=== PATIENT | female | born 1960 | race Caucasian/White ===

== ENCOUNTER 2022-04-10 10:31 | Emergency (ER) | payer OTHER ==
[2022-04-10] MEDS ORDERED: Zofran 4 MG/2 ML VIAL IV ONE (10:38)
[2022-04-10] MEDS ORDERED: PROTONIX 40 MG IV IV ONE ×2 (10:38→11:05)
--- NOTE | 2022-04-10 10:38 | ERPHSYRPT ---
- History of Present Illness Time Seen by Provider: 04/10/22 10:34 Source: patient, family, EMS Exam Limitations: no limitations Physician History: pt has been sobreath since yesterday and now with nausea. Denies CP or heart problems but has chronic lung problems. Denies Abd pain or neuro symptoms. Is on anxiety meds and ran out of her xanax 4 days ago. Chest has rhonchi - got one neb on ambulance. Ext without edema and neg homans - no erythema edema or swelling. Timing/Duration: yesterday Activities at Onset: none Severity of Dyspnea-Max: moderate Severity of Dyspnea-Current: moderate Possible Cause: occasional episodes, chronic episodes Modifying Factors: Improves With: albuterol nebulizer Associated Symptoms: anxiety, wheezing, weakness Allergies/Adverse Reactions: No Known Drug Allergies Allergy (Verified 04/10/22 10:42) Home Medications: Fluoxetine HCl 10 mg [Prozac 10 mg] 10 mg PO DAILY 05/30/14 [History] Hx Tetanus, Diphtheria Vaccination/Date Given: No Hx Influenza Vaccination/Date Given: No Hx Pneumococcal Vaccination/Date Given: No - Review of Systems Constitutional: No Fever, No Chills Eyes: No Symptoms Ears, Nose, & Throat: No Symptoms Respiratory: Dyspnea, No Cough Cardiac: No Chest Pain, No Edema, No Syncope Abdominal/Gastrointestinal: No Abdominal Pain, No Nausea, No Vomiting, No Diarrhea Genitourinary Symptoms: No Dysuria Musculoskeletal: No Back Pain, No Neck Pain Skin: No Rash Neurological: No Dizziness, No Focal Weakness, No Sensory Changes Psychological: No Symptoms Endocrine: No Symptoms Hematologic/Lymphatic: No Symptoms Immunological/Allergic: No Symptoms All Other Systems: Reviewed and Negative - Past Medical History Pertinent Past Medical History: Yes Psycho-Social History: Anxiety, Depression - Past Surgical History Past Surgical History: No - Social History Smoking Status: Current every day smoker Exposure to second hand smoke: No Drug Use: none Patient Lives Alone: No - Nursing Vital Signs Nursing Vital Signs: Initial Vital Signs O2 Sat by Pulse Oximetry 97 04/10/22 10:32 Pain Scale Pain Intensity 5 - Physical Exam General Appearance: no apparent distress, alert Eye Exam: PERRL/EOMI Neck Exam: normal inspection, supple Respiratory Exam: rhonchi Cardiovascular/Chest Exam: normal heart sounds, regular rate/rhythm Abdominal/Gastrointestinal Exam: soft, No tenderness, No distention, No mass Extremity Exam: non-tender, normal range of motion, normal inspection, no calf tenderness, no pedal edema Peripheral Pulses Exam: carotid (R): 2+, carotid (L): 2+, femoral (R): 2+, femoral (L): 2+, dorsalis-pedis (R): 2+, dorsalis-pedis (L): 2+ Neurologic Exam: alert, oriented x 3, cooperative, egg packer II-XII nml as tested, sensation nml, No motor deficits Skin Exam: normal color, warm, No dry SpO2 Interpretation: normal SpO2: 96 O2 Delivery: Room Air - Course Nursing assessment & vital signs reviewed: Yes EKG Interpreted by Me: NORMAL AXIS, prolonged QT interval, Non-specific ST Changes, Other (poor r wave prog. PVCs, ) Ordered Tests: Active Orders 24 hr Category Date Time Status [employer] STAT Care 04/10/22 10:42 Active EKG-ER Only STAT Care 04/10/22 10:38 Active IV Insertion STAT Care 04/10/22 10:38 Active Pulse Oximetry (ED) STAT Care 04/10/22 10:38 Active CHEST 1 VIEW (PORTABLE) Stat Exams 04/10/22 10:53 Taken AMYLASE Stat Lab 04/10/22 11:12 Completed CBC W DIFF Stat Lab 04/10/22 11:12 Completed CMP Stat Lab 04/10/22 11:12 Completed D-DIMER QUANTITATIVE Stat Lab 04/10/22 11:12 Completed LIPASE Stat Lab 04/10/22 11:12 Completed Lactic Acid Stat Lab 04/10/22 10:38 Completed Lactic Acid Stat Lab 04/10/22 13:05 Received NT PRO BNP Stat Lab 04/10/22 11:12 Completed SODIUM Stat Lab 04/10/22 11:36 Completed TROPONIN Q3H Lab 04/10/22 11:12 Completed TROPONIN Q3H Lab 04/10/22 13:45 Ordered TROPONIN Q3H Lab 04/10/22 16:45 Ordered TROPONIN Q3H Lab 04/10/22 19:45 Ordered TROPONIN Q3H Lab 04/10/22 22:45 Ordered UA W/RFX CULTURE Stat Lab 04/10/22 Ordered Respiratory Therapy Assessment DAILY RT 04/10/22 11:49 Completed Medication Summary Generic Name Dose Route Start Last Admin Trade Name Freq PRN Reason Stop Dose Admin Sodium Chloride 1,000 mls @ 50 mls/hr 04/10/22 10:45 04/10/22 11:11 Sodium Chloride 0.9% 1000 Ml IV 05/10/22 10:44 50 mls/hr .Q20H DG Administration Discontinued Medications Generic Name Dose Route Start Last Admin Trade Name Freq PRN Reason Stop Dose Admin Albuterol/Ipratropium 3 ml 04/10/22 10:43 04/10/22 10:59 Ipratropium/Albuterol Sulfate 3 Ml Ampul.Neb IH 04/10/22 10:44 3 ml STAT ONE Administration Albuterol/Ipratropium Confirm 04/10/22 10:52 Ipratropium/Albuterol Sulfate 3 Ml Ampul.Neb Administered 04/10/22 10:53 Dose 3 ml IH .STK-MED ONE Methylprednisolone Sodium 0 mg 04/10/22 10:43 04/10/22 11:15 Succinate 125 mg/ Sterile IV 04/10/22 10:44 125 mg Water 2 ml STAT ONE Administration Famotidine 20 mg 04/10/22 10:43 04/10/22 11:17 Famotidine 20 Mg/1 Vial IV 04/10/22 10:44 20 mg STAT ONE Administration Famotidine Confirm 04/10/22 11:04 Famotidine 20 Mg/1 Vial Administered 04/10/22 11:05 Dose 20 mg IV .STK-MED ONE Lorazepam 1 mg 04/10/22 10:45 04/10/22 11:10 Lorazepam 1 Mg Tablet PO 04/10/22 10:46 1 mg STAT ONE Administration Lorazepam Confirm 04/10/22 11:05 Lorazepam 1 Mg Tablet Administered 04/10/22 11:06 Dose 1 mg .ROUTE .STK-MED ONE Lorazepam 1 mg 04/10/22 11:48 04/10/22 12:14 Lorazepam 2 Mg/1 Ml 2 Mg Vial IV 04/10/22 11:49 1 mg STAT ONE Administration Lorazepam Confirm 04/10/22 12:11 Lorazepam 2 Mg/1 Ml 2 Mg Vial Administered 04/10/22 12:12 Dose 2 mg .ROUTE .STK-MED ONE Methylprednisolone Sodium Succinate Confirm 04/10/22 11:05 Methylprednis Sod Succ 125 Mg/2 Ml Vial Administered 04/10/22 11:06 Dose 125 mg .ROUTE .STK-MED ONE Ondansetron HCl 4 mg 04/10/22 10:38 04/10/22 11:18 Ondansetron Hcl 4 Mg/2 Ml Vial IV 04/10/22 10:39 4 mg STAT ONE Administration Ondansetron HCl Confirm 04/10/22 11:04 Ondansetron Hcl 4 Mg/2 Ml Vial Administered 04/10/22 11:05 Dose 4 mg .ROUTE .STK-MED ONE Pantoprazole Sodium 40 mg 04/10/22 10:38 04/10/22 11:12 Pantoprazole 40 Mg Vial IV 04/10/22 10:39 40 mg STAT ONE Administration Pantoprazole Sodium Confirm 04/10/22 11:05 Pantoprazole 40 Mg Vial Administered 04/10/22 11:06 Dose 40 mg IV .STK-MED ONE Prochlorperazine Edisylate 10 mg 04/10/22 11:47 04/10/22 12:14 Prochlorperazine Edisylate 10 Mg/2 Ml Vial IM 04/10/22 11:48 10 mg STAT ONE Administration Prochlorperazine Edisylate Confirm 04/10/22 12:11 Prochlorperazine Edisylate 10 Mg/2 Ml Vial Administered 04/10/22 12:12 Dose 10 mg .ROUTE .STK-MED ONE Sterile Water Confirm 04/10/22 11:04 Water For Injection,Sterile 10 Ml Vial Administered 04/10/22 11:05 Dose 10 ml IJ .STK-MED ONE Lab/Rad Data: Laboratory Result Diagrams 04/10/22 11:12 04/10/22 11:36 Laboratory Results 04/10/22 04/10/22 04/10/22 Range/Units 11:36 11:12 11:12 WBC (4.0-10.5) x10^3/uL RBC (4.1-5.4) x10^6/uL Hgb (12.0-16.0) g/dL Hct (35-47) % MCV (78-100) fL MCH (26-32) pg MCHC (32-36) g/dL RDW (11.5-14.0) % Plt Count (150-450) x10^3/uL MPV (7.5-11.0) fL Gran % (36.0-66.0) % Immature Gran % (Auto) (0.00-0.4) % Nucleat RBC Rel Count (0.00-0.1) % Eos # (Auto) (0-0.5) x10^3/uL Immature Gran # (Auto) (0.00-0.03) x10^3u/L Absolute Lymphs (auto) (1.0-4.6) x10^3/uL Absolute Monos (auto) (0.0-1.3) x10^3/uL Absolute Nucleated RBC (0.00-0.01) x10^3u/L Lymphocytes % (24.0-44.0) % Monocytes % (0.0-12.0) % Eosinophils % (0.00-5.0) % Basophils % (0.0-0.4) % Absolute Granulocytes (1.4-6.9) x10^3/uL Basophils # (0-0.4) x10^3/uL D-Dimer 0.20 (0.0-0.50) ng/mL Sodium 109 L* (137-145) mmol/L Potassium (3.5-5.1) mmol/L Chloride (98-107) mmol/L Carbon Dioxide (22-30) mmol/L Anion Gap (5-15) MEQ/L BUN (7-17) mg/dL Creatinine (0.52-1.04) mg/dL Estimated GFR ML/MIN Glucose (74-106) mg/dL Lactic Acid (0.4-2.0) Calcium (8.4-10.2) mg/dL Total Bilirubin (0.2-1.3) mg/dL AST (14-36) U/L ALT (0-35) U/L Alkaline Phosphatase (38-126) U/L Troponin I < 0.012 (0.000-0.034) ng/mL NT-Pro-B Natriuret Pep (0-900) pg/mL Serum Total Protein (6.3-8.2) g/dL Albumin (3.5-5.0) g/dL Amylase (30-110) U/L Lipase (23-300) U/L 04/10/22 04/10/22 04/10/22 Range/Units 11:12 11:12 10:38 WBC 14.1 H (4.0-10.5) x10^3/uL RBC 3.66 L (4.1-5.4) x10^6/uL Hgb 11.5 L (12.0-16.0) g/dL Hct 31.4 L (35-47) % MCV 85.8 (78-100) fL MCH 31.4 (26-32) pg MCHC 36.6 H (32-36) g/dL RDW 11.9 (11.5-14.0) % Plt Count 354 (150-450) x10^3/uL MPV 9.2 (7.5-11.0) fL Gran % 88.0 H (36.0-66.0) % Immature Gran % (Auto) 0.6 H (0.00-0.4) % Nucleat RBC Rel Count 0.0 (0.00-0.1) % Eos # (Auto) 0.07 (0-0.5) x10^3/uL Immature Gran # (Auto) 0.08 H (0.00-0.03) x10^3u/L Absolute Lymphs (auto) 0.49 L (1.0-4.6) x10^3/uL Absolute Monos (auto) 1.01 (0.0-1.3) x10^3/uL Absolute Nucleated RBC 0.00 (0.00-0.01) x10^3u/L Lymphocytes % 3.5 L (24.0-44.0) % Monocytes % 7.2 (0.0-12.0) % Eosinophils % 0.5 (0.00-5.0) % Basophils % 0.2 (0.0-0.4) % Absolute Granulocytes 12.44 H (1.4-6.9) x10^3/uL Basophils # 0.03 (0-0.4) x10^3/uL D-Dimer (0.0-0.50) ng/mL Sodium 108 L* (137-145) mmol/L Potassium 3.1 L (3.5-5.1) mmol/L Chloride 74 L (98-107) mmol/L Carbon Dioxide 20 L (22-30) mmol/L Anion Gap 17.2 H (5-15) MEQ/L BUN 4 L (7-17) mg/dL Creatinine 0.47 L (0.52-1.04) mg/dL Estimated GFR > 60.0 ML/MIN Glucose 141 H (74-106) mg/dL Lactic Acid 2.9 H (0.4-2.0) Calcium 8.5 (8.4-10.2) mg/dL Total Bilirubin 1.20 (0.2-1.3) mg/dL AST 74 H (14-36) U/L ALT 40 H (0-35) U/L Alkaline Phosphatase 251 H (38-126) U/L Troponin I (0.000-0.034) ng/mL NT-Pro-B Natriuret Pep 375 (0-900) pg/mL Serum Total Protein 6.9 (6.3-8.2) g/dL Albumin 3.8 (3.5-5.0) g/dL Amylase 80 (30-110) U/L Lipase 67 (23-300) U/L - Progress Progress: improved, re-examined Air Movement: good Progress Note: 04/10/22 13:[address] Haley at [facility] and she will accept and this is OK with patient as well. Blood Culture(s) Obtained: No Antibiotics given: No Discussed with Dr.: Other (Dr. Haley) Counseled pt/family regarding: lab results, diagnosis, need for follow-up, rad results - Departure Departure Disposition: Transfer Clinical Impression: Hyponatremia, Medication withdrawal Condition: Good Critical Care Time: Yes Critical Care Time(excluding separately billable procedures): Critical 30-74 mins (monitoring for neuro seizure precautions 30 minutes.) Referrals: DOCTOR,NO FAMILY [NON-STAFF PHY W/O PRIVILEGES] - Follow up/PCP as directed
[2022-04-10] MEDS ORDERED: DUONEB 0.5-3 MG/3 ml Neb IH ONE ×2 (10:43→10:52)
[2022-04-10] MEDS ORDERED: Pepcid 20 MG VIAL IV ONE ×2 (10:43→11:04)
[2022-04-10] MEDS ORDERED: solu-MEDROL 125 MG, Sterile H2O 10 ml 2 ML IV ONE ×2 (10:43)
[2022-04-10] MEDS ORDERED: Sodium Chloride 0.9% 1000 ML 1,000 ML IV SCH (10:45)
[2022-04-10] MEDS ORDERED: Ativan 1 MG PO ONE (10:45)
[2022-04-10] MEDS ORDERED: Sterile H2O 10 ml IJ ONE (11:04)
[2022-04-10] MEDS ORDERED: Zofran 4 MG/2 ML VIAL ONE (11:04)
[2022-04-10] MEDS ORDERED: Sodium Chloride 0.9% 1000 ML 1,000 ML ONE (11:05)
[2022-04-10] MEDS ORDERED: Ativan 1 MG ONE (11:05)
[2022-04-10] MEDS ORDERED: solu-MEDROL ONE (11:05)
[2022-04-10 11:11] LABS: Absolute Neutrophil Ct (ANC) 12.44 x10^3/uL (1.4-6.9); Basophil (Absolute #) 0.03 x10^3/uL (0-0.4); Eosinophil % 0.5 % (0.00-5.0); Eosinophil (Absolute #) 0.07 x10^3/uL (0-0.5); Hematocrit 31.4 % (35-47); Hemoglobin 11.5 g/dL (12.0-16.0); Lymphocyte (Absolute #) 0.49 x10^3/uL (1.0-4.6); Lymphocytes % 3.5 % (24.0-44.0); Mean Cell Volume 85.8 fL (78-100); Mean Corpuscular Hemoglobin 31.4 pg (26-32); Mean Corpuscular Hgb Concent. 36.6 g/dL (32-36); Mean Platelet Volume 9.2 fL (7.5-11.0); Monocyte (Absolute #) 1.01 x10^3/uL (0.0-1.3); Monocytes % 7.2 % (0.0-12.0); Platelet Count 354 x10^3/uL (150-450); Red Blood Count 3.66 x10^6/uL (4.1-5.4); Red Cell Distribution Width 11.9 % (11.5-14.0); White Blood Count 14.1 x10^3/uL (4.0-10.5)
[2022-04-10 11:31] LABS: ALBUMIN 3.8 g/dL (3.5-5.0); ALKALINE PHOSPHATASE 251 U/L (38-126); AMYLASE 80 U/L (30-110); ANION GAP 17.2 MEQ/L (5-15); BLOOD UREA NITROGEN 4 mg/dL (7-17); CHLORIDE 74 mmol/L (98-107); Calcium 8.5 mg/dL (8.4-10.2); Carbon Dioxide 20 mmol/L (22-30); Creatinine 1 0.47 mg/dL (0.52-1.04); EST GLOMERULAR FILTRATION RATE > 60.0 ML/MIN; Glucose 141 mg/dL (74-106); LIPASE 67 U/L (23-300); NT PRO BNP 375 pg/mL (0-900); Potassium 3.1 mmol/L (3.5-5.1); SGOT/AST 74 U/L (14-36); SGPT/ALT 40 U/L (0-35); Total Protein 6.9 g/dL (6.3-8.2)
[2022-04-10 11:36] LABS: SODIUM 108 mmol/L (137-145)
[2022-04-10] MEDS ORDERED: Compazine 10 MG/2 ML IM ONE (11:47)
[2022-04-10] MEDS ORDERED: Ativan 2 MG/1 ML VIAL IV ONE (11:48)
[2022-04-10] MEDS ORDERED: Ativan 2 MG/1 ML VIAL ONE (12:11)
[2022-04-10] MEDS ORDERED: Compazine 10 MG/2 ML ONE (12:11)
[2022-04-10 14:00] LABS: Appearance CLEAR (CLEAR); Bilirubin NEGATIVE (NEGATIVE); Dipstick done @ ? MAIN LAB; Glucose NEGATIVE (NEGATIVE); Ketones SMALL-15 (NEGATIVE); Nitrite NEGATIVE (NEGATIVE); Protein,Urine Dip NEGATIVE (Negative); RBC NEGATIVE Ery/ul (0-5); Specific Gravity 1.015 (1.005-1.025); Urobilinogen 0.2 mg/dL (0-1)
[2022-04-10 14:02] LABS: Urine Cultured Indicated? NO
[2022-04-10 14:16] VITALS: BP 165/82; PULSE 103; O2SAT 93
[2022-04-10 15:08] LABS: Slide Review 1 YES
--- NOTE | 2022-04-10 21:03 | XRAY ---
Indication: Short of breath. Comparison: May 30, 2014. Portable chest again hyperinflated and clear. Heart not enlarged with new large hiatal hernia and intrathoracic stomach. Bony thorax intact again with mild osteopenia, degenerative changes, and scoliosis.
== END 2022-04-10 14:36 | disposition short-term general hospital (02) ==
LOC: ED 10:31
DX: E87.1 Hypo-osmolality and hyponatremia (principal); F19.239 Other psychoactive substance dependence with withdrawal, unspecified; R11.0 Nausea; R06.2 Wheezing; R53.1 Weakness; Z72.0 Tobacco use; Z79.899 Other long term (current) drug therapy
CPT/HCPCS: 36000; 36415; 71045; 80053; 81015; 82150; 83605; 83690; 83880; 84295; 84484; 85025; 85379; 93005; 93041; 94640; 94760; 96372; 96374; 96375; 99285; 99291; J2060; J2405; J2930; A9270-GY

== ENCOUNTER 2022-08-15 10:27 | Emergency (ER) | payer OTHER ==
[2022-08-15] MEDS ORDERED: Ativan 2 MG/1 ML VIAL IV ONE ×2 (10:35→15:00)
[2022-08-15] MEDS ORDERED: BABY ASPIRIN 81 MG CHEW PO ONE (10:37)
[2022-08-15] MEDS ORDERED: Sodium Chloride 0.9% 1000 ML 1,000 ML IV STA ×2 (10:37→11:50)
[2022-08-15] MEDS ORDERED: Sodium Chloride 0.9% 1000 ML 1,000 ML ONE ×2 (10:43→11:51)
[2022-08-15] MEDS ORDERED: BABY ASPIRIN 81 MG CHEW ONE (10:43)
[2022-08-15] MEDS ORDERED: Ativan 2 MG/1 ML VIAL ONE ×2 (10:44→15:06)
[2022-08-15] MEDS ORDERED: Zofran 4 MG/2 ML VIAL ONE (10:48)
[2022-08-15] MEDS ORDERED: Zofran 4 MG/2 ML VIAL IV ONE (10:49)
[2022-08-15 10:54] LABS: Absolute Neutrophil Ct (ANC) 5.08 x10^3/uL (1.4-6.9); Basophil (Absolute #) 0.14 x10^3/uL (0-0.4); Eosinophil (Absolute #) 0.08 x10^3/uL (0-0.5); Hematocrit 35.9 % (35-47); Hemoglobin 12.3 g/dL (12.0-16.0); Lymphocyte (Absolute #) 1.12 x10^3/uL (1.0-4.6); Lymphocytes % 14.7 % (24.0-44.0); Mean Cell Volume 86.9 fL (78-100); Mean Corpuscular Hemoglobin 29.8 pg (26-32); Mean Corpuscular Hgb Concent. 34.3 g/dL (32-36); Mean Platelet Volume 9.4 fL (7.5-11.0); Monocyte (Absolute #) 1.14 x10^3/uL (0.0-1.3); Neutrophil % 66.7 % (36.0-66.0); Platelet Count 334 x10^3/uL (150-450); Red Blood Count 4.13 x10^6/uL (4.1-5.4); Red Cell Distribution Width 12.4 % (11.5-14.0); White Blood Count 7.6 x10^3/uL (4.0-10.5)
[2022-08-15 11:09] LABS: ALBUMIN 3.7 g/dL (3.5-5.0); ALKALINE PHOSPHATASE 258 U/L (38-126); AMYLASE 75 U/L (30-110); ANION GAP 17.4 MEQ/L (5-15); BLOOD UREA NITROGEN 10 mg/dL (7-17); CHLORIDE 97 mmol/L (98-107); Calcium 8.1 mg/dL (8.4-10.2); Creatinine 1 0.49 mg/dL (0.52-1.04); EST GLOMERULAR FILTRATION RATE > 60.0 ML/MIN; ETHYL ALCOHOL 87 mg/dL (0-10); Glucose 106 mg/dL (74-106); LIPASE 161 U/L (23-300); MAGNESIUM 1.8 mg/dL (1.6-2.3); Potassium 3.6 mmol/L (3.5-5.1); SGOT/AST 85 U/L (14-36); SGPT/ALT 40 U/L (0-35); SODIUM 127 mmol/L (137-145); Total Protein 6.8 g/dL (6.3-8.2)
[2022-08-15 11:14] LABS: Carbon Dioxide 16 mmol/L (22-30)
--- NOTE | 2022-08-15 11:35 | ERPHSYRPT ---
- History of Present Illness Time Seen by Provider: 08/15/22 10:35 Historian: patient, family Exam Limitations: no limitations Patient Subjective Stated Complaint: Pt states "I have a headache, I am short of breath, I am nauseated." Triage Nursing Assessment: Pt presented alert and oriented X 3, skin pwd. Pt tachypneic, able to speak in clear full sentences pt anxious. unable to sit still Physician History: Patient is a 62-year-old tremulous anxious white female who presents with a complaint of shortness of breath headache especially in the back of her head chest pain which radiates to the neck. She started with all these complaints about 2 hours ago she has been sick since 4 AM. She is out of Xanax and is qu ite anxious she admits to taking 3 tablets a day instead of the recommended and prescribed 2 tablets. The significant other of this patient reports that a year or so ago she had a fall hit the back of her head had a large hematoma and that she has complained of pain in her head and neck since.The patient was recently admitted hospitalized at [facility] for a hypoknee Trimix situation. Timing/Duration: today Activities at Onset: emotional stress Quality: aching Location: substernal Chest Pain Radiation: neck Severity of Pain-Max: moderate Severity of Pain-Current: moderate Modifying Factors: Improves With: nothing Prior Chest Pain/Cardiac Workup: no prior cardiac workup Nitro Today/Relief: no nitro taken today Aspirin Treatment Today: no aspirin today Allergies/Adverse Reactions: No Known Drug Allergies Allergy (Verified 04/10/22 10:42) Home Medications: Fluoxetine HCl 10 mg [Prozac 10 mg] 10 mg PO DAILY 05/30/14 [History] Donepezil HCl [Aricept] 5 mg PO DAILY 08/15/22 [History] Levothyroxine Sodium 50 Mcg [Synthroid 50 Mcg] 50 mcg PO DAILY 08/15/22 [History] Hx Tetanus, Diphtheria Vaccination/Date Given: No Hx Influenza Vaccination/Date Given: No Hx Pneumococcal Vaccination/Date Given: No Immunizations Up to Date: Yes Travel Risk - International Travel Have you traveled outside of the country in past 3 weeks: No - Coronavirus Screening Are you exhibiting any of the following symptoms?: Yes Symptoms: Shortness of Breath, Headaches/Body Aches/Fatigue - Vaccine Status Have you recieved a Covid-19 vaccination: Yes Ribbon Cleaner: Unknown - Vaccination Dates Date of 2cond Vaccination (if applicable): 2020 Dates if Unknown: ? - Review of Systems Constitutional: No Fever, No Chills Eyes: No Symptoms Ears, Nose, & Throat: No Symptoms Respiratory: No Cough, No Dyspnea Cardiac: No Chest Pain, No Edema, No Syncope Abdominal/Gastrointestinal: No Abdominal Pain, No Nausea, No Vomiting, No Diarrhea Genitourinary Symptoms: No Dysuria Musculoskeletal: No Back Pain, No Neck Pain Skin: No Rash Neurological: Tremors, No Dizziness, No Focal Weakness, No Sensory Changes Psychological: No Symptoms, Anxiety Endocrine: No Symptoms All Other Systems: Reviewed and Negative - Past Medical History Pertinent Past Medical History: Yes Psycho-Social History: Anxiety, Depression - Past Surgical History Past Surgical History: No - Social History Smoking Status: Current every day smoker Exposure to second hand smoke: No Drug Use: none Patient Lives Alone: No - Nursing Vital Signs Nursing Vital Signs: Initial Vital Signs Temperature 97.4 F 08/15/22 10:28 Pulse Rate 104 H 08/15/22 10:28 Respiratory Rate 26 H 08/15/22 10:28 Blood Pressure 146/87 08/15/22 10:28 O2 Sat by Pulse Oximetry 98 08/15/22 10:28 Pain Scale Pain Intensity 6 - Physical Exam General Appearance: moderate distress, alert Eye Exam: PERRL/EOMI, eyes nml inspection Ears, Nose, Throat Exam: normal ENT inspection, moist mucous membranes Neck Exam: normal inspection, non-tender, supple, full range of motion Respiratory Exam: normal breath sounds, lungs clear, No respiratory distress Cardiovascular Exam: regular rate/rhythm, normal heart sounds Gastrointestinal/Abdomen Exam: soft, No tenderness, No mass Back Exam: normal inspection, No CVA tenderness, No vertebral tenderness Extremity Exam: normal inspection, normal range of motion Neurologic Exam: alert, oriented x 3, cooperative, normal mood/affect, sensation nml, No motor deficits Skin Exam: normal color, warm, dry SpO2 Interpretation: normal SpO2: 99 O2 Delivery: Room Air - Course Nursing assessment & vital signs reviewed: Yes - Radiology Exams Chest X-ray Interpretation: Negative - CT Exams Abdomen/Pelvis CT Interpretation: Negative Ordered Tests: Active Orders 24 hr Category Date Time Status EKG-ER Only STAT Care 08/15/22 10:37 Active ABDOMEN AND PELVIS W/0 CONTRAS [CT] Stat Exams 08/15/22 13:14 Completed CHEST 1 VIEW (PORTABLE) Stat Exams 08/15/22 10:38 Completed HEAD WITHOUT CONTRAST [CT] Stat Exams 08/15/22 10:37 Completed AMYLASE Stat Lab 08/15/22 10:41 Completed CBC W DIFF Stat Lab 08/15/22 10:41 Completed CMP Stat Lab 08/15/22 10:41 Completed D-DIMER QUANTITATIVE Stat Lab 08/15/22 10:41 Completed ETHYL ALCOHOL Stat Lab 08/15/22 10:41 Completed Erythrocyte Sedimentation Rate Stat Lab 08/15/22 10:41 Completed LIPASE Stat Lab 08/15/22 10:41 Completed Lactic Acid Stat Lab 08/15/22 10:42 Completed Lactic Acid Stat Lab 08/15/22 12:47 Completed MAGNESIUM Stat Lab 08/15/22 10:41 Completed TROPONIN Q4H Lab 08/15/22 10:41 Completed TROPONIN Q4H Lab 08/15/22 14:36 Completed TROPONIN Q4H Lab 08/15/22 18:45 Ordered UA W/RFX CULTURE Stat Lab 08/15/22 11:46 Completed Urine Triage Profile Stat Lab 08/15/22 11:37 Completed Medication Summary Discontinued Medications Generic Name Dose Route Start Last Admin Trade Name Lazarusq PRN Reason Stop Dose Admin Aspirin 324 mg 08/15/22 10:37 08/15/22 10:48 Aspirin 81 Mg Tab.Chew PO 08/15/22 10:38 324 mg STAT ONE Administration Aspirin Confirm 08/15/22 10:43 Aspirin 81 Mg Tab.Chew Administered 08/15/22 10:44 Dose 324 mg .ROUTE .STK-MED ONE Sodium Chloride 1,000 mls @ 999 mls/hr 08/15/22 10:37 08/15/22 11:49 Sodium Chloride 0.9% 1000 Ml IV 08/15/22 11:37 Infused .Q1H1M STA Infusion Sodium Chloride Confirm 08/15/22 10:43 Sodium Chloride 0.9% 1000 Ml Administered 08/15/22 10:44 Dose 1,000 mls @ ud .ROUTE .STK-MED ONE Sodium Chloride 1,000 mls @ 999 mls/hr 08/15/22 11:50 08/15/22 13:36 Sodium Chloride 0.9% 1000 Ml IV 08/15/22 12:50 Infused .Q1H1M STA Infusion Sodium Chloride Confirm 08/15/22 11:51 Sodium Chloride 0.9% 1000 Ml Administered 08/15/22 11:52 Dose 1,000 mls @ ud .ROUTE .STK-MED ONE Ketorolac Tromethamine 30 mg 08/15/22 11:45 08/15/22 11:48 Ketorolac Tromethamine 30 Mg/Ml Inj IV 08/15/22 11:46 30 mg STAT ONE Administration Ketorolac Tromethamine Confirm 08/15/22 11:47 Ketorolac Tromethamine 30 Mg/Ml Inj Administered 08/15/22 11:48 Dose 30 mg .ROUTE .STK-MED ONE Lorazepam 1 mg 08/15/22 10:35 08/15/22 10:46 Lorazepam 2 Mg/1 Ml 2 Mg Vial IV 08/15/22 10:36 1 mg STAT ONE Administration Lorazepam Confirm 08/15/22 10:44 Lorazepam 2 Mg/1 Ml 2 Mg Vial Administered 08/15/22 10:45 Dose 2 mg .ROUTE .STK-MED ONE Lorazepam 1 mg 08/15/22 15:00 08/15/22 15:08 Lorazepam 2 Mg/1 Ml 2 Mg Vial IV 08/15/22 15:01 1 mg STAT ONE Administration Lorazepam Confirm 08/15/22 15:06 Lorazepam 2 Mg/1 Ml 2 Mg Vial Administered 08/15/22 15:07 Dose 2 mg .ROUTE .STK-MED ONE Ondansetron HCl 4 mg 08/15/22 10:49 08/15/22 10:54 Ondansetron Hcl 4 Mg/2 Ml Vial IV 08/15/22 10:50 4 mg STAT ONE Administration Ondansetron HCl Confirm 08/15/22 10:48 Ondansetron Hcl 4 Mg/2 Ml Vial Administered 08/15/22 10:49 Dose 4 mg .ROUTE .STK-MED ONE Lab/Rad Data: Laboratory Result Diagrams 08/15/22 10:41 08/15/22 10:41 Laboratory Results 08/15/22 08/15/22 08/15/22 Range/Units 14:36 12:47 11:46 WBC (4.0-10.5) x10^3/uL RBC (4.1-5.4) x10^6/uL Hgb (12.0-16.0) g/dL Hct (35-47) % MCV (78-100) fL MCH (26-32) pg MCHC (32-36) g/dL RDW (11.5-14.0) % Plt Count (150-450) x10^3/uL MPV (7.5-11.0) fL Gran % (36.0-66.0) % Immature Gran % (Auto) (0.00-0.4) % Nucleat RBC Rel Count (0.00-0.1) % Eos # (Auto) (0-0.5) x10^3/uL Immature Gran # (Auto) (0.00-0.03) x10^3u/L Absolute Lymphs (auto) (1.0-4.6) x10^3/uL Absolute Monos (auto) (0.0-1.3) x10^3/uL Absolute Nucleated RBC (0.00-0.01) x10^3u/L Lymphocytes % (24.0-44.0) % Monocytes % (0.0-12.0) % Eosinophils % (0.00-5.0) % Basophils % (0.0-0.4) % Absolute Granulocytes (1.4-6.9) x10^3/uL Basophils # (0-0.4) x10^3/uL ESR (0-20) mm/hr D-Dimer (0.0-0.50) mg/L Sodium (137-145) mmol/L Potassium (3.5-5.1) mmol/L Chloride (98-107) mmol/L Carbon Dioxide (22-30) mmol/L Anion Gap (5-15) MEQ/L BUN (7-17) mg/dL Creatinine (0.52-1.04) mg/dL Estimated GFR ML/MIN Glucose (74-106) mg/dL Lactic Acid 1.2 (0.4-2.0) Calcium (8.4-10.2) mg/dL Magnesium (1.6-2.3) mg/dL Total Bilirubin (0.2-1.3) mg/dL AST (14-36) U/L ALT (0-35) U/L Alkaline Phosphatase (38-126) U/L Troponin I < 0.012 (0.000-0.034) ng/mL Serum Total Protein (6.3-8.2) g/dL Albumin (3.5-5.0) g/dL Amylase (30-110) U/L Lipase (23-300) U/L Urinalys Dipstick Clnc MAIN LAB Urine Color YELLOW (YELLOW) Urine Appearance CLEAR (CLEAR) Urine pH 7.0 (5-6) Ur Specific [place] >=1.030 (1.005-1.025) POC Urine Protein Conf NEGATIVE (Negative) Urine Ketones NEGATIVE (NEGATIVE) Urine Nitrite NEGATIVE (NEGATIVE) Urine Bilirubin NEGATIVE (NEGATIVE) Urine Urobilinogen 0.2 (0-1) mg/dL Urine Leukocytes NEGATIVE (NEGATIVE) Urine WBC (Auto) Not Reportable Urine RBC (Auto) 3-5 (0-2) /HPF U Epithel Cells (Auto) RARE (FEW) /HPF Urine Bacteria (Auto) Not Reportable Urine RBC LARGE (0-5) Jorge L/ul Ur Culture Indicated? NO Urine Glucose NEGATIVE (NEGATIVE) mg/dL Urine Opiates Level (NEGATIVE) Ur Methadone (NEGATIVE) Urine Barbiturates (NEGATIVE) Ur Phencyclidine (PCP) (NEGATIVE) Urine Amphetamine (NEGATIVE) U Benzodiazepine Level (NEGATIVE) Urine Cocaine (NEGATIVE) Urine Marijuana (THC) (NEGATIVE) Ethyl Alcohol (0-10) mg/dL 08/15/22 08/15/22 08/15/22 Range/Units 11:37 10:42 10:41 WBC (4.0-10.5) x10^3/uL RBC (4.1-5.4) x10^6/uL Hgb (12.0-16.0) g/dL Hct (35-47) % MCV (78-100) fL MCH (26-32) pg MCHC (32-36) g/dL RDW (11.5-14.0) % Plt Count (150-450) x10^3/uL MPV (7.5-11.0) fL Gran % (36.0-66.0) % Immature Gran % (Auto) (0.00-0.4) % Nucleat RBC Rel Count (0.00-0.1) % Eos # (Auto) (0-0.5) x10^3/uL Immature Gran # (Auto) (0.00-0.03) x10^3u/L Absolute Lymphs (auto) (1.0-4.6) x10^3/uL Absolute Monos (auto) (0.0-1.3) x10^3/uL Absolute Nucleated RBC (0.00-0.01) x10^3u/L Lymphocytes % (24.0-44.0) % Monocytes % (0.0-12.0) % Eosinophils % (0.00-5.0) % Basophils % (0.0-0.4) % Absolute Granulocytes (1.4-6.9) x10^3/uL Basophils # (0-0.4) x10^3/uL ESR (0-20) mm/hr D-Dimer (0.0-0.50) mg/L Sodium (137-145) mmol/L Potassium (3.5-5.1) mmol/L Chloride (98-107) mmol/L Carbon Dioxide (22-30) mmol/L Anion Gap (5-15) MEQ/L BUN (7-17) mg/dL Creatinine (0.52-1.04) mg/dL Estimated GFR ML/MIN Glucose (74-106) mg/dL Lactic Acid 4.2 H (0.4-2.0) Calcium (8.4-10.2) mg/dL Magnesium (1.6-2.3) mg/dL Total Bilirubin (0.2-1.3) mg/dL AST (14-36) U/L ALT (0-35) U/L Alkaline Phosphatase (38-126) U/L Troponin I < 0.012 (0.000-0.034) ng/mL Serum Total Protein (6.3-8.2) g/dL Albumin (3.5-5.0) g/dL Amylase (30-110) U/L Lipase (23-300) U/L Urinalys Dipstick Clnc Urine Color (YELLOW) Urine Appearance (CLEAR) Urine pH (5-6) Ur Specific [place] (1.005-1.025) POC Urine Protein Conf (Negative) Urine Ketones (NEGATIVE) Urine Nitrite (NEGATIVE) Urine Bilirubin (NEGATIVE) Urine Urobilinogen (0-1) mg/dL Urine Leukocytes (NEGATIVE) Urine WBC (Auto) Urine RBC (Auto) (0-2) /HPF U Epithel Cells (Auto) (FEW) /HPF Urine Bacteria (Auto) Urine RBC (0-5) Jorge L/ul Ur Culture Indicated? Urine Glucose (NEGATIVE) mg/dL Urine Opiates Level NEGATIVE (NEGATIVE) Ur Methadone NEGATIVE (NEGATIVE) Urine Barbiturates NEGATIVE (NEGATIVE) Ur Phencyclidine (PCP) NEGATIVE (NEGATIVE) Urine Amphetamine NEGATIVE (NEGATIVE) U Benzodiazepine Level NEGATIVE (NEGATIVE) Urine Cocaine NEGATIVE (NEGATIVE) Urine Marijuana (THC) NEGATIVE (NEGATIVE) Ethyl Alcohol (0-10) mg/dL 08/15/22 08/15/22 08/15/22 Range/Units 10:41 10:41 10:41 WBC 7.6 (4.0-10.5) x10^3/uL RBC 4.13 (4.1-5.4) x10^6/uL Hgb 12.3 (12.0-16.0) g/dL Hct 35.9 (35-47) % MCV 86.9 (78-100) fL MCH 29.8 (26-32) pg MCHC 34.3 (32-36) g/dL RDW 12.4 (11.5-14.0) % Plt Count 334 (150-450) x10^3/uL MPV 9.4 (7.5-11.0) fL Gran % 66.7 H (36.0-66.0) % Immature Gran % (Auto) 0.8 H (0.00-0.4) % Nucleat RBC Rel Count 0.0 (0.00-0.1) % Eos # (Auto) 0.08 (0-0.5) x10^3/uL Immature Gran # (Auto) 0.06 H (0.00-0.03) x10^3u/L Absolute Lymphs (auto) 1.12 (1.0-4.6) x10^3/uL Absolute Monos (auto) 1.14 (0.0-1.3) x10^3/uL Absolute Nucleated RBC 0.00 (0.00-0.01) x10^3u/L Lymphocytes % 14.7 L (24.0-44.0) % Monocytes % 15.0 H (0.0-12.0) % Eosinophils % 1.0 (0.00-5.0) % Basophils % 1.8 (0.0-0.4) % Absolute Granulocytes 5.08 (1.4-6.9) x10^3/uL Basophils # 0.14 (0-0.4) x10^3/uL ESR 11 (0-20) mm/hr D-Dimer < 0.19 (0.0-0.50) mg/L Sodium 127 L (137-145) mmol/L Potassium 3.6 (3.5-5.1) mmol/L Chloride 97 L (98-107) mmol/L Carbon Dioxide 16 L* (22-30) mmol/L Anion Gap 17.4 H (5-15) MEQ/L BUN 10 (7-17) mg/dL Creatinine 0.49 L (0.52-1.04) mg/dL Estimated GFR > 60.0 ML/MIN Glucose 106 (74-106) mg/dL Lactic Acid (0.4-2.0) Calcium 8.1 L (8.4-10.2) mg/dL Magnesium 1.8 (1.6-2.3) mg/dL Total Bilirubin 0.30 (0.2-1.3) mg/dL AST 85 H (14-36) U/L ALT 40 H (0-35) U/L Alkaline Phosphatase 258 H (38-126) U/L Troponin I (0.000-0.034) ng/mL Serum Total Protein 6.8 (6.3-8.2) g/dL Albumin 3.7 (3.5-5.0) g/dL Amylase 75 (30-110) U/L Lipase 161 (23-300) U/L Urinalys Dipstick Clnc Urine Color (YELLOW) Urine Appearance (CLEAR) Urine pH (5-6) Ur Specific [place] (1.005-1.025) POC Urine Protein Conf (Negative) Urine Ketones (NEGATIVE) Urine Nitrite (NEGATIVE) Urine Bilirubin (NEGATIVE) Urine Urobilinogen (0-1) mg/dL Urine Leukocytes (NEGATIVE) Urine WBC (Auto) Urine RBC (Auto) (0-2) /HPF U Epithel Cells (Auto) (FEW) /HPF Urine Bacteria (Auto) Urine RBC (0-5) Jorge L/ul Ur Culture Indicated? Urine Glucose (NEGATIVE) mg/dL Urine Opiates Level (NEGATIVE) Ur Methadone (NEGATIVE) Urine Barbiturates (NEGATIVE) Ur Phencyclidine (PCP) (NEGATIVE) Urine Amphetamine (NEGATIVE) U Benzodiazepine Level (NEGATIVE) Urine Cocaine (NEGATIVE) Urine Marijuana (THC) (NEGATIVE) Ethyl Alcohol 87 H (0-10) mg/dL - Progress Progress: improved Air Movement: good Blood Culture(s) Obtained: No Antibiotics given: No - Departure Departure Disposition: Home Clinical Impression: Hyponatremia, Hematuria, Alcohol abuse, Benzodiazepine dependence, Medication withdrawal Condition: Stable Critical Care Time: No Referrals: JAIMIE KANG [Primary Care Provider] - Follow up/PCP as directed Instructions: Blood in the Urine (Hematuria), Adult (DC) Prescriptions: Hydrocodone/Acetaminophen [Hydrocodone-Acetamin 5-325 mg] 1 tab PO Q6HPRN PRN 3 Days #12 tablet MDD 4 PRN Reason: Pain
[2022-08-15 11:38] LABS: Erythrocyte Sedimentation Rate 11 mm/hr (0-20)
--- NOTE | 2022-08-15 11:44 | XRAY ---
Indication: Chest pain and short of breath. Comparison: April 10, 2022 Portable chest remains hyperinflated and clear with incidental left mid lung calcified granuloma. Heart is now enlarged. Again large hiatal hernia with intrathoracic stomach. Bony thorax intact.
[2022-08-15] MEDS ORDERED: TORAdol 30 mg Injection IV ONE (11:45)
--- NOTE | 2022-08-15 11:46 | XRAY ---
Indication: Headache. No known injury. Multiple contiguous axial images obtained through the head without contrast. Comparison: None Age-appropriate global atrophy. No acute intracranial hemorrhage, abnormal extra-axial fluid collection, or mass effect. Fourth ventricle is midline without hydrocephalus. Bony calvarium intact. Visualized paranasal sinuses and mastoid air cells are clear. Impression: Negative CT head without contrast exam.
[2022-08-15] MEDS ORDERED: TORAdol 30 mg Injection ONE (11:47)
[2022-08-15 12:06] LABS: Appearance CLEAR (CLEAR); Bilirubin NEGATIVE (NEGATIVE); Dipstick done @ ? MAIN LAB; Glucose NEGATIVE (NEGATIVE); Ketones NEGATIVE (NEGATIVE); Nitrite NEGATIVE (NEGATIVE); Protein,Urine Dip NEGATIVE (Negative); RBC LARGE Ery/ul (0-5); Specific Gravity >=1.030 (1.005-1.025); Urobilinogen 0.2 mg/dL (0-1)
[2022-08-15 12:07] LABS: Epithelial Cells RARE /HPF (FEW); Urine Cultured Indicated? NO
[2022-08-15 12:18] LABS: Amphetamine,Urine NEGATIVE (NEGATIVE); Barbiturate,Urine NEGATIVE (NEGATIVE); Benzodiazepine,Urine NEGATIVE (NEGATIVE); Cocaine,Urine NEGATIVE (NEGATIVE); Methadone,Urine NEGATIVE (NEGATIVE); Opiate,Urine NEGATIVE (NEGATIVE); PCP,Urine NEGATIVE (NEGATIVE); THC,Urine NEGATIVE (NEGATIVE)
[2022-08-15 13:12] VITALS: BP 151/82; PULSE 97
--- NOTE | 2022-08-15 13:45 | XRAY ---
Indication: Hematuria. Multiple contiguous axial images obtained through the abdomen and pelvis without contrast using renal stone protocol. Comparison: None Lung bases clear. Heart not enlarged. Moderate size hiatal hernia with partial intrathoracic stomach. Anterior right lung base also demonstrates incidental small Morgagni hernia with herniated omental fat and transverse colon. No renal calculus or evidence for obstructive uropathy in either system. Noncontrasted stomach and bowel loops appear nonobstructed with normal appendix and scattered descending/sigmoid diverticulosis. No free fluid/air. Fatty liver and tiny hepatic/splenic calcified granulomas. Remaining liver, gallbladder, pancreas, spleen, adrenal glands, kidneys, ureters, bladder, and uterus are unremarkable for noncontrast exam. Minimal scattered aortoiliac calcifications without AAA. Osseous structures intact. Impression: 1. Negative renal calculus or evidence for obstructive uropathy. 2. Hiatal hernia with partial intrathoracic stomach, right hemithorax Morgani hernia, colonic diverticulosis, fatty liver, and old granulomatous disease. 3. Remaining CT abdomen/pelvis without contrast exam is negative.
[2022-08-15 15:14] VITALS: O2SAT 99
== END 2022-08-15 15:32 | disposition home or self-care (01) ==
LOC: ED 10:27
DX: F13.239 Sedative, hypnotic or anxiolytic dependence with withdrawal, unspecified (principal); F10.10 Alcohol abuse, uncomplicated; T42.4X5A Adverse effect of benzodiazepines, initial encounter; E87.1 Hypo-osmolality and hyponatremia; R31.9 Hematuria, unspecified; R06.02 Shortness of breath; R51.9 Headache, unspecified; M54.2 Cervicalgia; R07.9 Chest pain, unspecified; Z72.0 Tobacco use; Z79.891 Long term (current) use of opiate analgesic; Z79.899 Other long term (current) drug therapy
CPT/HCPCS: 36415; 70450; 71045; 74176; 80053; 80307; 81015; 82150; 83605; 83690; 83735; 84484; 85025; 85379; 85652; 93005; 96360; 96374; 96375; 96376; 99284; G0480; J1885; J2060; J2405; A9270-GY

== ENCOUNTER 2022-08-16 21:21 | Observation (INO) | payer OTHER ==
[2022-08-16 21:57] LABS: Hematocrit 37.6 % (35-47); Hemoglobin 13.2 g/dL (12.0-16.0); Mean Cell Volume 86.2 fL (78-100); Mean Corpuscular Hemoglobin 30.3 pg (26-32); Mean Corpuscular Hgb Concent. 35.1 g/dL (32-36); Mean Platelet Volume 9.5 fL (7.5-11.0); Platelet Count 326 x10^3/uL (150-450); Red Blood Count 4.36 x10^6/uL (4.1-5.4); Red Cell Distribution Width 11.9 % (11.5-14.0)
[2022-08-16 22:13] LABS: ACETAMINOPHEN < 10 ug/ml (10-30); ALBUMIN 4.2 g/dL (3.5-5.0); ALKALINE PHOSPHATASE 267 U/L (38-126); ANION GAP 17.5 MEQ/L (5-15); BLOOD UREA NITROGEN 12 mg/dL (7-17); Carbon Dioxide 23 mmol/L (22-30); Creatinine 1 0.47 mg/dL (0.52-1.04); EST GLOMERULAR FILTRATION RATE > 60.0 ML/MIN; ETHYL ALCOHOL < 10 mg/dL (0-10); Glucose 129 mg/dL (74-106); SALICYLATE 5.8 mg/dL (2-20); SGOT/AST 58 U/L (14-36); SGPT/ALT 38 U/L (0-35); Total Protein 7.5 g/dL (6.3-8.2)
[2022-08-16 22:30] LABS: CHLORIDE 79 mmol/L (98-107); Potassium 2.6 mmol/L (3.5-5.1); SODIUM 117 mmol/L (137-145)
[2022-08-16] MEDS ORDERED: Sodium Chloride 0.9% 1000 ML 1,000 ML IV STA (22:40)
[2022-08-16] MEDS ORDERED: Ativan 2 MG/1 ML VIAL IV ONE (22:41)
--- NOTE | 2022-08-16 22:42 | ERPHSYRPT ---
- History of Present Illness Time Seen by Provider: 08/16/22 21:30 Source: patient Exam Limitations: no limitations Patient Subjective Stated Complaint: pt states she is anxious today. family called 911 due to pt vomiting and diarrhea, paulily states that she has taken all or her painpills that were prescibed yesterday (12 pills of norco 5/325). pt states she was seen yesterday in ER and given this script for norco. pt states she stil has pain in her neck from a fall down the stairs one year ago. pt states she also drank three beers today and following that she began to vomit. Triage Nursing Assessment: pt is pale and diaphoretic, appears anxious. states she has some pain she rates as 8/10 in her neck. pt bp 185/98. sats 97 on room air, pulse 100 at rest. Physician History: Patient is 62-year-old female presents to emergency department via EMS for evaluation of nausea and vomiting. Patient was in our ED yesterday. Patient was evaluated and treated for neck pain. Patient was discharged with 12 [place] 03/15/2025's. Patient states that she took [place]/12 pills in the past 24 hours due to pain. Patient went on a slight drinking binge. Patient states she had only 3 beers but later began to vomit. Family became concerned and called 911. Patient states she has been experiencing nausea vomiting and diarrhea. Symptoms mild to moderate in intensity. No specific worsening or improving factors. Patient voices no other complaints or concerns at this time. Portions of this note were created with voice recognition technology. There may be grammatical, spelling, punctuation or sound alike errors Timing/Duration: today Severity: moderate Modifying Factors: Improves With: nothing Associated Symptoms: nausea, vomiting Allergies/Adverse Reactions: No Known Drug Allergies Allergy (Verified 04/10/22 10:42) Home Medications: Fluoxetine HCl 10 mg [Prozac 10 mg] 40 mg PO DAILY 05/30/14 [History] Donepezil HCl [Aricept] 5 mg PO DAILY 08/15/22 [History] Levothyroxine Sodium 50 Mcg [Synthroid 50 Mcg] 50 mcg PO DAILY 08/15/22 [History] ALPRAZolam [Xanax 0.25 mg] 0.5 mg PO BID 08/16/22 [History] Amlodipine Besylate 5 mg PO DAILY 08/16/22 [History] Cetirizine HCl [Allergy Relief] 10 mg PO DAILY 08/16/22 [History] Estradiol 1 mg [Estrace 1 mg] 1 mg PO DAILY 08/16/22 [History] Potassium Chloride [Klor-Con M10] 10 meq PO DAILY 08/16/22 [History] Pravastatin Sodium 40 mg PO DAILY 08/16/22 [History] Hx Tetanus, Diphtheria Vaccination/Date Given: No Hx Influenza Vaccination/Date Given: No Hx Pneumococcal Vaccination/Date Given: No Travel Risk - International Travel Have you traveled outside of the country in past 3 weeks: No - Coronavirus Screening Are you exhibiting any of the following symptoms?: No Close contact with a COVID-19 positive Pt in past 14-21 Days: No - Vaccine Status Have you recieved a Covid-19 vaccination: Yes Learning Facilitator: Unknown - Vaccination Dates Dates if Unknown: unknown - Review of Systems Constitutional: No Symptoms, No Fever, No Chills Eyes: No Symptoms Ears, Nose, & Throat: No Symptoms Respiratory: No Symptoms, No Cough, No Dyspnea Cardiac: No Symptoms, No Chest Pain, No Edema, No Syncope Abdominal/Gastrointestinal: No Symptoms, No Abdominal Pain, No Nausea, No Vomiting, No Diarrhea Genitourinary Symptoms: No Symptoms, No Dysuria Musculoskeletal: No Symptoms, No Back Pain, No Neck Pain Skin: No Symptoms, No Rash Neurological: No Symptoms, No Dizziness, No Focal Weakness, No Sensory Changes Psychological: No Symptoms Endocrine: No Symptoms Hematologic/Lymphatic: No Symptoms Immunological/Allergic: No Symptoms All Other Systems: Reviewed and Negative - Past Medical History Pertinent Past Medical History: Yes Psycho-Social History: Anxiety, Depression - Past Surgical History Past Surgical History: No - Social History Smoking Status: Current every day smoker Exposure to second hand smoke: No Drug Use: none Patient Lives Alone: No - Nursing Vital Signs Nursing Vital Signs: Initial Vital Signs Temperature 97.0 F 08/16/22 21:24 Pulse Rate 107 H 08/16/22 21:24 Respiratory Rate 22 08/16/22 21:24 Blood Pressure 185/98 08/16/22 21:24 O2 Sat by Pulse Oximetry 95 08/16/22 21:24 Pain Scale Pain Intensity 4 - Physical Exam General Appearance: no apparent distress, alert Eye Exam: PERRL/EOMI, eyes nml inspection Ears, Nose, Throat Exam: normal ENT inspection, TMs normal, pharynx normal, moist mucous membranes Neck Exam: normal inspection, non-tender, supple, full range of motion Respiratory Exam: normal breath sounds, lungs clear, airway intact, No chest tenderness, No respiratory distress Cardiovascular Exam: regular rate/rhythm, normal heart sounds, normal peripheral pulses Gastrointestinal/Abdomen Exam: soft, normal bowel sounds, No tenderness, No mass Back Exam: normal inspection, normal range of motion, No CVA tenderness, No vertebral tenderness Extremity Exam: normal inspection, normal range of motion, pelvis stable Neurologic Exam: alert, oriented x 3, cooperative, normal mood/affect, sensation nml, No motor deficits Skin Exam: normal color, warm, dry, No rash Lymphatic Exam: No adenopathy SpO2 Interpretation: normal SpO2: 95 O2 Delivery: Room Air - Course Nursing assessment & vital signs reviewed: Yes EKG Interpreted by Me: RATE (94), Sinus Rhythm, NORMAL AXIS, NORMAL INTERVALS Ordered Tests: Active Orders 24 hr Category Date Time Status Sanitary [place] Machine Tender STAT Care 08/16/22 21:39 Active IV Insertion STAT Care 08/16/22 21:38 Active IV Insertion-2nd Peripheral STAT Care 08/16/22 22:46 Active Telemetry q4h Care 08/16/22 22:40 Active ACETAMINOPHEN Stat Lab 08/16/22 21:50 Completed CBC W DIFF Stat Lab 08/16/22 21:50 Completed CMP Stat Lab 08/16/22 21:50 Completed CMP Stat Lab 08/17/22 00:44 Completed ETHYL ALCOHOL Stat Lab 08/16/22 21:50 Completed Manual Differential NC Stat Lab 08/16/22 21:50 Completed SALICYLATE Stat Lab 08/16/22 21:50 Completed TROPONIN Q4H Lab 08/16/22 21:50 Completed TROPONIN Q4H Lab 08/17/22 00:44 Completed TROPONIN Q4H Lab 08/17/22 05:45 Ordered UA W/RFX CULTURE Stat Lab 08/17/22 00:19 Completed Urine Triage Profile Stat Lab 08/17/22 00:19 Completed Transfer Order Routine Transfer 08/17/22 Ordered Medication Summary Generic Name Dose Route Start Last Admin Trade Name Freq PRN Reason Stop Dose Admin Potassium Chloride 20 meq in 100 mls @ 50 mls/hr 08/16/22 22:45 08/17/22 0 0:51 Potassium Chloride 20 Meq In Water 100ml IV 08/17/22 02:44 50 mls/hr Q2H DG Administration Magnesium Sulfate/Dextrose 100 mls @ 100 mls/hr 08/16/22 22:45 08/16/22 23:53 Magnesium 1 Gm / 100 Ml D5w IV 08/17/22 00:44 100 mls/hr Q1H DG Administration Discontinued Medications Generic Name Dose Route Start Last Admin Trade Name Lucretia PRN Reason Stop Dose Admin Sodium Chloride 1,000 mls @ 999 mls/hr 08/16/22 22:40 08/16/22 22:45 Sodium Chloride 0.9% 1000 Ml IV 08/16/22 23:40 999 mls/hr .Q1H1M STA Administration Sodium Chloride Confirm 08/16/22 22:43 Sodium Chloride 0.9% 1000 Ml Administered 08/16/22 22:44 Dose 1,000 mls @ ud .ROUTE .STK-MED ONE Sodium Chloride Confirm 08/17/22 00:41 Sodium Chloride 0.9% 500 Ml Administered 08/17/22 00:42 Dose 500 mls @ ud IV .STK-MED ONE Lorazepam 1 mg 08/16/22 22:41 08/16/22 22:51 Lorazepam 2 Mg/1 Ml 2 Mg Vial IV 08/16/22 22:42 1 mg STAT ONE Administration Lorazepam Confirm 08/16/22 22:48 Lorazepam 2 Mg/1 Ml 2 Mg Vial Administered 08/16/22 22:49 Dose 2 mg .ROUTE .STK-MED ONE Lab/Rad Data: Laboratory Result Diagrams 08/16/22 21:50 08/17/22 00:44 Laboratory Results 08/17/22 08/17/22 08/17/22 Range/Units 00:44 00:44 00:19 WBC (4.0-10.5) x10^3/uL RBC (4.1-5.4) x10^6/uL Hgb (12.0-16.0) g/dL Hct (35-47) % MCV (78-100) fL MCH (26-32) pg MCHC (32-36) g/dL RDW (11.5-14.0) % Plt Count (150-450) x10^3/uL MPV (7.5-11.0) fL Segmented Neutrophils (36.0-66.0) % Band Neutrophils (0.0-2.0) % Lymphocytes (Manual) (24-44) % Monocytes (Manual) (0.0-12.0) % Hypochromia Platelet Estimate (NORMAL) RBC Morphology Polychromasia Sodium 117 L* (137-145) mmol/L Potassium 2.9 L* (3.5-5.1) mmol/L Chloride 83 L (98-107) mmol/L Carbon Dioxide 26 (22-30) mmol/L Anion Gap 10.7 (5-15) MEQ/L BUN 9 (7-17) mg/dL Creatinine 0.44 L (0.52-1.04) mg/dL Estimated GFR > 60.0 ML/MIN Glucose 149 H (74-106) mg/dL Calcium 7.9 L (8.4-10.2) mg/dL Total Bilirubin 0.50 (0.2-1.3) mg/dL AST 50 H (14-36) U/L ALT 34 (0-35) U/L Alkaline Phosphatase 233 H (38-126) U/L Troponin I < 0.012 (0.000-0.034) ng/mL Serum Total Protein 6.5 (6.3-8.2) g/dL Albumin 3.6 (3.5-5.0) g/dL Urinalys Dipstick Clnc MAIN LAB Urine Color YELLOW (YELLOW) Urine Appearance CLEAR (CLEAR) Urine pH 6.5 (5-6) Ur Specific [place] 1.015 (1.005-1.025) POC Urine Protein Conf NEGATIVE (Negative) Urine Ketones SMALL-15 (NEGATIVE) Urine Nitrite NEGATIVE (NEGATIVE) Urine Bilirubin NEGATIVE (NEGATIVE) Urine Urobilinogen 0.2 (0-1) mg/dL Urine Leukocytes NEGATIVE (NEGATIVE) Urine WBC (Auto) NONE (0-5) /HPF Urine RBC (Auto) NONE (0-2) /HPF U Hyaline Cast (Auto) 3-5 (0-2) /LPF U Epithel Cells (Auto) RARE (FEW) /HPF Urine Bacteria (Auto) NONE (NEGATIVE) /HPF Urine RBC TRACE-INTACT (0-5) Jorge L/ul Urine Mucus (Auto) SLIGHT (NEGATIVE) /HPF Ur Culture Indicated? NO Urine Glucose NEGATIVE (NEGATIVE) mg/dL Salicylates (2-20) mg/dL Urine Opiates Level (NEGATIVE) Ur Methadone (NEGATIVE) Acetaminophen (10-30) ug/ml Urine Barbiturates (NEGATIVE) Ur Phencyclidine (PCP) (NEGATIVE) Urine Amphetamine (NEGATIVE) U Benzodiazepine Level (NEGATIVE) Urine Cocaine (NEGATIVE) Urine Marijuana (THC) (NEGATIVE) Ethyl Alcohol (0-10) mg/dL Influenza Type A Ag (NEGATIVE) Influenza Type B Ag (NEGATIVE) RSV (PCR) (Negative) SARS-CoV-2 (PCR) (NEGATIVE) 08/17/22 08/16/22 08/16/22 Range/Units 00:19 22:50 21:50 WBC (4.0-10.5) x10^3/uL RBC (4.1-5.4) x10^6/uL Hgb (12.0-16.0) g/dL Hct (35-47) % MCV (78-100) fL MCH (26-32) pg MCHC (32-36) g/dL RDW (11.5-14.0) % Plt Count (150-450) x10^3/uL MPV (7.5-11.0) fL Segmented Neutrophils (36.0-66.0) % Band Neutrophils (0.0-2.0) % Lymphocytes (Manual) (24-44) % Monocytes (Manual) (0.0-12.0) % Hypochromia Platelet Estimate (NORMAL) RBC Morphology Polychromasia Sodium (137-145) mmol/L Potassium (3.5-5.1) mmol/L Chloride (98-107) mmol/L Carbon Dioxide (22-30) mmol/L Anion Gap (5-15) MEQ/L BUN (7-17) mg/dL Creatinine (0.52-1.04) mg/dL Estimated GFR ML/MIN Glucose (74-106) mg/dL Calcium (8.4-10.2) mg/dL Total Bilirubin (0.2-1.3) mg/dL AST (14-36) U/L ALT (0-35) U/L Alkaline Phosphatase (38-126) U/L Troponin I < 0.012 (0.000-0.034) ng/mL Serum Total Protein (6.3-8.2) g/dL Albumin (3.5-5.0) g/dL Urinalys Dipstick Clnc Urine Color (YELLOW) Urine Appearance (CLEAR) Urine pH (5-6) Ur Specific [place] (1.005-1.025) POC Urine Protein Conf (Negative) Urine Ketones (NEGATIVE) Urine Nitrite (NEGATIVE) Urine Bilirubin (NEGATIVE) Urine Urobilinogen (0-1) mg/dL Urine Leukocytes (NEGATIVE) Urine WBC (Auto) (0-5) /HPF Urine RBC (Auto) (0-2) /HPF U Hyaline Cast (Auto) (0-2) /LPF U Epithel Cells (Auto) (FEW) /HPF Urine Bacteria (Auto) (NEGATIVE) /HPF Urine RBC (0-5) Jorge L/ul Urine Mucus (Auto) (NEGATIVE) /HPF Ur Culture Indicated? Urine Glucose (NEGATIVE) mg/dL Salicylates (2-20) mg/dL Urine Opiates Level POSITIVE (NEGATIVE) Ur Methadone NEGATIVE (NEGATIVE) Acetaminophen (10-30) ug/ml Urine Barbiturates NEGATIVE (NEGATIVE) Ur Phencyclidine (PCP) NEGATIVE (NEGATIVE) Urine Amphetamine NEGATIVE (NEGATIVE) U Benzodiazepine Level NEGATIVE (NEGATIVE) Urine Cocaine NEGATIVE (NEGATIVE) Urine Marijuana (THC) NEGATIVE (NEGATIVE) Ethyl Alcohol (0-10) mg/dL Influenza Type A Ag NEGATIVE (NEGATIVE) Influenza Type B Ag NEGATIVE (NEGATIVE) RSV (PCR) NEGATIVE (Negative) SARS-CoV-2 (PCR) NEGATIVE (NEGATIVE) 08/16/22 08/16/22 Range/Units 21:50 21:50 WBC 12.0 H (4.0-10.5) x10^3/uL RBC 4.36 (4.1-5.4) x10^6/uL Hgb 13.2 (12.0-16.0) g/dL Hct 37.6 (35-47) % MCV 86.2 (78-100) fL MCH 30.3 (26-32) pg MCHC 35.1 (32-36) g/dL RDW 11.9 (11.5-14.0) % Plt Count 326 (150-450) x10^3/uL MPV 9.5 (7.5-11.0) fL Segmented Neutrophils 78 H (36.0-66.0) % Band Neutrophils 1 (0.0-2.0) % Lymphocytes (Manual) 7 L (24-44) % Monocytes (Manual) 14 H (0.0-12.0) % Hypochromia 1+ Platelet Estimate NORMAL (NORMAL) RBC Morphology ABNORMAL Polychromasia 1+ Sodium 117 L* D (137-145) mmol/L Potassium 2.6 L* D (3.5-5.1) mmol/L Chloride 79 L D (98-107) mmol/L Carbon Dioxide 23 (22-30) mmol/L Anion Gap 17.5 H (5-15) MEQ/L BUN 12 (7-17) mg/dL Creatinine 0.47 L (0.52-1.04) mg/dL Estimated GFR > 60.0 ML/MIN Glucose 129 H (74-106) mg/dL Calcium 9.0 (8.4-10.2) mg/dL Total Bilirubin 0.50 (0.2-1.3) mg/dL AST 58 H (14-36) U/L ALT 38 H (0-35) U/L Alkaline Phosphatase 267 H (38-126) U/L Troponin I (0.000-0.034) ng/mL Serum Total Protein 7.5 (6.3-8.2) g/dL Albumin 4.2 (3.5-5.0) g/dL Urinalys Dipstick Clnc Urine Color (YELLOW) Urine Appearance (CLEAR) Urine pH (5-6) Ur Specific [place] (1.005-1.025) POC Urine Protein Conf (Negative) Urine Ketones (NEGATIVE) Urine Nitrite (NEGATIVE) Urine Bilirubin (NEGATIVE) Urine Urobilinogen (0-1) mg/dL Urine Leukocytes (NEGATIVE) Urine WBC (Auto) (0-5) /HPF Urine RBC (Auto) (0-2) /HPF U Hyaline Cast (Auto) (0-2) /LPF U Epithel Cells (Auto) (FEW) /HPF Urine Bacteria (Auto) (NEGATIVE) /HPF Urine RBC (0-5) Jorge L/ul Urine Mucus (Auto) (NEGATIVE) /HPF Ur Culture Indicated? Urine Glucose (NEGATIVE) mg/dL Salicylates 5.8 (2-20) mg/dL Urine Opiates Level (NEGATIVE) Ur Methadone (NEGATIVE) Acetaminophen < 10 L (10-30) ug/ml Urine Barbiturates (NEGATIVE) Ur Phencyclidine (PCP) (NEGATIVE) Urine Amphetamine (NEGATIVE) U Benzodiazepine Level (NEGATIVE) Urine Cocaine (NEGATIVE) Urine Marijuana (THC) (NEGATIVE) Ethyl Alcohol < 10 (0-10) mg/dL Influenza Type A Ag (NEGATIVE) Influenza Type B Ag (NEGATIVE) RSV (PCR) (Negative) SARS-CoV-2 (PCR) (NEGATIVE) - Progress Progress: improved Progress Note: Case discussed with Dr. Lambert who accepts admission to observation. 08/16/22 23:17 We will keep patient in the ER for an extended period of time. We will repeat labs to assure patient's electrolytes are normalizing acceptably prior to transfer to floor. Patient received treatment for her electrolyte abnormalities. There is some improvement in potassium. No improvement observed in her sodium. However patient is clinically improved. We will admit patient to the floor for further evaluation and treatment. Plan of care discussed with patient. She agrees to admission [facility] for further evaluation and treatment. Portions of this note were created with voice recognition technology. There may be grammatical, spelling, punctuation or sound alike errors 08/17/22 02:[address] Tigre Will see patient in: hospital (observation) Counseled pt/family regarding: lab results, diagnosis, rad results - Departure Departure Disposition: Observation Clinical Impression: Hyponatremia, Hypokalemia, Hypochloremia, Leukocytosis, Nausea & vomiting, Alcohol use Condition: Stable Critical Care Time: No Referrals: JAIMIE KANG [Primary Care Provider] - Follow up/PCP as directed
[2022-08-16] MEDS ORDERED: Magnesium 1 Gm / 100 Ml D5W*** 100 ML IV ONE ×2 (22:43→23:52)
[2022-08-16] MEDS ORDERED: Sodium Chloride 0.9% 1000 ML 1,000 ML ONE (22:43)
[2022-08-16] MEDS: Magnesium 1 Gm / 100 Ml D5W*** 100 ML IV SCH ×2 (22:45→23:53)
[2022-08-16] MEDS ORDERED: Ativan 2 MG/1 ML VIAL ONE (22:48)
[2022-08-16] MEDS: POTASSIUM CHLORIDE 20 mEq IN WATER 100ML 20 MEQ/100 ML BAG IV SCH (22:51)
[2022-08-16 23:24] LABS: BAND 1 % (0.0-2.0); Lymphocytes 7 % (24-44); Monocyte 14 % (0.0-12.0); Platelet Estimate NORMAL (NORMAL); Total Cells Counted 100
[2022-08-16 23:25] LABS: Hypochromia 1+; Polychromasia 1+
[2022-08-16 23:31] LABS: INFLUENZA A NEGATIVE (NEGATIVE); INFLUENZA B NEGATIVE (NEGATIVE); RESPIRATORY SYNCTIAL VIRUS NEGATIVE (Negative); SARS-CoV-2 Xpert Express NEGATIVE (NEGATIVE)
[2022-08-17 00:27] LABS: Appearance CLEAR (CLEAR); Bilirubin NEGATIVE (NEGATIVE); Dipstick done @ ? MAIN LAB; Glucose NEGATIVE (NEGATIVE); Ketones SMALL-15 (NEGATIVE); Nitrite NEGATIVE (NEGATIVE); Ph 6.5 (5-6); Protein,Urine Dip NEGATIVE (Negative); RBC TRACE-INTACT Ery/ul (0-5); Specific Gravity 1.015 (1.005-1.025); Urobilinogen 0.2 mg/dL (0-1)
[2022-08-17 00:34] LABS: Epithelial Cells RARE /HPF (FEW); Mucus SLIGHT /HPF (NEGATIVE)
[2022-08-17 00:37] LABS: Urine Cultured Indicated? NO
[2022-08-17 00:41] LABS: Amphetamine,Urine NEGATIVE (NEGATIVE); Barbiturate,Urine NEGATIVE (NEGATIVE); Benzodiazepine,Urine NEGATIVE (NEGATIVE); Opiate,Urine POSITIVE (NEGATIVE); PCP,Urine NEGATIVE (NEGATIVE)
[2022-08-17] MEDS ORDERED: Sodium Chloride 0.9% 500 ML 500 ML IV ONE (00:41)
[2022-08-17 00:44] LABS: THC,Urine NEGATIVE (NEGATIVE)
[2022-08-17 00:48] LABS: Cocaine,Urine NEGATIVE (NEGATIVE)
[2022-08-17] MEDS: POTASSIUM CHLORIDE 20 mEq IN WATER 100ML 20 MEQ/100 ML BAG IV SCH (00:51)
[2022-08-17 00:59] LABS: ALBUMIN 3.6 g/dL (3.5-5.0); ALKALINE PHOSPHATASE 233 U/L (38-126); ANION GAP 10.7 MEQ/L (5-15); BLOOD UREA NITROGEN 9 mg/dL (7-17); CHLORIDE 83 mmol/L (98-107); Calcium 7.9 mg/dL (8.4-10.2); Carbon Dioxide 26 mmol/L (22-30); Creatinine 1 0.44 mg/dL (0.52-1.04); EST GLOMERULAR FILTRATION RATE > 60.0 ML/MIN; Glucose 149 mg/dL (74-106); SGOT/AST 50 U/L (14-36); SGPT/ALT 34 U/L (0-35); Total Protein 6.5 g/dL (6.3-8.2)
[2022-08-17 01:05] LABS: SODIUM 117 mmol/L (137-145)
[2022-08-17 01:06] LABS: Potassium 2.9 mmol/L (3.5-5.1)
[2022-08-17 01:10] LABS: Methadone,Urine NEGATIVE (NEGATIVE)
[2022-08-17] MEDS ORDERED: TYLENOL 325 MG PO PRN (02:16)
[2022-08-17] MEDS ORDERED: MORPHINE SULFATE 2 MG INJ IV PRN (02:16)
[2022-08-17] MEDS: Zofran 4 MG/2 ML VIAL IV PRN ×2 (04:02→08:07)
[2022-08-17] MEDS: xanAX 0.5 MG PO PRN (04:02)
[2022-08-17] MEDS: Sodium Chloride 0.9% 1000 ML 1,000 ML IV SCH ×2 (05:23→15:57)
[2022-08-17 07:01] LABS: Absolute Neutrophil Ct (ANC) 10.32 x10^3/uL (1.4-6.9); Basophil (Absolute #) 0.02 x10^3/uL (0-0.4); Eosinophil % 0.6 % (0.00-5.0); Eosinophil (Absolute #) 0.08 x10^3/uL (0-0.5); Hematocrit 33.9 % (35-47); Hemoglobin 11.3 g/dL (12.0-16.0); Lymphocyte (Absolute #) 1.32 x10^3/uL (1.0-4.6); Lymphocytes % 10.1 % (24.0-44.0); Mean Cell Volume 88.5 fL (78-100); Mean Corpuscular Hemoglobin 29.5 pg (26-32); Mean Corpuscular Hgb Concent. 33.3 g/dL (32-36); Mean Platelet Volume 9.8 fL (7.5-11.0); Monocyte (Absolute #) 1.17 x10^3/uL (0.0-1.3); Neutrophil % 79.1 % (36.0-66.0); Platelet Count 282 x10^3/uL (150-450); Red Blood Count 3.83 x10^6/uL (4.1-5.4); Red Cell Distribution Width 12.4 % (11.5-14.0)
[2022-08-17 07:27] LABS: ALBUMIN 3.4 g/dL (3.5-5.0); ALKALINE PHOSPHATASE 210 U/L (38-126); ANION GAP 8.4 MEQ/L (5-15); BLOOD UREA NITROGEN 6 mg/dL (7-17); CHLORIDE 87 mmol/L (98-107); Calcium 7.8 mg/dL (8.4-10.2); Carbon Dioxide 27 mmol/L (22-30); Creatinine 1 0.44 mg/dL (0.52-1.04); EST GLOMERULAR FILTRATION RATE > 60.0 ML/MIN; Glucose 118 mg/dL (74-106); Potassium 3.1 mmol/L (3.5-5.1); SGOT/AST 45 U/L (14-36); SGPT/ALT 30 U/L (0-35); Total Protein 6.2 g/dL (6.3-8.2)
[2022-08-17 07:35] LABS: SODIUM 118 mmol/L (137-145)
[2022-08-17] MEDS ORDERED: Phenergan 25 MG INJ*** 25 MG in Sodium Chloride 0.9% 100 ML IV PRN (08:25)
[2022-08-17] MEDS ORDERED: Ativan 1 MG PO PRN ×2 (09:00→11:28)
[2022-08-17] MEDS ORDERED: FLUZONE QUAD 2022-2023 SYRINGE IM ONE (10:00)
[2022-08-17] MEDS ORDERED: Prozac 20 MG PO SCH (11:00)
[2022-08-17] MEDS ORDERED: Aricept 10 MG PO SCH (11:00)
[2022-08-17] MEDS: Ativan 2 MG/1 ML VIAL IV PRN ×4 (12:17→20:11)
[2022-08-17] MEDS: CLARITIN 10 MG PO SCH (14:30)
[2022-08-17] MEDS: Klor Con PO SCH (14:30)
[2022-08-17] MEDS: ESTRACE 1 MG PO SCH (14:30)
[2022-08-17] MEDS: SYNTHROID 50 MCG PO SCH (14:30)
--- NOTE | 2022-08-17 17:52 | PCM.HP ---
History of Present Illness - Chief Complaint Chief Complaint: Hyponatremia, hypokalemia History of Present Illness: is a 62 year old female pt of Dr. Chase admitted through ER with hyponatremia, hypokalemia, hypochloremia, leukocytosis, N/V, and EtOH use She was apparnetly anxious, had been to ER with neck pain a day before and took all 12 norco due to pain; then had 3 beers and vomited. She tells me she's had CP for a couple of days, substernal L lower chest, 04/22, constant, nonradiating, "like a pulled muscle," without palpitations, with diaphoresis. Has been vomiting x 3d, with nothing to eat. Drinks 3 beers/day, but hasn't had one in 3d. Equivocal on whether she's been having pain in the abdomen. Saw some light pink in her stool. She is still having dry heaves this morning, during our interview. - Review of Systems Respiratory: Short Of Breath (with anxiety) Cardiac: Chest Pain Abdominal/Gastrointestinal: Nausea, Vomiting Neurological: Other (neck pain) Psychological: Alcohol Abuse, Anxiety All Other Systems: Reviewed and Negative Medications & Allergies Home Medications: Home Medication List Fluoxetine HCl 10 mg [Prozac 10 mg] 40 mg PO DAILY 05/30/14 [History Confirmed 08/16/22] Donepezil HCl [Aricept] 5 mg PO DAILY 08/15/22 [History Confirmed 08/16/22] Levothyroxine Sodium 50 Mcg [Synthroid 50 Mcg] 50 mcg PO DAILY 08/15/22 [History Confirmed 08/16/22] ALPRAZolam [Xanax 0.25 mg] 0.5 mg PO BID PRN 08/16/22 [History Confirmed 03/04] Amlodipine Besylate 5 mg PO HS 08/16/22 [History Confirmed 08/17/22] Cetirizine HCl [Allergy Relief] 10 mg PO DAILY 08/16/22 [History Confirmed 08/16/22] Estradiol 1 mg [Estrace 1 mg] 1 mg PO DAILY 08/16/22 [History Confirmed 08/16/22] Potassium Chloride [Klor-Con M10] 10 meq PO DAILY 08/16/22 [History Confirmed 08/16/22] Pravastatin Sodium 40 mg PO HS 08/16/22 [History Confirmed 08/17/22] Allergies/Adverse Reactions: Allergies Allergy/AdvReac Type Severity Reaction Status Date / Time No Known Drug Allergies Allergy Verified 04/10/22 10:42 - Past Medical History Past Medical History: Yes Neurological History: Migraines ENT History: No Pertinent History Cardiac History: No Pertinent History Respiratory History: COPD Endocrine Medical History: No Pertinent History Musculoskelatal History: Arthritis GI Medical History: No Pertinent History History: No Pertinent History Pyscho-Social History: Anxiety, Depression Reproductive Disorders: No Pertinent History Comment: pt poor historian - Past Surgical History Past Surgical History: No - Social History Smoking Status: Former smoker Exposure to second hand smoke: No Alcohol: Daily Drug Use: none - Physical Exam Vital Signs: Vital Signs - 24 hr Temp Pulse Resp BP Pulse Ox 08/17/22 16:00 98.9 F 88 17 141/65 93 L 08/17/22 11:09 98.7 F 83 17 157/56 97 08/17/22 07:22 97.7 F 105 H 17 173/81 96 08/17/22 04:00 98.4 F 88 17 141/63 98 08/17/22 02:29 98.2 F 96 H 19 178/80 96 08/17/22 02:16 96 08/17/22 02:13 95 08/17/22 02:02 97 H 18 150/69 93 L 08/17/22 00:00 95 H 18 160/85 95 08/16/22 23:07 91 H 18 160/85 93 L 08/16/22 21:24 97.0 F 107 H 22 185/98 95 General Appearance: mild distress (when vomiting), alert Neurologic Exam: oriented x 3, cooperative Eye Exam: eyes nml inspection Ears, Nose, Throat Exam: moist mucous membranes Neck Exam: normal inspection, No lymphadenopathy, No thyromegaly Respiratory Exam: normal breath sounds, lungs clear, No crackles/rales, No rhonchi, No wheezing Cardiovascular Exam: regular rate/rhythm, normal heart sounds, No murmur Gastrointestinal/Abdomen Exam: soft, normal bowel sounds, No tenderness, No distention, No mass, No guarding, No rebound Back Exam: normal inspection, No rash Extremity Exam: normal inspection, No pedal edema, No swelling Skin Exam: normal color, warm, dry, No rash Results - Labs Lab/Micro Results: Lab Results-Last 24 Hours 08/16/22 08/16/22 08/16/22 Range/Units 21:50 21:50 21:50 WBC 12.0 H (4.0-10.5) x10^3/uL RBC 4.36 (4.1-5.4) x10^6/uL Hgb 13.2 (12.0-16.0) g/dL Hct 37.6 (35-47) % MCV 86.2 (78-100) fL MCH 30.3 (26-32) pg MCHC 35.1 (32-36) g/dL RDW 11.9 (11.5-14.0) % Plt Count 326 (150-450) x10^3/uL MPV 9.5 (7.5-11.0) fL Gran % (36.0-66.0) % Immature Gran % (Auto) (0.00-0.4) % Nucleat RBC Rel Count (0.00-0.1) % Eos # (Auto) (0-0.5) x10^3/uL Immature Gran # (Auto) (0.00-0.03) x10^3u/L Absolute Lymphs (auto) (1.0-4.6) x10^3/uL Absolute Monos (auto) (0.0-1.3) x10^3/uL Absolute Nucleated RBC (0.00-0.01) x10^3u/L Lymphocytes % (24.0-44.0) % Monocytes % (0.0-12.0) % Eosinophils % (0.00-5.0) % Basophils % (0.0-0.4) % Absolute Granulocytes (1.4-6.9) x10^3/uL Segmented Neutrophils 78 H (36.0-66.0) % Band Neutrophils 1 (0.0-2.0) % Lymphocytes (Manual) 7 L (24-44) % Monocytes (Manual) 14 H (0.0-12.0) % Basophils # (0-0.4) x10^3/uL Hypochromia 1+ Platelet Estimate NORMAL (NORMAL) RBC Morphology ABNORMAL Polychromasia 1+ Sodium 117 L* D (137-145) mmol/L Potassium 2.6 L* D (3.5-5.1) mmol/L Chloride 79 L D (98-107) mmol/L Carbon Dioxide 23 (22-30) mmol/L Anion Gap 17.5 H (5-15) MEQ/L BUN 12 (7-17) mg/dL Creatinine 0.47 L (0.52-1.04) mg/dL Estimated GFR > 60.0 ML/MIN Glucose 129 H (74-106) mg/dL Calcium 9.0 (8.4-10.2) mg/dL Magnesium (1.6-2.3) mg/dL Total Bilirubin 0.50 (0.2-1.3) mg/dL AST 58 H (14-36) U/L ALT 38 H (0-35) U/L Alkaline Phosphatase 267 H (38-126) U/L Troponin I < 0.012 (0.000-0.034) ng/mL Serum Total Protein 7.5 (6.3-8.2) g/dL Albumin 4.2 (3.5-5.0) g/dL Urinalys Dipstick Clnc Urine Color (YELLOW) Urine Appearance (CLEAR) Urine pH (5-6) Ur Specific Morton (1.005-1.025) POC Urine Protein Conf (Negative) Urine Ketones (NEGATIVE) Urine Nitrite (NEGATIVE) Urine Bilirubin (NEGATIVE) Urine Urobilinogen (0-1) mg/dL Urine Leukocytes (NEGATIVE) Urine WBC (Auto) (0-5) /HPF Urine RBC (Auto) (0-2) /HPF U Hyaline Cast (Auto) (0-2) /LPF U Epithel Cells (Auto) (FEW) /HPF Urine Bacteria (Auto) (NEGATIVE) /HPF Urine RBC (0-5) Jorge L/ul Urine Mucus (Auto) (NEGATIVE) /HPF Ur Culture Indicated? Urine Glucose (NEGATIVE) mg/dL Salicylates 5.8 (2-20) mg/dL Urine Opiates Level (NEGATIVE) Ur Methadone (NEGATIVE) Acetaminophen < 10 L (10-30) ug/ml Urine Barbiturates (NEGATIVE) Ur Phencyclidine (PCP) (NEGATIVE) Urine Amphetamine (NEGATIVE) U Benzodiazepine Level (NEGATIVE) Urine Cocaine (NEGATIVE) Urine Marijuana (THC) (NEGATIVE) Ethyl Alcohol < 10 (0-10) mg/dL Influenza Type A Ag (NEGATIVE) Influenza Type B Ag (NEGATIVE) RSV (PCR) (Negative) SARS-CoV-2 (PCR) (NEGATIVE) 08/16/22 08/17/22 08/17/22 Range/Units 22:50 00:19 00:19 WBC (4.0-10.5) x10^3/uL RBC (4.1-5.4) x10^6/uL Hgb (12.0-16.0) g/dL Hct (35-47) % MCV (78-100) fL MCH (26-32) pg MCHC (32-36) g/dL RDW (11.5-14.0) % Plt Count (150-450) x10^3/uL MPV (7.5-11.0) fL Gran % (36.0-66.0) % Immature Gran % (Auto) (0.00-0.4) % Nucleat RBC Rel Count (0.00-0.1) % Eos # (Auto) (0-0.5) x10^3/uL Immature Gran # (Auto) (0.00-0.03) x10^3u/L Absolute Lymphs (auto) (1.0-4.6) x10^3/uL Absolute Monos (auto) (0.0-1.3) x10^3/uL Absolute Nucleated RBC (0.00-0.01) x10^3u/L Lymphocytes % (24.0-44.0) % Monocytes % (0.0-12.0) % Eosinophils % (0.00-5.0) % Basophils % (0.0-0.4) % Absolute Granulocytes (1.4-6.9) x10^3/uL Segmented Neutrophils (36.0-66.0) % Band Neutrophils (0.0-2.0) % Lymphocytes (Manual) (24-44) % Monocytes (Manual) (0.0-12.0) % Basophils # (0-0.4) x10^3/uL Hypochromia Platelet Estimate (NORMAL) RBC Morphology Polychromasia Sodium (137-145) mmol/L Potassium (3.5-5.1) mmol/L Chloride (98-107) mmol/L Carbon Dioxide (22-30) mmol/L Anion Gap (5-15) MEQ/L BUN (7-17) mg/dL Creatinine (0.52-1.04) mg/dL Estimated GFR ML/MIN Glucose (74-106) mg/dL Calcium (8.4-10.2) mg/dL Magnesium (1.6-2.3) mg/dL Total Bilirubin (0.2-1.3) mg/dL AST (14-36) U/L ALT (0-35) U/L Alkaline Phosphatase (38-126) U/L Troponin I (0.000-0.034) ng/mL Serum Total Protein (6.3-8.2) g/dL Albumin (3.5-5.0) g/dL Urinalys Dipstick Clnc MAIN LAB Urine Color YELLOW (YELLOW) Urine Appearance CLEAR (CLEAR) Urine pH 6.5 (5-6) Ur Specific Morton 1.015 (1.005-1.025) POC Urine Protein Conf NEGATIVE (Negative) Urine Ketones SMALL-15 (NEGATIVE) Urine Nitrite NEGATIVE (NEGATIVE) Urine Bilirubin NEGATIVE (NEGATIVE) Urine Urobilinogen 0.2 (0-1) mg/dL Urine Leukocytes NEGATIVE (NEGATIVE) Urine WBC (Auto) NONE (0-5) /HPF Urine RBC (Auto) NONE (0-2) /HPF U Hyaline Cast (Auto) 3-5 (0-2) /LPF U Epithel Cells (Auto) RARE (FEW) /HPF Urine Bacteria (Auto) NONE (NEGATIVE) /HPF Urine RBC TRACE-INTACT (0-5) Jorge L/ul Urine Mucus (Auto) SLIGHT (NEGATIVE) /HPF Ur Culture Indicated? NO Urine Glucose NEGATIVE (NEGATIVE) mg/dL Salicylates (2-20) mg/dL Urine Opiates Level POSITIVE (NEGATIVE) Ur Methadone NEGATIVE (NEGATIVE) Acetaminophen (10-30) ug/ml Urine Barbiturates NEGATIVE (NEGATIVE) Ur Phencyclidine (PCP) NEGATIVE (NEGATIVE) Urine Amphetamine NEGATIVE (NEGATIVE) U Benzodiazepine Level NEGATIVE (NEGATIVE) Urine Cocaine NEGATIVE (NEGATIVE) Urine Marijuana (THC) NEGATIVE (NEGATIVE) Ethyl Alcohol (0-10) mg/dL Influenza Type A Ag NEGATIVE (NEGATIVE) Influenza Type B Ag NEGATIVE (NEGATIVE) RSV (PCR) NEGATIVE (Negative) SARS-CoV-2 (PCR) NEGATIVE (NEGATIVE) 1008/17/22 08/17/22 Range/Units 00:44 00:44 06:40 WBC (4.0-10.5) x10^3/uL RBC (4.1-5.4) x10^6/uL Hgb (12.0-16.0) g/dL Hct (35-47) % MCV (78-100) fL MCH (26-32) pg MCHC (32-36) g/dL RDW (11.5-14.0) % Plt Count (150-450) x10^3/uL MPV (7.5-11.0) fL Gran % (36.0-66.0) % Immature Gran % (Auto) (0.00-0.4) % Nucleat RBC Rel Count (0.00-0.1) % Eos # (Auto) (0-0.5) x10^3/uL Immature Gran # (Auto) (0.00-0.03) x10^3u/L Absolute Lymphs (auto) (1.0-4.6) x10^3/uL Absolute Monos (auto) (0.0-1.3) x10^3/uL Absolute Nucleated RBC (0.00-0.01) x10^3u/L Lymphocytes % (24.0-44.0) % Monocytes % (0.0-12.0) % Eosinophils % (0.00-5.0) % Basophils % (0.0-0.4) % Absolute Granulocytes (1.4-6.9) x10^3/uL Segmented Neutrophils (36.0-66.0) % Band Neutrophils (0.0-2.0) % Lymphocytes (Manual) (24-44) % Monocytes (Manual) (0.0-12.0) % Basophils # (0-0.4) x10^3/uL Hypochromia Platelet Estimate (NORMAL) RBC Morphology Polychromasia Sodium 117 L* (137-145) mmol/L Potassium 2.9 L* (3.5-5.1) mmol/L Chloride 83 L (98-107) mmol/L Carbon Dioxide 26 (22-30) mmol/L Anion Gap 10.7 (5-15) MEQ/L BUN 9 (7-17) mg/dL Creatinine 0.44 L (0.52-1.04) mg/dL Estimated GFR > 60.0 ML/MIN Glucose 149 H (74-106) mg/dL Calcium 7.9 L (8.4-10.2) mg/dL Magnesium (1.6-2.3) mg/dL Total Bilirubin 0.50 (0.2-1.3) mg/dL AST 50 H (14-36) U/L ALT 34 (0-35) U/L Alkaline Phosphatase 233 H (38-126) U/L Troponin I < 0.012 < 0.012 (0.000-0.034) ng/mL Serum Total Protein 6.5 (6.3-8.2) g/dL Albumin 3.6 (3.5-5.0) g/dL Urinalys Dipstick Clnc Urine Color (YELLOW) Urine Appearance (CLEAR) Urine pH (5-6) Ur Specific Morton (1.005-1.025) POC Urine Protein Conf (Negative) Urine Ketones (NEGATIVE) Urine Nitrite (NEGATIVE) Urine Bilirubin (NEGATIVE) Urine Urobilinogen (0-1) mg/dL Urine Leukocytes (NEGATIVE) Urine WBC (Auto) (0-5) /HPF Urine RBC (Auto) (0-2) /HPF U Hyaline Cast (Auto) (0-2) /LPF U Epithel Cells (Auto) (FEW) /HPF Urine Bacteria (Auto) (NEGATIVE) /HPF Urine RBC (0-5) Jorge L/ul Urine Mucus (Auto) (NEGATIVE) /HPF Ur Culture Indicated? Urine Glucose (NEGATIVE) mg/dL Salicylates (2-20) mg/dL Urine Opiates Level (NEGATIVE) Ur Methadone (NEGATIVE) Acetaminophen (10-30) ug/ml Urine Barbiturates (NEGATIVE) Ur Phencyclidine (PCP) (NEGATIVE) Urine Amphetamine (NEGATIVE) U Benzodiazepine Level (NEGATIVE) Urine Cocaine (NEGATIVE) Urine Marijuana (THC) (NEGATIVE) Ethyl Alcohol (0-10) mg/dL Influenza Type A Ag (NEGATIVE) Influenza Type B Ag (NEGATIVE) RSV (PCR) (Negative) SARS-CoV-2 (PCR) (NEGATIVE) 08/17/22 08/17/22 08/17/22 Range/Units 06:40 06:40 06:40 WBC 13.0 H (4.0-10.5) x10^3/uL RBC 3.83 L (4.1-5.4) x10^6/uL Hgb 11.3 L (12.0-16.0) g/dL Hct 33.9 L (35-47) % MCV 88.5 (78-100) fL MCH 29.5 (26-32) pg MCHC 33.3 (32-36) g/dL RDW 12.4 (11.5-14.0) % Plt Count 282 (150-450) x10^3/uL MPV 9.8 (7.5-11.0) fL Gran % 79.1 H (36.0-66.0) % Immature Gran % (Auto) 1.0 H (0.00-0.4) % Nucleat RBC Rel Count 0.0 (0.00-0.1) % Eos # (Auto) 0.08 (0-0.5) x10^3/uL Immature Gran # (Auto) 0.13 H (0.00-0.03) x10^3u/L Absolute Lymphs (auto) 1.32 (1.0-4.6) x10^3/uL Absolute Monos (auto) 1.17 (0.0-1.3) x10^3/uL Absolute Nucleated RBC 0.00 (0.00-0.01) x10^3u/L Lymphocytes % 10.1 L (24.0-44.0) % Monocytes % 9.0 (0.0-12.0) % Eosinophils % 0.6 (0.00-5.0) % Basophils % 0.2 (0.0-0.4) % Absolute Granulocytes 10.32 H (1.4-6.9) x10^3/uL Segmented Neutrophils (36.0-66.0) % Band Neutrophils (0.0-2.0) % Lymphocytes (Manual) (24-44) % Monocytes (Manual) (0.0-12.0) % Basophils # 0.02 (0-0.4) x10^3/uL Hypochromia Platelet Estimate (NORMAL) RBC Morphology Polychromasia Sodium 118 L* (137-145) mmol/L Potassium 3.1 L (3.5-5.1) mmol/L Chloride 87 L (98-107) mmol/L Carbon Dioxide 27 (22-30) mmol/L Anion Gap 8.4 (5-15) MEQ/L BUN 6 L (7-17) mg/dL Creatinine 0.44 L (0.52-1.04) mg/dL Estimated GFR > 60.0 ML/MIN Glucose 118 H (74-106) mg/dL Calcium 7.8 L (8.4-10.2) mg/dL Magnesium 2.5 H (1.6-2.3) mg/dL Total Bilirubin 0.50 (0.2-1.3) mg/dL AST 45 H (14-36) U/L ALT 30 (0-35) U/L Alkaline Phosphatase 210 H (38-126) U/L Troponin I (0.000-0.034) ng/mL Serum Total Protein 6.2 L (6.3-8.2) g/dL Albumin 3.4 L (3.5-5.0) g/dL Urinalys Dipstick Clnc Urine Color (YELLOW) Urine Appearance (CLEAR) Urine pH (5-6) Ur Specific Morton (1.005-1.025) POC Urine Protein Conf (Negative) Urine Ketones (NEGATIVE) Urine Nitrite (NEGATIVE) Urine Bilirubin (NEGATIVE) Urine Urobilinogen (0-1) mg/dL Urine Leukocytes (NEGATIVE) Urine WBC (Auto) (0-5) /HPF Urine RBC (Auto) (0-2) /HPF U Hyaline Cast (Auto) (0-2) /LPF U Epithel Cells (Auto) (FEW) /HPF Urine Bacteria (Auto) (NEGATIVE) /HPF Urine RBC (0-5) Jorge L/ul Urine Mucus (Auto) (NEGATIVE) /HPF Ur Culture Indicated? Urine Glucose (NEGATIVE) mg/dL Salicylates (2-20) mg/dL Urine Opiates Level (NEGATIVE) Ur Methadone (NEGATIVE) Acetaminophen (10-30) ug/ml Urine Barbiturates (NEGATIVE) Ur Phencyclidine (PCP) (NEGATIVE) Urine Amphetamine (NEGATIVE) U Benzodiazepine Level (NEGATIVE) Urine Cocaine (NEGATIVE) Urine Marijuana (THC) (NEGATIVE) Ethyl Alcohol (0-10) mg/dL Influenza Type A Ag (NEGATIVE) Influenza Type B Ag (NEGATIVE) RSV (PCR) (Negative) SARS-CoV-2 (PCR) (NEGATIVE) 10/05/22 Range/Units 09:06 WBC (4.0-10.5) x10^3/uL RBC (4.1-5.4) x10^6/uL Hgb (12.0-16.0) g/dL Hct (35-47) % MCV (78-100) fL MCH (26-32) pg MCHC (32-36) g/dL RDW (11.5-14.0) % Plt Count (150-450) x10^3/uL MPV (7.5-11.0) fL Gran % (36.0-66.0) % Immature Gran % (Auto) (0.00-0.4) % Nucleat RBC Rel Count (0.00-0.1) % Eos # (Auto) (0-0.5) x10^3/uL Immature Gran # (Auto) (0.00-0.03) x10^3u/L Absolute Lymphs (auto) (1.0-4.6) x10^3/uL Absolute Monos (auto) (0.0-1.3) x10^3/uL Absolute Nucleated RBC (0.00-0.01) x10^3u/L Lymphocytes % (24.0-44.0) % Monocytes % (0.0-12.0) % Eosinophils % (0.00-5.0) % Basophils % (0.0-0.4) % Absolute Granulocytes (1.4-6.9) x10^3/uL Segmented Neutrophils (36.0-66.0) % Band Neutrophils (0.0-2.0) % Lymphocytes (Manual) (24-44) % Monocytes (Manual) (0.0-12.0) % Basophils # (0-0.4) x10^3/uL Hypochromia Platelet Estimate (NORMAL) RBC Morphology Polychromasia Sodium (137-145) mmol/L Potassium (3.5-5.1) mmol/L Chloride (98-107) mmol/L Carbon Dioxide (22-30) mmol/L Anion Gap (5-15) MEQ/L BUN (7-17) mg/dL Creatinine (0.52-1.04) mg/dL Estimated GFR ML/MIN Glucose (74-106) mg/dL Calcium (8.4-10.2) mg/dL Magnesium (1.6-2.3) mg/dL Total Bilirubin (0.2-1.3) mg/dL AST (14-36) U/L ALT (0-35) U/L Alkaline Phosphatase (38-126) U/L Troponin I < 0.012 (0.000-0.034) ng/mL Serum Total Protein (6.3-8.2) g/dL Albumin (3.5-5.0) g/dL Urinalys Dipstick Clnc Urine Color (YELLOW) Urine Appearance (CLEAR) Urine pH (5-6) Ur Specific Morton (1.005-1.025) POC Urine Protein Conf (Negative) Urine Ketones (NEGATIVE) Urine Nitrite (NEGATIVE) Urine Bilirubin (NEGATIVE) Urine Urobilinogen (0-1) mg/dL Urine Leukocytes (NEGATIVE) Urine WBC (Auto) (0-5) /HPF Urine RBC (Auto) (0-2) /HPF U Hyaline Cast (Auto) (0-2) /LPF U Epithel Cells (Auto) (FEW) /HPF Urine Bacteria (Auto) (NEGATIVE) /HPF Urine RBC (0-5) Jorge L/ul Urine Mucus (Auto) (NEGATIVE) /HPF Ur Culture Indicated? Urine Glucose (NEGATIVE) mg/dL Salicylates (2-20) mg/dL Urine Opiates Level (NEGATIVE) Ur Methadone (NEGATIVE) Acetaminophen (10-30) ug/ml Urine Barbiturates (NEGATIVE) Ur Phencyclidine (PCP) (NEGATIVE) Urine Amphetamine (NEGATIVE) U Benzodiazepine Level (NEGATIVE) Urine Cocaine (NEGATIVE) Urine Marijuana (THC) (NEGATIVE) Ethyl Alcohol (0-10) mg/dL Influenza Type A Ag (NEGATIVE) Influenza Type B Ag (NEGATIVE) RSV (PCR) (Negative) SARS-CoV-2 (PCR) (NEGATIVE) Assessment/Plan (1) Hyponatremia Current Visit: Yes Status: Acute Assessment & Plan: Was 117 on admission. Could be somewhat chronic. I am stopping her SSRI. Will consider 3% saline infusion. Code(s): E87.1 - HYPO-OSMOLALITY AND HYPONATREMIA (2) Hypokalemia Current Visit: Yes Status: Acute Code(s): E87.6 - HYPOKALEMIA (3) Alcohol use Current Visit: Yes Status: Chronic Code(s): Z78.9 - OTHER SPECIFIED HEALTH STATUS (4) Chest pain Current Visit: Yes Status: Acute Qualifiers: Chest pain type: other chest pain Qualified Code(s): R07.89 - Other chest pain; R07.8 - Other chest pain Assessment & Plan: will do 1 troponin, has had pain for a week, I think more likely related to esophagitis possible, with EtOH history. EGD. Code(s): R07.9 - CHEST PAIN, UNSPECIFIED (5) Hypochloremia Current Visit: Yes Status: Acute Code(s): E87.8 - OTH DISORDERS OF ELECTROLYTE AND FLUID BALANCE, NEC (6) Leukocytosis Current Visit: Yes Status: Acute Qualifiers: Leukocytosis type: unspecified Qualified Code(s): D72.829 - Elevated white blood cell count, unspecified Code(s): D72.829 - ELEVATED WHITE BLOOD CELL COUNT, UNSPECIFIED (7) Nausea & vomiting Current Visit: Yes Status: Acute Assessment & Plan: CLD until feeling better. Code(s): R11.2 - NAUSEA WITH VOMITING, UNSPECIFIED
[2022-08-17 19:43] LABS: ANION GAP 5.8 MEQ/L (5-15); CHLORIDE 96 mmol/L (98-107); Calcium 7.7 mg/dL (8.4-10.2); Carbon Dioxide 28 mmol/L (22-30); Creatinine 1 0.45 mg/dL (0.52-1.04); EST GLOMERULAR FILTRATION RATE > 60.0 ML/MIN; Glucose 98 mg/dL (74-106); Potassium 3.1 mmol/L (3.5-5.1); SODIUM 127 mmol/L (137-145)
[2022-08-17 19:47] LABS: BLOOD UREA NITROGEN 2 mg/dL (7-17)
[2022-08-17] MEDS ORDERED: NON-FORMULARY ITEM (Pravastatin Sodium [Pravastatin Sodium] 40 MG Tablet) PO SCH (22:00)
[2022-08-17] MEDS ORDERED: ZOCOR 20MG PO SCH (22:00)
[2022-08-17] MEDS ORDERED: NORVASC 5 MG PO SCH (22:00)
[2022-08-18] MEDS: Sodium Chloride 0.9% 1000 ML 1,000 ML IV SCH ×2 (02:07→15:04)
[2022-08-18 04:48] LABS: Hematocrit 33.3 % (35-47); Mean Corpuscular Hemoglobin 30.7 pg (26-32); Mean Platelet Volume 9.9 fL (7.5-11.0); Platelet Count 282 x10^3/uL (150-450); Red Blood Count 3.58 x10^6/uL (4.1-5.4); Red Cell Distribution Width 12.8 % (11.5-14.0); White Blood Count 7.4 x10^3/uL (4.0-10.5)
[2022-08-18 05:03] LABS: ALKALINE PHOSPHATASE 165 U/L (38-126); ANION GAP 6.9 MEQ/L (5-15); CHLORIDE 99 mmol/L (98-107); Calcium 7.6 mg/dL (8.4-10.2); Carbon Dioxide 25 mmol/L (22-30); Creatinine 1 0.44 mg/dL (0.52-1.04); EST GLOMERULAR FILTRATION RATE > 60.0 ML/MIN; Glucose 97 mg/dL (74-106); Potassium 3.1 mmol/L (3.5-5.1); SGOT/AST 35 U/L (14-36); SGPT/ALT 27 U/L (0-35); SODIUM 128 mmol/L (137-145); Total Protein 5.8 g/dL (6.3-8.2)
[2022-08-18 05:08] LABS: BLOOD UREA NITROGEN 2 mg/dL (7-17)
[2022-08-18] MEDS: Ativan 2 MG/1 ML VIAL IV PRN ×2 (07:47→15:04)
[2022-08-18] MEDS ORDERED: Lactated Ringers 1,000 ML IV SCH (08:00)
--- NOTE | 2022-08-18 08:48 | PCM.NOTE ---
Date and Time: 08/18/22 0843 Subjective Assessment: Pt is restless this morning. Oriented to place, time is August and initially said 2023. Chest pain is improved this morning. Having a little nausea. Scheduled for EGD today, thank you. - Review of Systems Constitutional: No Fever Cardiac: Chest Pain Objective Exam General Appearance: no apparent distress, alert Neurologic Exam: cooperative Skin Exam: normal color, warm, dry, No rash Eye Exam: eyes nml inspection Ears, Nose, Throat Exam: moist mucous membranes Neck Exam: normal inspection Respiratory Exam: normal breath sounds, lungs clear, No crackles/rales, No rhonchi, No wheezing Cardiovascular Exam: regular rate/rhythm, normal heart sounds, No murmur Gastrointestinal/Abdomen Exam: soft, normal bowel sounds, No tenderness, No distention, No mass, No guarding, No rebound Extremity Exam: normal inspection, No pedal edema, No swelling Back Exam: normal inspection, No rash OBJECTIVE DATA Vital Signs: Vital Signs - 24 hr Temp Pulse Resp BP BP Pulse Ox 08/18/22 08:05 98.6 F 83 16 139/68 95 08/18/22 06:53 98.6 F 83 16 139/68 95 08/18/22 04:00 16 08/18/22 03:55 98.1 F 85 16 154/72 95 08/18/22 00:00 16 08/17/22 23:50 98.7 F 80 16 142/73 96 08/17/22 20:11 108 H 20 173/82 08/17/22 20:00 20 08/17/22 19:40 98.4 F 93 H 19 154/73 96 08/17/22 16:00 98.9 F 88 17 141/65 93 L 08/17/22 11:09 98.7 F 83 17 157/56 97 Pain Assessment - Last Documented Pain Intensity 0 Intake and Output: Intake & Output 08/15/22 08/16/22 08/17/22 08/18/22 11:59 11:59 11:59 11:59 Intake Total 573 4306 Output Total 4300 Balance 573 6 Weight 73.5 kg 73.5 kg Lab Results: Lab Results-Last 24 Hours 08/17/22 08/17/22 08/17/22 Range/Units 06:40 06:40 09:06 WBC 13.0 H (4.0-10.5) x10^3/uL RBC 3.83 L (4.1-5.4) x10^6/uL Hgb 11.3 L (12.0-16.0) g/dL Hct 33.9 L (35-47) % MCV 88.5 (78-100) fL MCH 29.5 (26-32) pg MCHC 33.3 (32-36) g/dL RDW 12.4 (11.5-14.0) % Plt Count 282 (150-450) x10^3/uL MPV 9.8 (7.5-11.0) fL Gran % 79.1 H (36.0-66.0) % Immature Gran % (Auto) 1.0 H (0.00-0.4) % Nucleat RBC Rel Count 0.0 (0.00-0.1) % Eos # (Auto) 0.08 (0-0.5) x10^3/uL Immature Gran # (Auto) 0.13 H (0.00-0.03) x10^3u/L Absolute Lymphs (auto) 1.32 (1.0-4.6) x10^3/uL Absolute Monos (auto) 1.17 (0.0-1.3) x10^3/uL Absolute Nucleated RBC 0.00 (0.00-0.01) x10^3u/L Lymphocytes % 10.1 L (24.0-44.0) % Monocytes % 9.0 (0.0-12.0) % Eosinophils % 0.6 (0.00-5.0) % Basophils % 0.2 (0.0-0.4) % Absolute Granulocytes 10.32 H (1.4-6.9) x10^3/uL Basophils # 0.02 (0-0.4) x10^3/uL Sodium (137-145) mmol/L Potassium (3.5-5.1) mmol/L Chloride (98-107) mmol/L Carbon Dioxide (22-30) mmol/L Anion Gap (5-15) MEQ/L BUN (7-17) mg/dL Creatinine (0.52-1.04) mg/dL Estimated GFR ML/MIN Glucose (74-106) mg/dL Calcium (8.4-10.2) mg/dL Magnesium 2.5 H (1.6-2.3) mg/dL Total Bilirubin (0.2-1.3) mg/dL AST (14-36) U/L ALT (0-35) U/L Alkaline Phosphatase (38-126) U/L Troponin I < 0.012 (0.000-0.034) ng/mL Serum Total Protein (6.3-8.2) g/dL Albumin (3.5-5.0) g/dL 08/17/22 08/18/22 08/18/22 Range/Units 19:25 04:41 04:41 WBC 7.4 (4.0-10.5) x10^3/uL RBC 3.58 L (4.1-5.4) x10^6/uL Hgb 11.0 L (12.0-16.0) g/dL Hct 33.3 L (35-47) % MCV 93.0 (78-100) fL MCH 30.7 (26-32) pg MCHC 33.0 (32-36) g/dL RDW 12.8 (11.5-14.0) % Plt Count 282 (150-450) x10^3/uL MPV 9.9 (7.5-11.0) fL Gran % (36.0-66.0) % Immature Gran % (Auto) (0.00-0.4) % Nucleat RBC Rel Count (0.00-0.1) % Eos # (Auto) (0-0.5) x10^3/uL Immature Gran # (Auto) (0.00-0.03) x10^3u/L Absolute Lymphs (auto) (1.0-4.6) x10^3/uL Absolute Monos (auto) (0.0-1.3) x10^3/uL Absolute Nucleated RBC (0.00-0.01) x10^3u/L Lymphocytes % (24.0-44.0) % Monocytes % (0.0-12.0) % Eosinophils % (0.00-5.0) % Basophils % (0.0-0.4) % Absolute Granulocytes (1.4-6.9) x10^3/uL Basophils # (0-0.4) x10^3/uL Sodium 127 L D 128 L (137-145) mmol/L Potassium 3.1 L 3.1 L (3.5-5.1) mmol/L Chloride 96 L 99 (98-107) mmol/L Carbon Dioxide 28 25 (22-30) mmol/L Anion Gap 5.8 6.9 (5-15) MEQ/L BUN 2 L 2 L (7-17) mg/dL Creatinine 0.45 L 0.44 L (0.52-1.04) mg/dL Estimated GFR > 60.0 > 60.0 ML/MIN Glucose 98 97 (74-106) mg/dL Calcium 7.7 L 7.6 L (8.4-10.2) mg/dL Magnesium (1.6-2.3) mg/dL Total Bilirubin 0.50 (0.2-1.3) mg/dL AST 35 (14-36) U/L ALT 27 (0-35) U/L Alkaline Phosphatase 165 H (38-126) U/L Troponin I (0.000-0.034) ng/mL Serum Total Protein 5.8 L (6.3-8.2) g/dL Albumin 3.0 L (3.5-5.0) g/dL Radiology Exams: Radiology Procedures Category Date Time Status HEAD W/WO CONTRAST [CT] Stat Exams 08/17/22 18:00 Taken Assessment/Plan (1) Hyponatremia Current Visit: Yes Status: Acute Assessment & Plan: improved from 117 initially to 128 this morning. I had stopped her SSRI, but I think she got yesterday's dose, so will continue that. She had been vomiting prior to admission. Code(s): E87.1 - HYPO-OSMOLALITY AND HYPONATREMIA (2) Hypokalemia Current Visit: Yes Status: Acute Assessment & Plan: improved, to 3.1 today. Code(s): E87.6 - HYPOKALEMIA (3) Alcohol use Current Visit: Yes Status: Chronic Assessment & Plan: on CIME protocol. Code(s): Z78.9 - OTHER SPECIFIED HEALTH STATUS (4) Chest pain Current Visit: Yes Status: Acute Qualifiers: Chest pain type: other chest pain Qualified Code(s): R07.89 - Other chest pain; R07.8 - Other chest pain Assessment & Plan: EGD today to r/o esophagitis. Code(s): R07.9 - CHEST PAIN, UNSPECIFIED (5) Hypochloremia Current Visit: Yes Status: Acute Code(s): E87.8 - OTH DISORDERS OF ELECTROLYTE AND FLUID BALANCE, NEC (6) Leukocytosis Current Visit: Yes Status: Resolved Qualifiers: Leukocytosis type: unspecified Qualified Code(s): D72.829 - Elevated white blood cell count, unspecified Code(s): D72.829 - ELEVATED WHITE BLOOD CELL COUNT, UNSPECIFIED (7) Nausea & vomiting Current Visit: Yes Status: Acute Qualifiers: Vomiting type: unspecified Qualified Code(s): R11.2 - Nausea with vomiting, unspecified Assessment & Plan: small amt nausea present, no more vomiting since yesterday. Only tolerated some fluids yesterday. Will see if can tolerate clears and advance diet as tolerated this afternoon. Code(s): R11.2 - NAUSEA WITH VOMITING, UNSPECIFIED
--- NOTE | 2022-08-18 08:50 | XRAY ---
Indication: Pain and dizziness. Low-sodium. Multiple contiguous axial images obtained through the head prior to and following 80 cc Isovue 370 contrast. Comparison: August 15, 2022 Again age-appropriate global atrophy. No acute intracranial hemorrhage, abnormal extra-axial fluid collection, or mass effect. Ziegler-white matter differentiation preserved. Postcontrast images are negative for abnormal enhancing intra or extra-axial mass. No thrombus in the venous sinuses. Fourth ventricle is midline without hydrocephalus. Bony calvarium intact. Visualized paranasal sinuses and mastoid air cells are clear. Impression: Negative CT head with and without contrast exam.
[2022-08-18] MEDS ORDERED: DIPRIVAN 200 MG/20 ML IV ONE (09:44)
[2022-08-18] MEDS ORDERED: Xylocaine-Mpf 2% 5 Ml Vial ONE (09:44)
--- NOTE | 2022-08-18 09:48 | PCM.CONS ---
History of Present Illness - Reason for Consult Chief Complaint: Hyponatremia, hypokalemia Requesting Provider: KAREN MARIA Consulting Provider: KESHA SMITH MD History of Present Illness: hx chart review and d/w pt 62yo female difficult to get a clear history but presents with profound electrolyte disturbance, persistent nausea, emesis, was having some loos stool. asked if she takes pain pills everyday and she says she takes "all kinds of stuff" every day. isn't sure if this lines up with withdrawal type symptoms. no emesis yesterday. didn't really take the prep. no lucy bleeding/blood. was having brown stools. no real abdominal pain. did have an egd with dilation several years ago. isnt having dysphagia recently. "[facility] History & Physical Patient Name: DELVIN ROBLES Date of : 1960 Patient Status: Observation Attending Provider: KAREN MARIA Date: 08/17/22 17:47 Initialization Date: 08/17/22 17:47 History of Present Illness - Chief Complaint Chief Complaint: Hyponatremia, hypokalemia History of Present Illness: is a 62 year old female pt of Dr. Chase admitted through ER with hyponatremia, hypokalemia, hypochloremia, leukocytosis, N/V, and EtOH use She was apparnetly anxious, had been to ER with neck pain a day before and took all 12 norco due to pain; then had 3 beers and vomited. She tells me she's had CP for a couple of days, substernal L lower chest, 6/10, constant, nonradiating, "like a pulled muscle," without palpitations, with diaphoresis. Has been vomiting x 3d, with nothing to eat. Drinks 3 beers/day, but hasn't had one in 3d. Equivocal on whether she's been having pain in the abdomen. Saw some light pink in her stool. She is still having dry heaves this morning, during our interview. - Review of Systems Respiratory: Short Of Breath (with anxiety) Cardiac: Chest Pain Abdominal/Gastrointestinal: Nausea, Vomiting Neurological: Other (neck pain) Psychological: Alcohol Abuse, Anxiety All Other Systems: Reviewed and Negative Medications & Allergies Home Medications: Home Medication List Fluoxetine HCl 10 mg [Prozac 10 mg] 40 mg PO DAILY 05/30/14 [History Confirmed 08/16/22] Donepezil HCl [Aricept] 5 mg PO DAILY 08/15/22 [History Confirmed 08/16/22] Levothyroxine Sodium 50 Mcg [Synthroid 50 Mcg] 50 mcg PO DAILY 08/15/22 [History Confirmed 08/16/22] ALPRAZolam [Xanax 0.25 mg] 0.5 mg PO BID PRN 08/16/22 [History Confirmed 08/16/22] Amlodipine Besylate 5 mg PO HS 08/16/22 [History Confirmed 08/17/22] Cetirizine HCl [Allergy Relief] 10 mg PO DAILY 08/16/22 [History Confirmed 08/16/22] Estradiol 1 mg [Estrace 1 mg] 1 mg PO DAILY 08/16/22 [History Confirmed 08/16/22] Potassium Chloride [Klor-Con M10] 10 meq PO DAILY 08/16/22 [History Confirmed 08/16/22] Pravastatin Sodium 40 mg PO HS 08/16/22 [History Confirmed 08/17/22] Allergies/Adverse Reactions: Allergies Allergy/AdvReac Type Severity Reaction Status Date / Time No Known Drug Allergies Allergy Verified 04/10/22 10:42 - Past Medical History Past Medical History: Yes Neurological History: Migraines ENT History: No Pertinent History Cardiac History: No Pertinent History Respiratory History: COPD Endocrine Medical History: No Pertinent History Musculoskelatal History: Arthritis GI Medical History: No Pertinent History History: No Pertinent History Pyscho-Social History: Anxiety, Depression Reproductive Disorders: No Pertinent History Comment: pt poor historian - Past Surgical History Past Surgical History: No - Social History Smoking Status: Former smoker Exposure to second hand smoke: No Alcohol: Daily Drug Use: none " Medications & Allergies Home Medications: Home Medication List Fluoxetine HCl 10 mg [Prozac 10 mg] 40 mg PO DAILY 05/30/14 [History Confirmed 08/16/22] Donepezil HCl [Aricept] 5 mg PO DAILY 08/15/22 [History Confirmed 08/16/22] Levothyroxine Sodium 50 Mcg [Synthroid 50 Mcg] 50 mcg PO DAILY 08/15/22 [History Confirmed 08/16/22] ALPRAZolam [Xanax 0.25 mg] 0.5 mg PO BID PRN 08/16/22 [History Confirmed 08/16/22] Amlodipine Besylate 5 mg PO HS 08/16/22 [History Confirmed 08/17/22] Cetirizine HCl [Allergy Relief] 10 mg PO DAILY 08/16/22 [History Confirmed 08/16/22] Estradiol 1 mg [Estrace 1 mg] 1 mg PO DAILY 08/16/22 [History Confirmed 08/16/22] Potassium Chloride [Klor-Con M10] 10 meq PO DAILY 08/16/22 [History Confirmed 08/16/22] Pravastatin Sodium 40 mg PO HS 08/16/22 [History Confirmed 08/17/22] Allergies/Adverse Reactions: Allergies Allergy/AdvReac Type Severity Reaction Status Date / Time No Known Drug Allergies Allergy Verified 04/10/22 10:42 - Past Medical History Past Medical History: Yes Neurological History: Migraines ENT History: No Pertinent History Cardiac History: No Pertinent History Respiratory History: COPD Endocrine Medical History: No Pertinent History Musculoskelatal History: Arthritis GI Medical History: No Pertinent History History: No Pertinent History Pyscho-Social History: Anxiety, Depression Reproductive Disorders: No Pertinent History Comment: pt poor historian - Past Surgical History Past Surgical History: No - Social History Smoking Status: Former smoker Exposure to second hand smoke: No Alcohol: Daily Drug Use: none - Physical Exam Vital Signs: Vital Signs - 24 hr Temp Pulse Resp BP BP Pulse Ox 08/18/22 08:05 98.6 F 83 16 139/68 95 08/18/22 06:53 98.6 F 83 16 139/68 95 08/18/22 04:00 16 08/18/22 03:55 98.1 F 85 16 154/72 95 08/18/22 00:00 16 08/17/22 23:50 98.7 F 80 16 142/73 96 08/17/22 20:11 108 H 20 173/82 08/17/22 20:00 20 08/17/22 19:40 98.4 F 93 H 19 154/73 96 08/17/22 16:00 98.9 F 88 17 141/65 93 L 08/17/22 11:09 98.7 F 83 17 157/56 97 General Appearance: no apparent distress Neurologic Exam: alert, oriented x 3, cooperative Eye Exam: eyes nml inspection, No scleral icterus Respiratory Exam: No respiratory distress Cardiovascular Exam: regular rate/rhythm Gastrointestinal/Abdomen Exam: soft, No tenderness, No distention Extremity Exam: normal inspection Results - Labs Lab/Micro Results: Lab Results-Last 24 Hours 08/17/22 08/17/22 08/18/22 Range/Units 09:06 19:25 04:41 WBC 7.4 (4.0-10.5) x10^3/uL RBC 3.58 L (4.1-5.4) x10^6/uL Hgb 11.0 L (12.0-16.0) g/dL Hct 33.3 L (35-47) % MCV 93.0 (78-100) fL MCH 30.7 (26-32) pg MCHC 33.0 (32-36) g/dL RDW 12.8 (11.5-14.0) % Plt Count 282 (150-450) x10^3/uL MPV 9.9 (7.5-11.0) fL Sodium 127 L D (137-145) mmol/L Potassium 3.1 L (3.5-5.1) mmol/L Chloride 96 L (98-107) mmol/L Carbon Dioxide 28 (22-30) mmol/L Anion Gap 5.8 (5-15) MEQ/L BUN 2 L (7-17) mg/dL Creatinine 0.45 L (0.52-1.04) mg/dL Estimated GFR > 60.0 ML/MIN Glucose 98 (74-106) mg/dL Calcium 7.7 L (8.4-10.2) mg/dL Total Bilirubin (0.2-1.3) mg/dL AST (14-36) U/L ALT (0-35) U/L Alkaline Phosphatase (38-126) U/L Troponin I < 0.012 (0.000-0.034) ng/mL Serum Total Protein (6.3-8.2) g/dL Albumin (3.5-5.0) g/dL 08/18/22 Range/Units 04:41 WBC (4.0-10.5) x10^3/uL RBC (4.1-5.4) x10^6/uL Hgb (12.0-16.0) g/dL Hct (35-47) % MCV (78-100) fL MCH (26-32) pg MCHC (32-36) g/dL RDW (11.5-14.0) % Plt Count (150-450) x10^3/uL MPV (7.5-11.0) fL Sodium 128 L (137-145) mmol/L Potassium 3.1 L (3.5-5.1) mmol/L Chloride 99 (98-107) mmol/L Carbon Dioxide 25 (22-30) mmol/L Anion Gap 6.9 (5-15) MEQ/L BUN 2 L (7-17) mg/dL Creatinine 0.44 L (0.52-1.04) mg/dL Estimated GFR > 60.0 ML/MIN Glucose 97 (74-106) mg/dL Calcium 7.6 L (8.4-10.2) mg/dL Total Bilirubin 0.50 (0.2-1.3) mg/dL AST 35 (14-36) U/L ALT 27 (0-35) U/L Alkaline Phosphatase 165 H (38-126) U/L Troponin I (0.000-0.034) ng/mL Serum Total Protein 5.8 L (6.3-8.2) g/dL Albumin 3.0 L (3.5-5.0) g/dL - Radiology Impressions Radiology Exams & Impressions: Radiology Procedures Category Date Time Status HEAD W/WO CONTRAST [CT] Stat Exams 08/17/22 18:00 Completed Assessment/Plan (1) Nausea & vomiting Current Visit: Yes Status: Acute Qualifiers: Vomiting type: unspecified Qualified Code(s): R11.2 - Nausea with vomiting, unspecified Assessment & Plan: 62yo female presents wqith electrolyte derangement, does have etoh dependence and narcotic pill drug abuse. having lots of persistent nausea/emesis and history of esophageal stricture with dilation. -will do an EGD today to evaluate the persistent nausea/emesis. if normal will trial diet. Code(s): R11.2 - NAUSEA WITH VOMITING, UNSPECIFIED
[2022-08-18] MEDS ORDERED: NON-FORMULARY ITEM (Cetirizine Hcl [Allergy Relief] 10 MG Capsule) PO SCH (10:00)
[2022-08-18] MEDS ORDERED: PROZAC 10 MG PO SCH (10:00)
[2022-08-18] MEDS ORDERED: NON-FORMULARY ITEM (Donepezil Hcl [Aricept] 5 MG Tablet) PO SCH (10:00)
[2022-08-18] MEDS ORDERED: PROVENTIL 2.5 MG/3 ML NEB IH ONE (10:09)
--- NOTE | 2022-08-18 10:10 | PCM.NOTE ---
Date and Time: 08/18/22 1009 Subjective Assessment: EGD with severe esophagitis. -treat empirically. discussed with pharmacy. IV fluconazole today. tomorrow will start liquid fluconazole 100mg po daily. would treat for 2-3 weeks. -protonix 40 BID> -f/u 2-4 weeks in office for path results. h pylori results. -diet as tolerated. OBJECTIVE DATA Vital Signs: Vital Signs - 24 hr Temp Pulse Resp BP BP Pulse Ox 08/18/22 08:05 98.6 F 83 16 139/68 95 08/18/22 06:53 98.6 F 83 16 139/68 95 08/18/22 04:00 16 08/18/22 03:55 98.1 F 85 16 154/72 95 08/18/22 00:00 16 08/17/22 23:50 98.7 F 80 16 142/73 96 08/17/22 20:11 108 H 20 173/82 08/17/22 20:00 20 08/17/22 19:40 98.4 F 93 H 19 154/73 96 08/17/22 16:00 98.9 F 88 17 141/65 93 L 08/17/22 11:09 98.7 F 83 17 157/56 97 Pain Assessment - Last Documented Pain Intensity 0 Intake and Output: Intake & Output 08/15/22 08/16/22 08/17/22 08/18/22 11:59 11:59 11:59 11:59 Intake Total 573 4306 Output Total 4300 Balance 573 6 Weight 73.5 kg 73.5 kg Lab Results: Lab Results-Last 24 Hours 08/17/22 08/18/22 08/18/22 Range/Units 19:25 04:41 04:41 WBC 7.4 (4.0-10.5) x10^3/uL RBC 3.58 L (4.1-5.4) x10^6/uL Hgb 11.0 L (12.0-16.0) g/dL Hct 33.3 L (35-47) % MCV 93.0 (78-100) fL MCH 30.7 (26-32) pg MCHC 33.0 (32-36) g/dL RDW 12.8 (11.5-14.0) % Plt Count 282 (150-450) x10^3/uL MPV 9.9 (7.5-11.0) fL Sodium 127 L D 128 L (137-145) mmol/L Potassium 3.1 L 3.1 L (3.5-5.1) mmol/L Chloride 96 L 99 (98-107) mmol/L Carbon Dioxide 28 25 (22-30) mmol/L Anion Gap 5.8 6.9 (5-15) MEQ/L BUN 2 L 2 L (7-17) mg/dL Creatinine 0.45 L 0.44 L (0.52-1.04) mg/dL Estimated GFR > 60.0 > 60.0 ML/MIN Glucose 98 97 (74-106) mg/dL Calcium 7.7 L 7.6 L (8.4-10.2) mg/dL Total Bilirubin 0.50 (0.2-1.3) mg/dL AST 35 (14-36) U/L ALT 27 (0-35) U/L Alkaline Phosphatase 165 H (38-126) U/L Serum Total Protein 5.8 L (6.3-8.2) g/dL Albumin 3.0 L (3.5-5.0) g/dL Radiology Exams: Radiology Procedures Category Date Time Status HEAD W/WO CONTRAST [CT] Stat Exams 08/17/22 18:00 Completed Multi-Disciplinary Progress Notes: Multi-Disciplinary Progress Notes 08/18/22 08:51 Case Management Note by Tala Orourke REVIEWED CHART- DO NOT ANTICIPATE ANY CHANGES IN DC PLAN AT THIS TIME Initialized on 08/18/22 08:51 - END OF NOTE Assessment/Plan (1) Nausea & vomiting Current Visit: Yes Status: Acute Qualifiers: Vomiting type: unspecified Qualified Code(s): R11.2 - Nausea with vomiting, unspecified Code(s): R11.2 - NAUSEA WITH VOMITING, UNSPECIFIED
[2022-08-18] MEDS: Klor Con PO SCH (10:32)
[2022-08-18] MEDS: SYNTHROID 50 MCG PO SCH (10:32)
[2022-08-18] MEDS: xanAX 0.5 MG PO PRN ×2 (10:33→18:28)
[2022-08-18] MEDS: Protonix 40MG Tablet PO SCH ×2 (10:33→18:28)
[2022-08-18] MEDS: CLARITIN 10 MG PO SCH (10:33)
[2022-08-18] MEDS: ESTRACE 1 MG PO SCH (10:33)
[2022-08-18] MEDS ORDERED: Diflucan/Saline 0.2G/100ML PREMIX*** 100 ML IV ONE (11:00)
--- NOTE | 2022-08-18 13:12 | OP ---
SURGERY DATE/TIME: 08/18/2022 0948 PREOPERATIVE DIAGNOSIS: Persistent nausea and vomiting. POSTOPERATIVE DIAGNOSES: 1) Persistent nausea and vomiting. 2) Severe esophagitis grade B. 3) Hiatal hernia. PROCEDURE: EGD. SURGEON: Anselmo Vinson M.D. ANESTHESIA: IV. CONDITION: Patient condition stable. COMPLICATIONS: None. SPECIMENS: 1) Antral biopsy for Helicobacter pylori. 2) Distal esophagus. HISTORY: The patient is a 62-year-old female that does present with profound electrolyte abnormality. She does have alcohol dependence as well as other drug abuse. She presents also with persistent nausea and vomiting. She has had a history of dysphagia with EGD with dilatation several years ago. She is not having particular dysphagia but is having trouble keeping things down. I discussed with the patient and she wants to proceed with an EGD. FINDINGS: Severe esophagitis grade B. DESCRIPTION OF PROCEDURE: The patient was brought to the endoscopy suite. She was routinely positioned and prepared. Time out performed. The gastroscope inserted through the mouth and advanced to the third portion of the duodenum. The duodenum is normal in appearance. The stomach has mild gastritis with erythema. A biopsy is taken of the antrum for Helicobacter pylori. Retroflexion does show a hiatal hernia moderate size. There is about a 3 cm hiatal hernia sliding-type. The scope is withdrawn into the esophagus. There is lucy esophagitis with fibrinous ulceration circumferentially in the distal one-third of the esophagus. A biopsy is taken for histology. The stomach is suctioned out. The scope is withdrawn. The patient is taken to recovery in stable condition. RECOMMENDATIONS: I recommend fluconazole 100 mg liquid p.o. daily for three weeks. I recommend Protonix 40 mg p.o. twice a day for one month. I recommend follow up in the office in two to four weeks. I recommend liquid diet and advance as tolerated to soft diet.
[2022-08-18 17:36] VITALS: BP 139/63; PULSE 76; O2SAT 97
--- NOTE | 2022-08-18 18:04 | PCM.DS ---
Discharge Summary Date of Admission: 08/17/22 02:13 Admitting Physician: KAREN MARIA Consults: Consults on Case 08/17/22 17:57 Consult Surgery ROUTINE Primary Care Provider: JAIMIE KANG Allergies Allergies No Known Drug Allergies Allergy (Verified 04/10/22 10:42) Hospital Summary - Hospital Course Hospital Course: Pt is 62 yo female with PMhx alcohol use who was admitted through ER with hyponatremia, hypokalemia, leukocytosis, nausea/vomiting, and alcohol use. She had taken 12 norco in the past 24 hours due to neck pain (had been in ER the previous day for that). When I spoke with her, she said she had been having chest pain, nausea, and vomiting for the past 3 days. She is a daily drinker, an d had to go on the CIWA protocol while here. Initial Na was 117; likely due to vomiting but I did stop her HCTZ. Will continue her SSRI, although that could cause hyponatremia as well. Today her Na is 128 and it should be checked again in 2 days. She had an EGD that showed severe esophagitis. She started eating and tolerated a clear diet; if she tolerates a bland diet, she will be discharged to home. Surgery wanted her on diflucan IV x 1 then 100mg po daily x 3 weeks, with protonix 40 mg po BID. She will f/u with Dr. Gaviria. - Vitals & Intake/Output Vital Signs: Vital Signs Temperature 98.1 F 08/18/22 16:00 Pulse Rate 76 08/18/22 16:00 Respiratory Rate 15 08/18/22 16:00 Blood Pressure 139/63 08/18/22 16:00 O2 Sat by Pulse Oximetry 97 08/18/22 16:00 Intake & Output: Intake & Output 08/16/22 08/17/22 08/18/22 08/19/22 11:59 11:59 11:59 11:59 Intake Total 573 4306 1870 Output Total 4800 750 Balance 573 -554 1120 Weight 73.5 kg 73.5 kg - Lab Result Diagrams: 08/18/22 04:41 08/18/22 04:41 Lab Results-Last 24 Hrs: Lab Results-Last 24 Hours 08/17/22 08/18/22 08/18/22 Range/Units 19:25 04:41 04:41 WBC 7.4 (4.0-10.5) x10^3/uL RBC 3.58 L (4.1-5.4) x10^6/uL Hgb 11.0 L (12.0-16.0) g/dL Hct 33.3 L (35-47) % MCV 93.0 (78-100) fL MCH 30.7 (26-32) pg MCHC 33.0 (32-36) g/dL RDW 12.8 (11.5-14.0) % Plt Count 282 (150-450) x10^3/uL MPV 9.9 (7.5-11.0) fL Sodium 127 L D 128 L (137-145) mmol/L Potassium 3.1 L 3.1 L (3.5-5.1) mmol/L Chloride 96 L 99 (98-107) mmol/L Carbon Dioxide 28 25 (22-30) mmol/L Anion Gap 5.8 6.9 (5-15) MEQ/L BUN 2 L 2 L (7-17) mg/dL Creatinine 0.45 L 0.44 L (0.52-1.04) mg/dL Estimated GFR > 60.0 > 60.0 ML/MIN Glucose 98 97 (74-106) mg/dL Calcium 7.7 L 7.6 L (8.4-10.2) mg/dL Total Bilirubin 0.50 (0.2-1.3) mg/dL AST 35 (14-36) U/L ALT 27 (0-35) U/L Alkaline Phosphatase 165 H (38-126) U/L Serum Total Protein 5.8 L (6.3-8.2) g/dL Albumin 3.0 L (3.5-5.0) g/dL - Radiology Exams Ordered Rad Exams-Entire Visit: Radiology Procedures Category Date Time Status HEAD W/WO CONTRAST [CT] Stat Exams 08/17/22 18:00 Completed - Procedures and Test Procedures and Tests throughout Hospitalization: Therapy Orders & Screens 08/18/22 10:11 Respiratory Therapy Assessment DAILY Comment: Diagnosis: Hyponatremia, hypokalemia Discharge Exam General Appearance: no apparent distress, alert, other (exam done this a.m.) Neurologic Exam: oriented x 3, cooperative Eye Exam: eyes nml inspection Ears, Nose, Throat Exam: moist mucous membranes Neck Exam: normal inspection Respiratory Exam: normal breath sounds, lungs clear, No crackles/rales, No rhonchi, No wheezing Cardiovascular Exam: regular rate/rhythm, normal heart sounds, No murmur Gastrointestinal/Abdomen Exam: soft, normal bowel sounds, No tenderness, No distention, No mass, No guarding, No rebound Back Exam: normal inspection, No rash Extremity Exam: normal inspection, No pedal edema, No swelling Skin Exam: normal color, warm, dry, No rash Final Diagnosis/Problem List - Final Discharge Diagnosis/Problem (1) Esophagitis Current Visit: Yes Status: Acute Assessment & Plan: per EGD, thank you. Diflucan IV today then 100mg po BID x 3 weeks. Protonix 40mg po daily. Stop drinking, with assistance of Dr. Gaviria, thank you. Stopped donepezil as it can cause stomach issues and interacts with diflucan. Code(s): K20.90 - ESOPHAGITIS, UNSPECIFIED WITHOUT BLEEDING (2) Hyponatremia Current Visit: Yes Status: Acute Assessment & Plan: much improved, 128 today. recheck in2 days. Stopped HCTZ. continuing SSRI, but consider stopping if not resolving. Code(s): E87.1 - HYPO-OSMOLALITY AND HYPONATREMIA (3) Hypokalemia Current Visit: Yes Status: Acute Assessment & Plan: 3.1 - should improve with improved po intake. recheck as well in2 d. Code(s): E87.6 - HYPOKALEMIA (4) Alcohol use Current Visit: Yes Status: Chronic Assessment & Plan: f/u with Dr. Gaviria, charles in light of severe esophagitis - needs to stop drinking. Code(s): Z78.9 - OTHER SPECIFIED HEALTH STATUS (5) Chest pain Current Visit: Yes Status: Acute Code(s): R07.9 - CHEST PAIN, UNSPECIFIED (6) Hypochloremia Current Visit: Yes Status: Acute Code(s): E87.8 - OTH DISORDERS OF ELECTROLYTE AND FLUID BALANCE, NEC (7) Leukocytosis Current Visit: Yes Status: Resolved Code(s): D72.829 - ELEVATED WHITE BLOOD CELL COUNT, UNSPECIFIED (8) Nausea & vomiting Current Visit: Yes Status: Resolved Code(s): R11.2 - NAUSEA WITH VOMITING, UNSPECIFIED - Discharge Disposition: Home, Self-Care Condition: Stable Prescriptions: New Fluconazole 100 mg PO DAILY 21 Days #2100 ml PANTOPRAZOLE 40 mg Tablet [Protonix 40MG Tablet] 40 mg PO BID #60 tablet Continue Fluoxetine HCl 10 mg [Prozac 10 mg] 40 mg PO DAILY Levothyroxine Sodium 50 Mcg [Synthroid 50 Mcg] 50 mcg PO DAILY ALPRAZolam [Xanax 0.25 mg] 0.5 mg PO BID PRN PRN Reason: Anxiety/Agitation Estradiol 1 mg [Estrace 1 mg] 1 mg PO DAILY Cetirizine HCl [Allergy Relief] 10 mg PO DAILY Pravastatin Sodium 40 mg PO HS Amlodipine Besylate 5 mg PO HS Changed Potassium Chloride [Klor-Con M10] 20 meq PO DAILY 30 Days #30 tablet Discontinued Donepezil HCl [Aricept] 5 mg PO DAILY Instructions: Esophagitis, Hyponatremia (DC) Follow up with: JAIMIE KANG [Primary Care Provider] - (KEEP APPT SCHEDULED FOR TOMORROW) KESHA SMITH MD [ACTIVE STAFF] - Call for Appointment (2-4 WKS) Forms: Discharge Instructions
[2022-08-19] MEDS ORDERED: PHARMACY DOSING REQUEST MC SCH (10:00)
== END 2022-08-18 19:35 | disposition home or self-care (01) ==
LOC: ED 21:21 → MED SURG 08-17 02:13
PROVIDERS: ADMIT Family Medicine; ATTEND Family Medicine
DX: K20.90 Esophagitis, unspecified without bleeding (principal); E87.1 Hypo-osmolality and hyponatremia; E87.6 Hypokalemia; Z78.9 Other specified health status; R07.9 Chest pain, unspecified; E87.8 Other disorders of electrolyte and fluid balance, not elsewhere classified; D72.829 Elevated white blood cell count, unspecified; R11.2 Nausea with vomiting, unspecified; K44.9 Diaphragmatic hernia without obstruction or gangrene; F10.980 Alcohol use, unspecified with alcohol-induced anxiety disorder; Z79.899 Other long term (current) drug therapy; Z20.828 Contact with and (suspected) exposure to other viral communicable diseases
CPT/HCPCS: 0241U; 36000; 36415; 43235; 70470; 80048; 80053; 80307; 81015; 83735; 84484; 85025; 85027; 93041; 94640; 96365; 96366; 96368; 96374; 99285; G0008; G0480; 90686; 96375; 99140; J1450; J2060; J2405; J2550; J2704; J3475; J3480; J7609; A9270-GY

== ENCOUNTER 2022-08-24 12:39 | Emergency (ER) | payer OTHER ==
[2022-08-24] MEDS ORDERED: THIAMINE 200 MG/2 ML IV ONE (12:57)
[2022-08-24] MEDS ORDERED: Zofran 4 MG/2 ML VIAL IV ONE (12:57)
[2022-08-24] MEDS ORDERED: Sodium Chloride 0.9% 1000 ML 1,000 ML IV STA (12:57)
[2022-08-24] MEDS ORDERED: VALIUM 10 MG/2 ML SYRINGE IV ONE (12:57)
--- NOTE | 2022-08-24 13:20 | ERPHSYRPT ---
- History of Present Illness Time Seen by Provider: 08/24/22 12:44 Source: patient, EMS Exam Limitations: no limitations Patient Subjective Stated Complaint: Patient c/o N/V that started when she awoke this morning. She is unable to give the exact time, just states, "this morning." Triage Nursing Assessment: Patient arrived by ambulance. She is alert and oriented with some labored breaths noted. Patient dry heaving at times. Wheezing noted. Skin is moist. Patient is restless in the bed. Physician History: Patient here with vomiting, appearing uncomfortable. Patient states that she called EMS today because she was vomiting, felt very ill. Reviewing patient's history, she was recently discharged from the hospital for alcohol abuse, low sodium, low potassium. Patient complains of no chest pain. She is dry heaving and appears uncomfortable as I walk into the room. Patient states her last drink of alcohol was last night. Timing/Duration: gradual onset Severity: moderate Modifying Factors: Improves With: eating Associated Symptoms: nausea, vomiting Allergies/Adverse Reactions: No Known Drug Allergies Allergy (Verified 04/10/22 10:42) Home Medications: Fluoxetine HCl 10 mg [Prozac 10 mg] 40 mg PO DAILY 05/30/14 [History] Levothyroxine Sodium 50 Mcg [Synthroid 50 Mcg] 50 mcg PO DAILY 08/15/22 [History] ALPRAZolam [Xanax 0.25 mg] 0.5 mg PO BID PRN 08/16/22 [History] Amlodipine Besylate 5 mg PO HS 08/16/22 [History] Cetirizine HCl [Allergy Relief] 10 mg PO DAILY 08/16/22 [History] Estradiol 1 mg [Estrace 1 mg] 1 mg PO DAILY 08/16/22 [History] Pravastatin Sodium 40 mg PO HS 08/16/22 [History] Hx Tetanus, Diphtheria Vaccination/Date Given: Yes Hx Influenza Vaccination/Date Given: No Hx Pneumococcal Vaccination/Date Given: No Immunizations Up to Date: Yes Travel Risk - International Travel Have you traveled outside of the country in past 3 weeks: No - Coronavirus Screening Are you exhibiting any of the following symptoms?: Yes Symptoms: Vomiting/Diarrhea, Headaches/Body Aches/Fatigue Close contact with a COVID-19 positive Pt in past 14-21 Days: No - Vaccine Status Have you recieved a Covid-19 vaccination: Yes Online Project Manager: Unknown - Vaccination Dates Dates if Unknown: unknown - Review of Systems Constitutional: No Fever, No Chills Eyes: No Symptoms Ears, Nose, & Throat: No Symptoms Respiratory: Dyspnea, No Cough Cardiac: No Chest Pain, No Edema, No Syncope Abdominal/Gastrointestinal: Nausea, Vomiting, No Abdominal Pain, No Diarrhea Genitourinary Symptoms: No Dysuria Musculoskeletal: No Back Pain, No Neck Pain Skin: No Rash Neurological: No Dizziness, No Focal Weakness, No Sensory Changes Psychological: No Symptoms Endocrine: No Symptoms All Other Systems: Reviewed and Negative - Past Medical History Pertinent Past Medical History: Yes Neurological History: Migraines ENT History: No Pertinent History Cardiac History: No Pertinent History Respiratory History: COPD Endocrine Medical History: No Pertinent History Musculoskeletal History: Arthritis GI Medical History: No Pertinent History History: No Pertinent History Psycho-Social History: Anxiety, Depression Female Reproductive Disorders: No Pertinent History Other Medical History: pt poor historian - Past Surgical History Past Surgical History: No - Social History Smoking Status: Former smoker Exposure to second hand smoke: No Drug Use: none Patient Lives Alone: No - Nursing Vital Signs Nursing Vital Signs: Initial Vital Signs Temperature 98.6 F 08/24/22 12:46 Pulse Rate 100 H 08/24/22 12:46 Respiratory Rate 24 08/24/22 12:46 O2 Sat by Pulse Oximetry 97 08/24/22 12:46 Pain Scale Pain Intensity 9 - Physical Exam General Appearance: mild distress, alert Eye Exam: PERRL/EOMI, eyes nml inspection Ears, Nose, Throat Exam: normal ENT inspection, TMs normal, pharynx normal, moist mucous membranes Neck Exam: normal inspection, non-tender, supple, full range of motion Respiratory Exam: normal breath sounds, lungs clear, other (Tachypnea), No respiratory distress Cardiovascular Exam: regular rate/rhythm, normal heart sounds, normal peripheral pulses, other (Tachycardia) Gastrointestinal/Abdomen Exam: soft, normal bowel sounds, No tenderness, No mass Back Exam: normal inspection, normal range of motion, No CVA tenderness, No vertebral tenderness Extremity Exam: normal inspection, normal range of motion, pelvis stable Neurologic Exam: alert, oriented x 3, cooperative, normal mood/affect, nml cerebellar function, nml station & gait, sensation nml, No motor deficits Skin Exam: normal color, warm, dry, No rash Lymphatic Exam: No adenopathy SpO2: 97 - Course Nursing assessment & vital signs reviewed: Yes EKG Interpreted by Me: Sinus Rhythm Ordered Tests: Active Orders 24 hr Category Date Time Status EKG-ER Only STAT Care 08/24/22 12:57 Active IV Insertion STAT Care 08/24/22 12:57 Active ABDOMEN AND PELVIS W CONTRAST [CT] Stat Exams 08/24/22 14:03 Completed CHEST 1 VIEW (PORTABLE) Stat Exams 08/24/22 12:58 Completed CHEST WITH CONTRAST [CT] Stat Exams 08/24/22 14:02 Completed ACETAMINOPHEN Stat Lab 08/24/22 13:12 Completed CBC W DIFF Stat Lab 08/24/22 13:12 Completed CMP Stat Lab 08/24/22 13:12 Completed ETHYL ALCOHOL Stat Lab 08/24/22 13:12 Completed LIPASE Stat Lab 08/24/22 13:12 Completed MAGNESIUM Stat Lab 08/24/22 13:12 Completed PROTIME WITH INR Stat Lab 08/24/22 13:12 Completed SALICYLATE Stat Lab 08/24/22 13:12 Completed TROPONIN Q4H Lab 08/24/22 13:12 Completed TROPONIN Q4H Lab 08/24/22 17:00 Ordered TROPONIN Q4H Lab 08/24/22 21:00 Ordered UA W/RFX CULTURE Stat Lab 08/24/22 Completed Urine Triage Profile Stat Lab 08/24/22 13:12 Completed Medication Summary Discontinued Medications Generic Name Dose Route Start Last Admin Trade Name Lucretia PRN Reason Stop Dose Admin Diazepam 5 mg 08/24/22 12:57 08/24/22 13:33 Diazepam 10 Mg/2 Ml Disp.Syringe IV 08/24/22 12:58 5 mg STAT ONE Administration Diazepam Confirm 08/24/22 13:25 Diazepam 10 Mg/2 Ml Disp.Syringe Administered 08/24/22 13:26 Dose 10 mg .ROUTE .STK-MED ONE Diphenhydramine HCl 25 mg 08/24/22 14:04 08/24/22 14:13 Diphenhydramine Hcl 50 Mg/Ml Vial IV 08/24/22 14:05 25 mg STAT ONE Administration Diphenhydramine HCl Confirm 08/24/22 14:11 Diphenhydramine Hcl 50 Mg/Ml Vial Administered 08/24/22 14:12 Dose 50 mg .ROUTE .STK-MED ONE Droperidol 1.25 mg 08/24/22 14:04 08/24/22 14:18 Droperidol 5 Mg/2 Ml Vial IV 08/24/22 14:05 1.25 mg STAT ONE Administration Droperidol Confirm 08/24/22 14:11 Droperidol 5 Mg/2 Ml Vial Administered 08/24/22 14:12 Dose 5 mg .ROUTE .STK-MED ONE Hydromorphone HCl 1 mg 08/24/22 14:04 08/24/22 14:15 Hydromorphone 1 Mg/1ml Inj 1 Mg/Ml Syringe IV 08/24/22 14:05 1 mg STAT ONE Administration Hydromorphone HCl Confirm 08/24/22 14:11 Hydromorphone 1 Mg/1ml Inj 1 Mg/Ml Syringe Administered 08/24/22 14:12 Dose 1 mg .ROUTE .STK-MED ONE Sodium Chloride 1,000 mls @ 999 mls/hr 08/24/22 12:57 08/24/22 14:32 Sodium Chloride 0.9% 1000 Ml IV 08/24/22 13:57 Infused .Q1H1M STA Infusion Sodium Chloride Confirm 08/24/22 13:25 Sodium Chloride 0.9% 1000 Ml Administered 08/24/22 13:26 Dose 1,000 mls @ ud .ROUTE .STK-MED ONE Ondansetron HCl 4 mg 08/24/22 12:57 08/24/22 13:30 Ondansetron Hcl 4 Mg/2 Ml Vial IV 08/24/22 12:58 4 mg STAT ONE Administration Ondansetron HCl Confirm 08/24/22 13:24 Ondansetron Hcl 4 Mg/2 Ml Vial Administered 08/24/22 13:25 Dose 4 mg .ROUTE .STK-MED ONE Thiamine HCl 100 mg 08/24/22 12:57 08/24/22 13:31 Thiamine Hcl 200 Mg/2 Ml Vial IV 08/24/22 12:58 100 mg STAT ONE Administration Thiamine HCl Confirm 08/24/22 13:24 Thiamine Hcl 200 Mg/2 Ml Vial Administered 08/24/22 13:25 Dose 200 mg .ROUTE .STK-MED ONE Lab/Rad Data: Laboratory Result Diagrams 08/24/22 13:12 08/24/22 13:12 Laboratory Results 08/24/22 08/24/22 08/24/22 Range/Units Unknown 13:12 13:12 WBC (4.0-10.5) x10^3/uL RBC (4.1-5.4) x10^6/uL Hgb (12.0-16.0) g/dL Hct (35-47) % MCV (78-100) fL MCH (26-32) pg MCHC (32-36) g/dL RDW (11.5-14.0) % Plt Count (150-450) x10^3/uL MPV (7.5-11.0) fL Gran % (36.0-66.0) % Immature Gran % (Auto) (0.00-0.4) % Nucleat RBC Rel Count (0.00-0.1) % Eos # (Auto) (0-0.5) x10^3/uL Immature Gran # (Auto) (0.00-0.03) x10^3u/L Absolute Lymphs (auto) (1.0-4.6) x10^3/uL Absolute Monos (auto) (0.0-1.3) x10^3/uL Absolute Nucleated RBC (0.00-0.01) x10^3u/L Lymphocytes % (24.0-44.0) % Monocytes % (0.0-12.0) % Eosinophils % (0.00-5.0) % Basophils % (0.0-0.4) % Absolute Granulocytes (1.4-6.9) x10^3/uL Basophils # (0-0.4) x10^3/uL PT (9.4-12.5) SECONDS INR (0.8-3.0) Sodium (137-145) mmol/L Potassium (3.5-5.1) mmol/L Chloride (98-107) mmol/L Carbon Dioxide (22-30) mmol/L Anion Gap (5-15) MEQ/L BUN (7-17) mg/dL Creatinine (0.52-1.04) mg/dL Estimated GFR ML/MIN Glucose (74-106) mg/dL Calcium (8.4-10.2) mg/dL Magnesium (1.6-2.3) mg/dL Total Bilirubin (0.2-1.3) mg/dL AST (14-36) U/L ALT (0-35) U/L Alkaline Phosphatase (38-126) U/L Troponin I < 0.012 (0.000-0.034) ng/mL Serum Total Protein (6.3-8.2) g/dL Albumin (3.5-5.0) g/dL Lipase (23-300) U/L Urinalys Dipstick Clnc MAIN LAB Urine Color YELLOW (YELLOW) Urine Appearance CLEAR (CLEAR) Urine pH 6.5 (5-6) Ur Specific [place] 1.020 (1.005-1.025) POC Urine Protein Conf NEGATIVE (Negative) Urine Ketones MODERATE-40 (NEGATIVE) Urine Nitrite NEGATIVE (NEGATIVE) Urine Bilirubin NEGATIVE (NEGATIVE) Urine Urobilinogen 0.2 (0-1) mg/dL Urine Leukocytes NEGATIVE (NEGATIVE) Urine WBC (Auto) NONE (0-5) /HPF Urine RBC (Auto) Not Reportable U Epithel Cells (Auto) RARE (FEW) /HPF Urine Bacteria (Auto) Not Reportable Urine RBC NEGATIVE (0-5) Jorge L/ul Ur Culture Indicated? NO Urine Glucose NEGATIVE (NEGATIVE) mg/dL Salicylates (2-20) mg/dL Urine Opiates Level (NEGATIVE) Ur Methadone (NEGATIVE) Acetaminophen (10-30) ug/ml Urine Barbiturates (NEGATIVE) Ur Phencyclidine (PCP) (NEGATIVE) Urine Amphetamine (NEGATIVE) U Benzodiazepine Level (NEGATIVE) Urine Cocaine (NEGATIVE) Urine Marijuana (THC) (NEGATIVE) Ethyl Alcohol 17 H (0-10) mg/dL 08/24/22 08/24/22 08/24/22 Range/Units 13:12 13:12 13:12 WBC (4.0-10.5) x10^3/uL RBC (4.1-5.4) x10^6/uL Hgb (12.0-16.0) g/dL Hct (35-47) % MCV (78-100) fL MCH (26-32) pg MCHC (32-36) g/dL RDW (11.5-14.0) % Plt Count (150-450) x10^3/uL MPV (7.5-11.0) fL Gran % (36.0-66.0) % Immature Gran % (Auto) (0.00-0.4) % Nucleat RBC Rel Count (0.00-0.1) % Eos # (Auto) (0-0.5) x10^3/uL Immature Gran # (Auto) (0.00-0.03) x10^3u/L Absolute Lymphs (auto) (1.0-4.6) x10^3/uL Absolute Monos (auto) (0.0-1.3) x10^3/uL Absolute Nucleated RBC (0.00-0.01) x10^3u/L Lymphocytes % (24.0-44.0) % Monocytes % (0.0-12.0) % Eosinophils % (0.00-5.0) % Basophils % (0.0-0.4) % Absolute Granulocytes (1.4-6.9) x10^3/uL Basophils # (0-0.4) x10^3/uL PT 15.2 H (9.4-12.5) SECONDS INR 1.49 (0.8-3.0) Sodium 132 L (137-145) mmol/L Potassium 3.2 L (3.5-5.1) mmol/L Chloride 101 (98-107) mmol/L Carbon Dioxide 19 L (22-30) mmol/L Anion Gap 15.7 H (5-15) MEQ/L BUN 3 L (7-17) mg/dL Creatinine 0.51 L (0.52-1.04) mg/dL Estimated GFR > 60.0 ML/MIN Glucose 89 (74-106) mg/dL Calcium 8.0 L (8.4-10.2) mg/dL Magnesium 1.8 (1.6-2.3) mg/dL Total Bilirubin 0.20 (0.2-1.3) mg/dL AST 77 H (14-36) U/L ALT 34 (0-35) U/L Alkaline Phosphatase 214 H (38-126) U/L Troponin I (0.000-0.034) ng/mL Serum Total Protein 6.4 (6.3-8.2) g/dL Albumin 3.5 (3.5-5.0) g/dL Lipase 180 (23-300) U/L Urinalys Dipstick Clnc Urine Color (YELLOW) Urine Appearance (CLEAR) Urine pH (5-6) Ur Specific [place] (1.005-1.025) POC Urine Protein Conf (Negative) Urine Ketones (NEGATIVE) Urine Nitrite (NEGATIVE) Urine Bilirubin (NEGATIVE) Urine Urobilinogen (0-1) mg/dL Urine Leukocytes (NEGATIVE) Urine WBC (Auto) (0-5) /HPF Urine RBC (Auto) U Epithel Cells (Auto) (FEW) /HPF Urine Bacteria (Auto) Urine RBC (0-5) Jorge L/ul Ur Culture Indicated? Urine Glucose (NEGATIVE) mg/dL Salicylates 18.2 (2-20) mg/dL Urine Opiates Level NEGATIVE (NEGATIVE) Ur Methadone NEGATIVE (NEGATIVE) Acetaminophen 21 (10-30) ug/ml Urine Barbiturates NEGATIVE (NEGATIVE) Ur Phencyclidine (PCP) NEGATIVE (NEGATIVE) Urine Amphetamine NEGATIVE (NEGATIVE) U Benzodiazepine Level NEGATIVE (NEGATIVE) Urine Cocaine NEGATIVE (NEGATIVE) Urine Marijuana (THC) NEGATIVE (NEGATIVE) Ethyl Alcohol (0-10) mg/dL 08/24/22 Range/Units 13:12 WBC 6.6 (4.0-10.5) x10^3/uL RBC 3.88 L (4.1-5.4) x10^6/uL Hgb 11.7 L (12.0-16.0) g/dL Hct 34.6 L (35-47) % MCV 89.2 (78-100) fL MCH 30.2 (26-32) pg MCHC 33.8 (32-36) g/dL RDW 13.1 (11.5-14.0) % Plt Count 376 (150-450) x10^3/uL MPV 9.2 (7.5-11.0) fL Gran % 77.4 H (36.0-66.0) % Immature Gran % (Auto) 0.6 H (0.00-0.4) % Nucleat RBC Rel Count 0.0 (0.00-0.1) % Eos # (Auto) 0 (0-0.5) x10^3/uL Immature Gran # (Auto) 0.04 H (0.00-0.03) x10^3u/L Absolute Lymphs (auto) 0.77 L (1.0-4.6) x10^3/uL Absolute Monos (auto) 0.63 (0.0-1.3) x10^3/uL Absolute Nucleated RBC 0.00 (0.00-0.01) x10^3u/L Lymphocytes % 11.6 L (24.0-44.0) % Monocytes % 9.5 (0.0-12.0) % Eosinophils % 0.0 (0.00-5.0) % Basophils % 0.9 (0.0-0.4) % Absolute Granulocytes 5.12 (1.4-6.9) x10^3/uL Basophils # 0.06 (0-0.4) x10^3/uL PT (9.4-12.5) SECONDS INR (0.8-3.0) Sodium (137-145) mmol/L Potassium (3.5-5.1) mmol/L Chloride (98-107) mmol/L Carbon Dioxide (22-30) mmol/L Anion Gap (5-15) MEQ/L BUN (7-17) mg/dL Creatinine (0.52-1.04) mg/dL Estimated GFR ML/MIN Glucose (74-106) mg/dL Calcium (8.4-10.2) mg/dL Magnesium (1.6-2.3) mg/dL Total Bilirubin (0.2-1.3) mg/dL AST (14-36) U/L ALT (0-35) U/L Alkaline Phosphatase (38-126) U/L Troponin I (0.000-0.034) ng/mL Serum Total Protein (6.3-8.2) g/dL Albumin (3.5-5.0) g/dL Lipase (23-300) U/L Urinalys Dipstick Clnc Urine Color (YELLOW) Urine Appearance (CLEAR) Urine pH (5-6) Ur Specific [place] (1.005-1.025) POC Urine Protein Conf (Negative) Urine Ketones (NEGATIVE) Urine Nitrite (NEGATIVE) Urine Bilirubin (NEGATIVE) Urine Urobilinogen (0-1) mg/dL Urine Leukocytes (NEGATIVE) Urine WBC (Auto) (0-5) /HPF Urine RBC (Auto) U Epithel Cells (Auto) (FEW) /HPF Urine Bacteria (Auto) Urine RBC (0-5) Jorge L/ul Ur Culture Indicated? Urine Glucose (NEGATIVE) mg/dL Salicylates (2-20) mg/dL Urine Opiates Level (NEGATIVE) Ur Methadone (NEGATIVE) Acetaminophen (10-30) ug/ml Urine Barbiturates (NEGATIVE) Ur Phencyclidine (PCP) (NEGATIVE) Urine Amphetamine (NEGATIVE) U Benzodiazepine Level (NEGATIVE) Urine Cocaine (NEGATIVE) Urine Marijuana (THC) (NEGATIVE) Ethyl Alcohol (0-10) mg/dL - Progress Progress: improved Progress Note: 08/24/22 13:20 Plan for IV, fluids, magnesium, thiamine, chest x-ray, basic labs, fluids. We will attempt to get patient feeling better, recheck potassium, sodium. 08/24/22 16:44 Patient feeling improved with medications here. She did have a several hour ob servation time in the ER. She had no further episodes of vomiting. We did offer patient admission for continued IV fluids, electrolyte replacement. Patient ultimately declined. CT scan did demonstrate a hiatal hernia. I discussed this with the patient. CT abdomen pelvis was unchanged. The patient was able to eat and drink in the emergency department without difficulty. I do suspect that this is multifactorial of patient withdrawing from alcohol, benzodiazepines, poor nutrition and fluid intake. Given all this I did give patient the following discharge instructions: "You do have a low potassium today. Your other labs reflect your chronic alcohol abuse. You should decrease your alcohol intake. You may take Zofran and potassium to help with this. Eat a healthy, variable diet for the rest of your electrolyte needs. If you continue to have nausea and vomiting, you may return to the hospital for admission at any point in time. Otherwise return here or follow-up with PCP as described." Patient's adult boyfriend is in the room and will take her home. I went over return precautions and discharge instructions with him. They are return here at any point in time. Counseled pt/family regarding: drug and/or alcohol abuse, lab results, diagnosis, need for follow-up, rad results - Departure Departure Disposition: Home Clinical Impression: Nausea and vomiting, Alcohol abuse, Hiatal hernia Condition: Stable Critical Care Time: No Referrals: JAIMIE KANG [Primary Care Provider] - Follow up/PCP as directed Additional Instructions: You do have a low potassium today. Your other labs reflect your chronic alcohol abuse. You should decrease your alcohol intake. You may take Zofran and potassium to help with this. Eat a healthy, variable diet for the rest of your electrolyte needs. If you continue to have nausea and vomiting, you may return to the hospital for admission at any point in time. Otherwise return here or follow-up with PCP as described. Prescriptions: Ondansetron ODT 4 MG [Zofran Odt 4 mg] 4 mg PO Q6H PRN PRN #10 tablet PRN Reason: Vomiting Potassium Chloride Tab* [Klor Con] 10 meq PO DAILY #5 tab
[2022-08-24 13:24] LABS: Absolute Neutrophil Ct (ANC) 5.12 x10^3/uL (1.4-6.9); Basophil (Absolute #) 0.06 x10^3/uL (0-0.4); Eosinophil (Absolute #) 0 x10^3/uL (0-0.5); Hematocrit 34.6 % (35-47); Hemoglobin 11.7 g/dL (12.0-16.0); Lymphocyte (Absolute #) 0.77 x10^3/uL (1.0-4.6); Lymphocytes % 11.6 % (24.0-44.0); Mean Cell Volume 89.2 fL (78-100); Mean Corpuscular Hemoglobin 30.2 pg (26-32); Mean Corpuscular Hgb Concent. 33.8 g/dL (32-36); Mean Platelet Volume 9.2 fL (7.5-11.0); Monocyte (Absolute #) 0.63 x10^3/uL (0.0-1.3); Monocytes % 9.5 % (0.0-12.0); Neutrophil % 77.4 % (36.0-66.0); Platelet Count 376 x10^3/uL (150-450); Red Blood Count 3.88 x10^6/uL (4.1-5.4); Red Cell Distribution Width 13.1 % (11.5-14.0); White Blood Count 6.6 x10^3/uL (4.0-10.5)
[2022-08-24] MEDS ORDERED: THIAMINE 200 MG/2 ML ONE (13:24)
[2022-08-24] MEDS ORDERED: Zofran 4 MG/2 ML VIAL ONE (13:24)
[2022-08-24] MEDS ORDERED: VALIUM 10 MG/2 ML SYRINGE ONE (13:25)
[2022-08-24] MEDS ORDERED: Sodium Chloride 0.9% 1000 ML 1,000 ML ONE (13:25)
[2022-08-24 13:33] LABS: INR 1.49 (0.8-3.0); PROTIME 15.2 SECONDS (9.4-12.5)
[2022-08-24 13:34] LABS: ACETAMINOPHEN 21 ug/ml (10-30); ALBUMIN 3.5 g/dL (3.5-5.0); ALKALINE PHOSPHATASE 214 U/L (38-126); ANION GAP 15.7 MEQ/L (5-15); BLOOD UREA NITROGEN 3 mg/dL (7-17); CHLORIDE 101 mmol/L (98-107); Carbon Dioxide 19 mmol/L (22-30); Creatinine 1 0.51 mg/dL (0.52-1.04); EST GLOMERULAR FILTRATION RATE > 60.0 ML/MIN; Glucose 89 mg/dL (74-106); LIPASE 180 U/L (23-300); MAGNESIUM 1.8 mg/dL (1.6-2.3); Potassium 3.2 mmol/L (3.5-5.1); SALICYLATE 18.2 mg/dL (2-20); SGOT/AST 77 U/L (14-36); SGPT/ALT 34 U/L (0-35); SODIUM 132 mmol/L (137-145); Total Protein 6.4 g/dL (6.3-8.2)
--- NOTE | 2022-08-24 13:34 | XRAY ---
Indication: Cough. Aspiration. Comparison: August 15, 2022 Portable chest unchanged again hyperinflated and clear with incidental left mid lung calcified granuloma. Heart remains enlarged with large hiatal hernia. No new/acute findings.
[2022-08-24 14:04] LABS: Appearance CLEAR (CLEAR); Bilirubin NEGATIVE (NEGATIVE); Glucose NEGATIVE (NEGATIVE); Ketones MODERATE-40 (NEGATIVE); RBC NEGATIVE Ery/ul (0-5)
[2022-08-24] MEDS ORDERED: Hydromorphone 1 mg/ml Injection IV ONE (14:04)
[2022-08-24] MEDS ORDERED: BENADRYL 50 MG/ML IV ONE (14:04)
[2022-08-24 14:05] LABS: Dipstick done @ ? MAIN LAB; Epithelial Cells RARE /HPF (FEW); Nitrite NEGATIVE (NEGATIVE); Ph 6.5 (5-6); Protein,Urine Dip NEGATIVE (Negative); Urobilinogen 0.2 mg/dL (0-1)
[2022-08-24 14:06] LABS: Urine Cultured Indicated? NO
[2022-08-24] MEDS ORDERED: BENADRYL 50 MG/ML ONE (14:11)
[2022-08-24] MEDS ORDERED: Hydromorphone 1 mg/ml Injection ONE (14:11)
[2022-08-24 14:26] LABS: Amphetamine,Urine NEGATIVE (NEGATIVE); Barbiturate,Urine NEGATIVE (NEGATIVE); Benzodiazepine,Urine NEGATIVE (NEGATIVE); Cocaine,Urine NEGATIVE (NEGATIVE); Methadone,Urine NEGATIVE (NEGATIVE); Opiate,Urine NEGATIVE (NEGATIVE); PCP,Urine NEGATIVE (NEGATIVE); THC,Urine NEGATIVE (NEGATIVE)
[2022-08-24 16:16] VITALS: BP 158/70; PULSE 100; O2SAT 97
--- NOTE | 2022-08-24 16:24 | XRAY ---
Indication: Abdomen pain, nausea, and vomiting. Multiple contiguous axial images obtained through the chest using 100 cc Isovue 370 contrast. Comparison: None Lungs demonstrates small left upper lobe calcified granuloma. No suspicious pulmonary mass, infiltrate, effusion, or pneumothorax. Heart not enlarged. Aorta is normal in course and caliber. Tiny left hilar calcified nodes. No pathologic mediastinal lymphadenopathy. Moderate sized hiatal hernia with partial intrathoracic stomach. 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 Bony thorax intact. CT abdomen/pelvis reported separately. Impression: 1. 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 2. Remaining CT chest with contrast exam is negative.
--- NOTE | 2022-08-24 16:26 | XRAY ---
Indication: Abdomen pain, nausea, and vomiting. Multiple contiguous axial images obtained through the abdomen and pelvis using 100 cc Isovue 370 contrast. Comparison: August 20, 2022 CT chest reported separately Noncontrasted stomach and bowel loops remain nonobstructed with normal appendix. Again scattered descending/sigmoid diverticulosis without diverticulitis, fatty liver, and tiny hepatic/splenic calcified granulomas. No free fluid/air. Remaining liver, gallbladder, pancreas, spleen, adrenal glands, kidneys, ureters, bladder, and uterus are unremarkable. Stable minimal aortoiliac calcifications. No AAA or pathologic retroperitoneal lymphadenopathy. Impression: No change compared to CT 9 days ago. Again chronic findings including fatty liver, colonic diverticulosis, and old granulomatous disease. No new/acute abnormalities.
== END 2022-08-24 16:55 | disposition home or self-care (01) ==
LOC: ED 12:39
DX: R11.2 Nausea with vomiting, unspecified (principal); F10.10 Alcohol abuse, uncomplicated; Y90.0 Blood alcohol level of less than 20 mg/100 ml; K44.9 Diaphragmatic hernia without obstruction or gangrene; J44.9 Chronic obstructive pulmonary disease, unspecified; Z79.899 Other long term (current) drug therapy
CPT/HCPCS: 36000; 36415; 71045; 71260; 74177; 80053; 80307; 81015; 83690; 83735; 84484; 85025; 85610; 93005; 96360; 96374; 96375; 99284; J1170; J1200; J2405; J3360; G0480

== ENCOUNTER 2022-08-27 08:08 | Emergency (ER) | payer OTHER ==
[2022-08-27] MEDS ORDERED: Keppra 500 MG/5 ML*** 1,000 MG in D5w 100ML Mini Bag 100 ML 100 ML IV ONE (08:09)
[2022-08-27] MEDS ORDERED: DIPRIVAN 200 MG/20 ML IV ONE (08:09)
[2022-08-27] MEDS ORDERED: MORPHINE SULFATE 4 MG INJ IV ONE (08:27)
[2022-08-27] MEDS ORDERED: Sodium Chloride 0.9% 1000 ML 1,000 ML IV STA (08:27)
[2022-08-27] MEDS ORDERED: PROTONIX 40 MG IV IV ONE ×2 (08:27→08:38)
[2022-08-27] MEDS ORDERED: Ativan 2 MG/1 ML VIAL IV ONE (08:32)
[2022-08-27] MEDS ORDERED: Ativan 2 MG/1 ML VIAL ONE (08:38)
[2022-08-27] MEDS ORDERED: Sodium Chloride 0.9% 1000 ML 1,000 ML ONE ×3 (08:39→10:31)
[2022-08-27] MEDS ORDERED: MORPHINE SULFATE 4 MG INJ ONE (08:39)
[2022-08-27 08:50] LABS: Absolute Neutrophil Ct (ANC) 11.85 x10^3/uL (1.4-6.9); Basophil (Absolute #) 0.02 x10^3/uL (0-0.4); Eosinophil % 0.3 % (0.00-5.0); Eosinophil (Absolute #) 0.04 x10^3/uL (0-0.5); Hematocrit 36.3 % (35-47); Hemoglobin 12.4 g/dL (12.0-16.0); Lymphocyte (Absolute #) 0.75 x10^3/uL (1.0-4.6); Lymphocytes % 5.6 % (24.0-44.0); Mean Cell Volume 88.3 fL (78-100); Mean Corpuscular Hemoglobin 30.2 pg (26-32); Mean Corpuscular Hgb Concent. 34.2 g/dL (32-36); Mean Platelet Volume 9.4 fL (7.5-11.0); Monocyte (Absolute #) 0.58 x10^3/uL (0.0-1.3); Monocytes % 4.4 % (0.0-12.0); Neutrophil % 88.8 % (36.0-66.0); Platelet Count 420 x10^3/uL (150-450); Red Blood Count 4.11 x10^6/uL (4.1-5.4); Red Cell Distribution Width 12.5 % (11.5-14.0); White Blood Count 13.3 x10^3/uL (4.0-10.5)
[2022-08-27 09:09] LABS: ALBUMIN 3.6 g/dL (3.5-5.0); ALKALINE PHOSPHATASE 208 U/L (38-126); ANION GAP 17.2 MEQ/L (5-15); CHLORIDE 86 mmol/L (98-107); Calcium 8.3 mg/dL (8.4-10.2); Creatinine 1 0.57 mg/dL (0.52-1.04); EST GLOMERULAR FILTRATION RATE > 60.0 ML/MIN; ETHYL ALCOHOL 16 mg/dL (0-10); Glucose 104 mg/dL (74-106); LIPASE 138 U/L (23-300); MAGNESIUM 1.7 mg/dL (1.6-2.3); NT PRO BNP 5140 pg/mL (0-900); Potassium 3.1 mmol/L (3.5-5.1); SGOT/AST 65 U/L (14-36); SGPT/ALT 34 U/L (0-35); Total Protein 6.7 g/dL (6.3-8.2)
[2022-08-27] MEDS ORDERED: Propofol 1000 mg/100 ml Bottle 100 ML IV ONE (09:16)
[2022-08-27 09:23] LABS: BLOOD UREA NITROGEN < 2 mg/dL (7-17)
[2022-08-27 09:24] LABS: Carbon Dioxide 16 mmol/L (22-30); SODIUM 116 mmol/L (137-145)
[2022-08-27 09:32] LABS: Appearance CLEAR (CLEAR); Bilirubin SMALL (NEGATIVE); Glucose NEGATIVE (NEGATIVE); Ketones SMALL-15 (NEGATIVE)
[2022-08-27 09:33] LABS: Dipstick done @ ? MAIN LAB; Mucus SLIGHT /HPF (NEGATIVE); Nitrite NEGATIVE (NEGATIVE); Ph 5.5 (5-6); Protein,Urine Dip 30 (Negative); RBC TRACE-LYSED Ery/ul (0-5); Specific Gravity >=1.030 (1.005-1.025); Urobilinogen 0.2 mg/dL (0-1); WBC 0-2 /HPF (0-5)
[2022-08-27 09:34] LABS: Urine Cultured Indicated? YES
[2022-08-27 09:49] LABS: Amphetamine,Urine NEGATIVE (NEGATIVE); Barbiturate,Urine NEGATIVE (NEGATIVE); Benzodiazepine,Urine POSITIVE (NEGATIVE); Cocaine,Urine NEGATIVE (NEGATIVE); Methadone,Urine NEGATIVE (NEGATIVE); Opiate,Urine POSITIVE (NEGATIVE); PCP,Urine NEGATIVE (NEGATIVE); THC,Urine NEGATIVE (NEGATIVE)
[2022-08-27] MEDS ORDERED: SODIUM BICARBONATE 50 MEQ/50 ML ABBOJECT IV ONE (09:58)
[2022-08-27 09:59] LABS: A-aADO2 233; ABG HEMOGLOBIN 12.4; ARTERIAL BLD GAS TIDAL VOLUME 600 cc; ARTERIAL BLOOD GAS BASE EXCESS -20.1 (-2.0-2.0); ARTERIAL BLOOD GAS FIO2 100 %; ARTERIAL BLOOD GAS PCO2 25 mmHg (35-45); ARTERIAL BLOOD GAS PO2 449 mmHg (75-100); ARTERIAL BLOOD GAS VENT MODE A/C; ARTERIAL BLOOD GAS pH 7.11 (7.35-7.45); CARBOXYHEMOGLOBIN 0.6 % THgb (0.0-6.9); HCO3- 7.9 (22-28); HGB O2 SAT 98.6 g/dF (94-100); Methhemoglobin 0.8 % (1.4-1.5)
[2022-08-27 10:00] LABS: ABG POTASSIUM 2.6 (3.5-5.1); ABG SITE lr
[2022-08-27] MEDS ORDERED: PIPERACILLIN/TAZOBACTAM 3.375 GM in Sodium Chloride 100ML MINI-BAG PLUS 100 ML IV ONE (10:36)
--- NOTE | 2022-08-27 10:39 | ERPHSYRPT ---
- History of Present Illness Time Seen by Provider: 08/27/22 08:24 Source: patient, family, EMS Exam Limitations: no limitations Patient Subjective Stated Complaint: per ems - pt is exhibiting w/d symptoms, states her PCP fired her and she has been out of xanax for 6-7 days, pt reports to EMS that she had a seizire prior to their arrival, pt was postictal, pt was c/o nausea and vomiting as well as anxiety. pt is also an alcoholic and has drank an unknown amount of alcohol this am. Triage Nursing Assessment: pt is aox3, pupils perrl, afebrile, resps easy and non labored, cap refill < 3 seconds, radial pulses strong and equal, pt skin pink warm dry. pt appears anxious, but is cooperative and pleasant with staff. pt speech is clear and appropriate. Physician History: 62 years old female with history of anxiety, depression, hypertension, hyperlipidemia, hypothyroidism, alcohol abuse is brought in the ER with chief complaint of seizure this morning. Patient is awake alert and oriented during my evaluation. She had a seizure with generalized tonic-clonic lasting for almost 1 minute per . No loss of bowel bladder control, no tongue bite. Patient's been taken off of Xanax almost a week ago and is having withdrawal symptoms with tremors, worsening Pasha, nausea/vomiting and diarrhea. She has been evaluated in the ER couple of times before as well with withdrawal symptoms and had low sodium, was admitted. She got better but since last night she is having more anxiety symptoms and has been drinking alcohol, last drink was prior to arrival. Patient is also complaining of generalized chest soreness without difficulty breathing and this has been going off and on for quite some time. Patient thinks is because of repeated vomiting and dry heaving has generalized soreness. No history of CAD in the past. Allergies/Adverse Reactions: No Known Drug Allergies Allergy (Verified 08/27/22 08:21) Home Medications: Fluoxetine HCl 10 mg [Prozac 10 mg] 40 mg PO DAILY 05/30/14 [History] Levothyroxine Sodium 50 Mcg [Synthroid 50 Mcg] 50 mcg PO DAILY 08/15/22 [History] ALPRAZolam [Xanax 0.25 mg] 0.5 mg PO BID PRN 08/16/22 [History] Amlodipine Besylate 5 mg PO HS 08/16/22 [History] Cetirizine HCl [Allergy Relief] 10 mg PO DAILY 08/16/22 [History] Estradiol 1 mg [Estrace 1 mg] 1 mg PO DAILY 08/16/22 [History] Pravastatin Sodium 40 mg PO HS 08/16/22 [History] Hx Tetanus, Diphtheria Vaccination/Date Given: Yes Hx Influenza Vaccination/Date Given: No Hx Pneumococcal Vaccination/Date Given: No Immunizations Up to Date: Yes Travel Risk - International Travel Have you traveled outside of the country in past 3 weeks: No - Coronavirus Screening Are you exhibiting any of the following symptoms?: No Close contact with a COVID-19 positive Pt in past 14-21 Days: No - Vaccine Status Have you recieved a Covid-19 vaccination: Yes Position Classifier: Unknown - Vaccination Dates Dates if Unknown: UNK - Review of Systems Constitutional: Fatigue, Weakness Eyes: No Symptoms Ears, Nose, & Throat: No Symptoms Respiratory: Cough Cardiac: Chest Pain, Palpitations Abdominal/Gastrointestinal: Abdominal Pain, Nausea, Vomiting, Diarrhea Genitourinary Symptoms: No Symptoms Musculoskeletal: Arthralgias, Back Pain Psychological: Alcohol Abuse, Anxiety, Depression Endocrine: No Symptoms Hematologic/Lymphatic: No Symptoms Immunological/Allergic: No Symptoms - Past Medical History Pertinent Past Medical History: Yes Neurological History: Migraines ENT History: No Pertinent History Cardiac History: No Pertinent History Respiratory History: COPD Endocrine Medical History: No Pertinent History Musculoskeletal History: Arthritis GI Medical History: No Pertinent History History: No Pertinent History Psycho-Social History: Anxiety, Depression Female Reproductive Disorders: No Pertinent History Other Medical History: pt poor historian - Past Surgical History Past Surgical History: No - Social History Smoking Status: Former smoker Exposure to second hand smoke: No Drug Use: none Patient Lives Alone: No - Nursing Vital Signs Nursing Vital Signs: Initial Vital Signs Temperature 97.6 F 08/27/22 08:09 Pulse Rate 102 H 08/27/22 08:09 Respiratory Rate 14 08/27/22 08:09 Blood Pressure 144/96 08/27/22 08:09 O2 Sat by Pulse Oximetry 98 08/27/22 08:09 Pain Scale Pain Intensity 0 - Physical Exam General Appearance: no apparent distress, alert Eye Exam: PERRL/EOMI, eyes nml inspection Ears, Nose, Throat Exam: normal ENT inspection, TMs normal, pharynx normal Neck Exam: normal inspection, non-tender, supple, full range of motion Respiratory Exam: normal breath sounds, lungs clear Cardiovascular Exam: regular rate/rhythm, normal heart sounds Gastrointestinal/Abdomen Exam: soft, normal bowel sounds, No tenderness Back Exam: normal inspection, normal range of motion Extremity Exam: normal inspection, normal range of motion Neurologic Exam: alert, oriented x 3, cooperative, employment supervisor II-XII nml as tested, nml cerebellar function, sensation nml, No normal mood/affect, No motor deficits Skin Exam: normal color SpO2 Interpretation: normal SpO2: 99 O2 Delivery: Room Air Procedures - Intubation Time of Intubation: 09:10 Intubation Indications: cardiac arrest, respiratory arrest Intubation Method: orotracheal Tube Size (cm): 7.5 Endotracheal Tube Confirmation: bilateral breath sounds, good rise & fall of chest, stable or inc of O2 sat Intubation Complications: no complications Performed By: ED Physician Post Intubation Xray: Yes Progress/X-ray Impression: 08/27/22 10:59 tip of tube 1.5 cm above berto - Course EKG Interpreted by Me: RATE (100), Sinus Rhythm, NORMAL AXIS, NORMAL INTERVALS, Q-wave, Non-specific ST Changes Ordered Tests: Active Orders 24 hr Category Date Time Status EKG-ER Only STAT Care 08/27/22 08:27 Active Joe [Catheter-[place] Joe] STAT Care 08/27/22 09:37 Active IV Insertion STAT Care 08/27/22 08:27 Active NPO (ED) STAT Care 08/27/22 08:27 Active Telemetry q4h Care 08/27/22 10:33 Active CHEST 1 VIEW (PORTABLE) Stat Exams 08/27/22 08:41 Taken CHEST 1 VIEW (PORTABLE) Stat Exams 08/27/22 09:25 Taken HEAD WITHOUT CONTRAST [CT] Stat Exams 08/27/22 10:34 Taken ABG [ARTERIAL BLOOD GASES] Stat Lab 08/27/22 09:50 Completed CBC W DIFF Stat Lab 08/27/22 08:45 Completed CMP Stat Lab 08/27/22 08:45 Completed CULTURE,URINE Stat Lab 08/27/22 09:32 Received ETHYL ALCOHOL Stat Lab 08/27/22 08:45 Completed LIPASE Stat Lab 08/27/22 08:45 Completed Lactic Acid Stat Lab 08/27/22 08:45 Completed Lactic Acid Stat Lab 08/27/22 10:57 Received MAGNESIUM Stat Lab 08/27/22 08:45 Completed NT PRO BNP Stat Lab 08/27/22 08:45 Completed TROPONIN Q4H Lab 08/27/22 08:45 Completed TROPONIN Q4H Lab 08/27/22 12:30 Ordered TROPONIN Q4H Lab 08/27/22 16:30 Ordered UA W/RFX CULTURE Stat Lab 08/27/22 09:32 Completed Urine Triage Profile Stat Lab 08/27/22 09:36 Completed Medication Summary Generic Name Dose Route Start Last Admin Trade Name Freq PRN Reason Stop Dose Admin Potassium Chloride 20 meq in 100 mls @ 50 mls/hr 08/27/22 10:45 08/27/22 10:56 Potassium Chloride 20 Meq In Water 100ml IV 08/27/22 14:44 50 mls/hr Q2H DG Administration Piperacillin Sod/Tazobactam 100 mls @ 200 mls/hr 08/27/22 10:36 Sod 3.375 gm/ Sodium Chloride IV 08/27/22 11:05 STAT ONE Discontinued Medications Generic Name Dose Route Start Last Admin Trade Name Freq PRN Reason Stop Dose Admin Fentanyl Citrate Confirm 08/27/22 10:44 Fentanyl Citrate 100 Mcg/2 Ml* Vial Administered 08/27/22 10:45 Dose 100 mcg .ROUTE .STK-MED ONE Sodium Chloride 1,000 mls @ 999 mls/hr 08/27/22 08:27 08/27/22 08:42 Sodium Chloride 0.9% 1000 Ml IV 08/27/22 09:27 999 mls/hr .Q1H1M STA Administration Sodium Chloride Confirm 08/27/22 08:39 Sodium Chloride 0.9% 1000 Ml Administered 08/27/22 08:40 Dose 1,000 mls @ ud .ROUTE .STK-MED ONE Propofol Confirm 08/27/22 09:16 Propofol 1000 Mg/100 Ml Bottle Administered 08/27/22 09:17 Dose 100 mls @ ud IV .STK-MED ONE Sodium Chloride Confirm 08/27/22 09:29 Sodium Chloride 0.9% 1000 Ml Administered 08/27/22 09:30 Dose 1,000 mls @ ud .ROUTE .STK-MED ONE Sodium Chloride Confirm 08/27/22 10:31 Sodium Chloride 0.9% 1000 Ml Administered 08/27/22 10:32 Dose 1,000 mls @ ud .ROUTE .STK-MED ONE Sodium Chloride Confirm 08/27/22 10:52 Sodium Chloride 100ml Mini-Bag Plus Administered 08/27/22 10:53 Dose 100 mls @ ud IV .STK-MED ONE Lorazepam 1 mg 08/27/22 08:32 08/27/22 08:43 Lorazepam 2 Mg/1 Ml 2 Mg Vial IV 08/27/22 08:33 1 mg STAT ONE Administration Lorazepam Confirm 08/27/22 08:38 Lorazepam 2 Mg/1 Ml 2 Mg Vial Administered 08/27/22 08:39 Dose 2 mg .ROUTE .STK-MED ONE Morphine Sulfate 4 mg 08/27/22 08:27 08/27/22 08:43 Morphine Sulfate 4 Mg/Ml Injection IV 08/27/22 08:28 4 mg STAT ONE Administration Morphine Sulfate Confirm 08/27/22 08:39 Morphine Sulfate 4 Mg/Ml Injection Administered 08/27/22 08:40 Dose 4 mg .ROUTE .STK-MED ONE Pantoprazole Sodium 40 mg 08/27/22 08:27 08/27/22 08:43 Pantoprazole 40 Mg Vial IV 08/27/22 08:28 40 mg STAT ONE Administration Pantoprazole Sodium Confirm 08/27/22 08:38 Pantoprazole 40 Mg Vial Administered 08/27/22 08:39 Dose 40 mg IV .STK-MED ONE Piperacillin Sod/Tazobactam Sod Confirm 08/27/22 10:51 Piperacillin/Tazobactam Sodium 3.375 Gm Vial Administered 08/27/22 10:52 Dose 3.375 gm IV .STK-MED ONE Sodium Bicarbonate Confirm 08/27/22 09:58 Sodium Bicarbonate 1 Meq/Ml 50ml Syringe Administered 08/27/22 09:59 Dose 50 meq IV .STK-MED ONE Lab/Rad Data: Laboratory Result Diagrams 08/27/22 08:45 08/27/22 08:45 Laboratory Results 08/27/22 08/27/22 08/27/22 Range/Units 09:50 09:36 09:32 WBC (4.0-10.5) x10^3/uL RBC (4.1-5.4) x10^6/uL Hgb (12.0-16.0) g/dL Hct (35-47) % MCV (78-100) fL MCH (26-32) pg MCHC (32-36) g/dL RDW (11.5-14.0) % Plt Count (150-450) x10^3/uL MPV (7.5-11.0) fL Gran % (36.0-66.0) % Immature Gran % (Auto) (0.00-0.4) % Nucleat RBC Rel Count (0.00-0.1) % Eos # (Auto) (0-0.5) x10^3/uL Immature Gran # (Auto) (0.00-0.03) x10^3u/L Absolute Lymphs (auto) (1.0-4.6) x10^3/uL Absolute Monos (auto) (0.0-1.3) x10^3/uL Absolute Nucleated RBC (0.00-0.01) x10^3u/L Lymphocytes % (24.0-44.0) % Monocytes % (0.0-12.0) % Eosinophils % (0.00-5.0) % Basophils % (0.0-0.4) % Absolute Granulocytes (1.4-6.9) x10^3/uL Basophils # (0-0.4) x10^3/uL Puncture Site lr pCO2 25 L (35-45) mmHg pO2 449 H* (75-100) mmHg Base Excess -20.1 L (-2.0-2.0) O2 Saturation 98.6 (94-100) g/dF ABG pH 7.11 L* (7.35-7.45) ABG HCO3 7.9 L* (22-28) ABG O2 Sat (Measured) 100.0 (95-100) % Puma Test na A-a Gradient 233 a/A Ratio 0.66 Hemoglobin 12.4 Carboxyhemoglobin 0.6 (0.0-6.9) % THgb Methemoglobin 0.8 L (1.4-1.5) % Temperature 37.0 C POC O2 Flow Rate 100 % Vent Mode A/C Tidal Volume 600 cc PEEP 5.0 cmH2O Sodium (137-145) mmol/L Potassium 2.6 L* (3.5-5.1) mmol/L Chloride (98-107) mmol/L Carbon Dioxide (22-30) mmol/L Anion Gap (5-15) MEQ/L BUN (7-17) mg/dL Creatinine (0.52-1.04) mg/dL Estimated GFR ML/MIN Glucose (74-106) mg/dL Lactic Acid (0.4-2.0) Calcium (8.4-10.2) mg/dL Magnesium (1.6-2.3) mg/dL Total Bilirubin (0.2-1.3) mg/dL AST (14-36) U/L ALT (0-35) U/L Alkaline Phosphatase (38-126) U/L Troponin I (0.000-0.034) ng/mL NT-Pro-B Natriuret Pep (0-900) pg/mL Serum Total Protein (6.3-8.2) g/dL Albumin (3.5-5.0) g/dL Lipase (23-300) U/L Urinalys Dipstick Clnc MAIN LAB Urine Color DARK YELLOW (YELLOW) Urine Appearance CLEAR (CLEAR) Urine pH 5.5 (5-6) Ur Specific [place] >=1.030 (1.005-1.025) POC Urine Protein Conf 30 (Negative) Urine Ketones SMALL-15 (NEGATIVE) Urine Nitrite NEGATIVE (NEGATIVE) Urine Bilirubin SMALL (NEGATIVE) Urine Urobilinogen 0.2 (0-1) mg/dL Urine Leukocytes NEGATIVE (NEGATIVE) Urine WBC (Auto) 0-2 (0-5) /HPF Urine RBC (Auto) NONE (0-2) /HPF U Epithel Cells (Auto) NONE (FEW) /HPF Urine Bacteria (Auto) NONE (NEGATIVE) /HPF Urine RBC TRACE-LYSED (0-5) Jorge L/ul Urine Mucus (Auto) SLIGHT (NEGATIVE) /HPF Ur Culture Indicated? YES Urine Glucose NEGATIVE (NEGATIVE) mg/dL Urine Opiates Level POSITIVE (NEGATIVE) Ur Methadone NEGATIVE (NEGATIVE) Urine Barbiturates NEGATIVE (NEGATIVE) Ur Phencyclidine (PCP) NEGATIVE (NEGATIVE) Urine Amphetamine NEGATIVE (NEGATIVE) U Benzodiazepine Level POSITIVE (NEGATIVE) Urine Cocaine NEGATIVE (NEGATIVE) Urine Marijuana (THC) NEGATIVE (NEGATIVE) Ethyl Alcohol (0-10) mg/dL 08/27/22 08/27/22 08/27/22 Range/Units 08:45 08:45 08:45 WBC (4.0-10.5) x10^3/uL RBC (4.1-5.4) x10^6/uL Hgb (12.0-16.0) g/dL Hct (35-47) % MCV (78-100) fL MCH (26-32) pg MCHC (32-36) g/dL RDW (11.5-14.0) % Plt Count (150-450) x10^3/uL MPV (7.5-11.0) fL Gran % (36.0-66.0) % Immature Gran % (Auto) (0.00-0.4) % Nucleat RBC Rel Count (0.00-0.1) % Eos # (Auto) (0-0.5) x10^3/uL Immature Gran # (Auto) (0.00-0.03) x10^3u/L Absolute Lymphs (auto) (1.0-4.6) x10^3/uL Absolute Monos (auto) (0.0-1.3) x10^3/uL Absolute Nucleated RBC (0.00-0.01) x10^3u/L Lymphocytes % (24.0-44.0) % Monocytes % (0.0-12.0) % Eosinophils % (0.00-5.0) % Basophils % (0.0-0.4) % Absolute Granulocytes (1.4-6.9) x10^3/uL Basophils # (0-0.4) x10^3/uL Puncture Site pCO2 (35-45) mmHg pO2 (75-100) mmHg Base Excess (-2.0-2.0) O2 Saturation (94-100) g/dF ABG pH (7.35-7.45) ABG HCO3 (22-28) ABG O2 Sat (Measured) (95-100) % Puma Test A-a Gradient a/A Ratio Hemoglobin Carboxyhemoglobin (0.0-6.9) % THgb Methemoglobin (1.4-1.5) % Temperature C POC O2 Flow Rate % Vent Mode Tidal Volume cc PEEP cmH2O Sodium 116 L* (137-145) mmol/L Potassium 3.1 L (3.5-5.1) mmol/L Chloride 86 L (98-107) mmol/L Carbon Dioxide 16 L* (22-30) mmol/L Anion Gap 17.2 H (5-15) MEQ/L BUN < 2 L (7-17) mg/dL Creatinine 0.57 (0.52-1.04) mg/dL Estimated GFR > 60.0 ML/MIN Glucose 104 (74-106) mg/dL Lactic Acid 2.9 H (0.4-2.0) Calcium 8.3 L (8.4-10.2) mg/dL Magnesium 1.7 (1.6-2.3) mg/dL Total Bilirubin 0.60 (0.2-1.3) mg/dL AST 65 H (14-36) U/L ALT 34 (0-35) U/L Alkaline Phosphatase 208 H (38-126) U/L Troponin I 0.275 H* (0.000-0.034) ng/mL NT-Pro-B Natriuret Pep 5140 H (0-900) pg/mL Serum Total Protein 6.7 (6.3-8.2) g/dL Albumin 3.6 (3.5-5.0) g/dL Lipase 138 (23-300) U/L Urinalys Dipstick Clnc Urine Color (YELLOW) Urine Appearance (CLEAR) Urine pH (5-6) Ur Specific [place] (1.005-1.025) POC Urine Protein Conf (Negative) Urine Ketones (NEGATIVE) Urine Nitrite (NEGATIVE) Urine Bilirubin (NEGATIVE) Urine Urobilinogen (0-1) mg/dL Urine Leukocytes (NEGATIVE) Urine WBC (Auto) (0-5) /HPF Urine RBC (Auto) (0-2) /HPF U Epithel Cells (Auto) (FEW) /HPF Urine Bacteria (Auto) (NEGATIVE) /HPF Urine RBC (0-5) Jorge L/ul Urine Mucus (Auto) (NEGATIVE) /HPF Ur Culture Indicated? Urine Glucose (NEGATIVE) mg/dL Urine Opiates Level (NEGATIVE) Ur Methadone (NEGATIVE) Urine Barbiturates (NEGATIVE) Ur Phencyclidine (PCP) (NEGATIVE) Urine Amphetamine (NEGATIVE) U Benzodiazepine Level (NEGATIVE) Urine Cocaine (NEGATIVE) Urine Marijuana (THC) (NEGATIVE) Ethyl Alcohol 16 H (0-10) mg/dL 08/27/22 Range/Units 08:45 WBC 13.3 H (4.0-10.5) x10^3/uL RBC 4.11 (4.1-5.4) x10^6/uL Hgb 12.4 (12.0-16.0) g/dL Hct 36.3 (35-47) % MCV 88.3 (78-100) fL MCH 30.2 (26-32) pg MCHC 34.2 (32-36) g/dL RDW 12.5 (11.5-14.0) % Plt Count 420 (150-450) x10^3/uL MPV 9.4 (7.5-11.0) fL Gran % 88.8 H (36.0-66.0) % Immature Gran % (Auto) 0.7 H (0.00-0.4) % Nucleat RBC Rel Count 0.0 (0.00-0.1) % Eos # (Auto) 0.04 (0-0.5) x10^3/uL Immature Gran # (Auto) 0.09 H (0.00-0.03) x10^3u/L Absolute Lymphs (auto) 0.75 L (1.0-4.6) x10^3/uL Absolute Monos (auto) 0.58 (0.0-1.3) x10^3/uL Absolute Nucleated RBC 0.00 (0.00-0.01) x10^3u/L Lymphocytes % 5.6 L (24.0-44.0) % Monocytes % 4.4 (0.0-12.0) % Eosinophils % 0.3 (0.00-5.0) % Basophils % 0.2 (0.0-0.4) % Absolute Granulocytes 11.85 H (1.4-6.9) x10^3/uL Basophils # 0.02 (0-0.4) x10^3/uL Puncture Site pCO2 (35-45) mmHg pO2 (75-100) mmHg Base Excess (-2.0-2.0) O2 Saturation (94-100) g/dF ABG pH (7.35-7.45) ABG HCO3 (22-28) ABG O2 Sat (Measured) (95-100) % Puma Test A-a Gradient a/A Ratio Hemoglobin Carboxyhemoglobin (0.0-6.9) % THgb Methemoglobin (1.4-1.5) % Temperature C POC O2 Flow Rate % Vent Mode Tidal Volume cc PEEP cmH2O Sodium (137-145) mmol/L Potassium (3.5-5.1) mmol/L Chloride (98-107) mmol/L Carbon Dioxide (22-30) mmol/L Anion Gap (5-15) MEQ/L BUN (7-17) mg/dL Creatinine (0.52-1.04) mg/dL Estimated GFR ML/MIN Glucose (74-106) mg/dL Lactic Acid (0.4-2.0) Calcium (8.4-10.2) mg/dL Magnesium (1.6-2.3) mg/dL Total Bilirubin (0.2-1.3) mg/dL AST (14-36) U/L ALT (0-35) U/L Alkaline Phosphatase (38-126) U/L Troponin I (0.000-0.034) ng/mL NT-Pro-B Natriuret Pep (0-900) pg/mL Serum Total Protein (6.3-8.2) g/dL Albumin (3.5-5.0) g/dL Lipase (23-300) U/L Urinalys Dipstick Clnc Urine Color (YELLOW) Urine Appearance (CLEAR) Urine pH (5-6) Ur Specific [place] (1.005-1.025) POC Urine Protein Conf (Negative) Urine Ketones (NEGATIVE) Urine Nitrite (NEGATIVE) Urine Bilirubin (NEGATIVE) Urine Urobilinogen (0-1) mg/dL Urine Leukocytes (NEGATIVE) Urine WBC (Auto) (0-5) /HPF Urine RBC (Auto) (0-2) /HPF U Epithel Cells (Auto) (FEW) /HPF Urine Bacteria (Auto) (NEGATIVE) /HPF Urine RBC (0-5) Jorge L/ul Urine Mucus (Auto) (NEGATIVE) /HPF Ur Culture Indicated? Urine Glucose (NEGATIVE) mg/dL Urine Opiates Level (NEGATIVE) Ur Methadone (NEGATIVE) Urine Barbiturates (NEGATIVE) Ur Phencyclidine (PCP) (NEGATIVE) Urine Amphetamine (NEGATIVE) U Benzodiazepine Level (NEGATIVE) Urine Cocaine (NEGATIVE) Urine Marijuana (THC) (NEGATIVE) Ethyl Alcohol (0-10) mg/dL - Progress Progress: re-examined Progress Note: 08/27/22 0*9:20 62-year-old is evaluated for seizures prior to arrival. Patient is awake alert and oriented during my evaluation on presentation in the ER. She is given Ativan and morphine for chest pain and anxiety. While in the ER she had a full-blown seizure activity with cardiopulmonary arrest and patient was immediately followed with ACLS protocol and promptly intubated. She has ROSC. I believe patient has cardiac arrest secondary to respiratory arrest. Chest x- ray showed bilateral infiltrative process and will give a dose of antibiotics. Initial EKG on presentation had some questionable changes in the ST segment and anterolateral leads and on repeat EKG after CPR there is a little more worsening. Patient has a troponin of 0.27 and a sodium of 116, potassium 3.1 with mag of 1.7. I believe patient has a combination of things causing seizure with low sodium and withdrawals. It is hard to say that that ST elevation post CPR is real or related to CPR. Will obtain CT head and once it is clear, will give rectal aspirin. 08/27/22 10:05 She is also given a dose of Keppra and currently on propofol. She has received a fluid bolus and will continue with 125/h. She has a bicarb of 7.6 and given an ampule and has a pH of 7.1. Patient has stable blood pressure in 130s and heart rate in 120s. No beds are available in [facility]. Discussed with Dr. Byron White at [facility], reviewed history, work- up and patient is excepted for transfer. If her CT head is negative, she will give rectal aspirin. Patient is thoroughly briefed and he agrees with plan of transfer. 08/27/22 10:57 [facility] without shared EKG with your intake nurse and do not think it is a STEMI and recommended just aspirin and holding off on heparin for now. Discussed with Dr.: Other (Dr. Fair [facility] hospitalist) Counseled pt/family regarding: lab results, diagnosis, rad results - Departure Departure Disposition: Transfer Clinical Impression: Cardiac arrest, Seizure, Hyponatremia, Alcohol abuse, Hypokalemia, Medication withdrawal, NSTEMI (non-ST elevated myocardial infarction) Condition: Serious Critical Care Time: Yes Critical Care Time(excluding separately billable procedures): Critical 75-104 mins Referrals: JAIMIE KANG [Primary Care Provider] - Follow up/PCP as directed
[2022-08-27] MEDS ORDERED: SUBLIMAZE 100 MCG/2 ML ONE ×2 (10:44→11:56)
[2022-08-27] MEDS ORDERED: PIPERACILLIN/TAZOBACTAM IV ONE (10:51)
[2022-08-27] MEDS ORDERED: Sodium Chloride 100ML MINI-BAG PLUS 100 ML IV ONE (10:52)
[2022-08-27] MEDS ORDERED: POTASSIUM CHLORIDE 20 mEq IN WATER 100ML 100 ML IV ONE ×2 (10:52→12:15)
[2022-08-27] MEDS: POTASSIUM CHLORIDE 20 mEq IN WATER 100ML 20 MEQ/100 ML BAG IV SCH ×2 (10:56→12:16)
[2022-08-27] MEDS ORDERED: ASPIRIN RC STA (11:18)
[2022-08-27 11:55] VITALS: O2SAT 97
[2022-08-27 12:03] VITALS: BP 113/72; PULSE 104
--- NOTE | 2022-08-27 18:32 | XRAY ---
Indication: Chest pain. Comparison: August 24, 2022 Portable chest demonstrates new right middle lobe atelectasis. Remaining chest unchanged again demonstrating calcified granulomas and large hiatal hernia. Heart not enlarged.
--- NOTE | 2022-08-27 18:34 | XRAY ---
Indication: Endotracheal tube placement. Comparison: Earlier in the day. Portable chest demonstrates new endotracheal tube tip 1.5 cm above berto. Resolving right middle lobe atelectasis. Remaining chest unchanged again demonstrating calcified granulomas and hiatal hernia. Heart not enlarged. The Comment: Preliminary interpretation made by [facility]. No critical discrepancy.
--- NOTE | 2022-08-27 18:36 | XRAY ---
Indication: Acute mental status change. Status post code. History seizures. Multiple contiguous axial images obtained through the head without contrast. Comparison: August 17, 2022 Again age-appropriate global atrophy. No acute intracranial hemorrhage, abnormal extra-axial fluid collection, or mass effect. Fourth ventricle is midline without hydrocephalus. Bony calvarium intact. New partially visualized endotracheal tube. Visualized paranasal sinuses and mastoid air cells are clear. Impression: Continued negative CT head without contrast exam. Comment: Preliminary interpretation made by [facility]. No critical discrepancy.
== END 2022-08-27 12:50 | disposition short-term general hospital (02) ==
LOC: ED 08:08
DX: R56.9 Unspecified convulsions (principal); I21.4 Non-ST elevation (NSTEMI) myocardial infarction; R07.9 Chest pain, unspecified; E87.6 Hypokalemia; I46.9 Cardiac arrest, cause unspecified; F41.9 Anxiety disorder, unspecified; F15.23 Other stimulant dependence with withdrawal; E87.1 Hypo-osmolality and hyponatremia; F10.10 Alcohol abuse, uncomplicated; Z79.899 Other long term (current) drug therapy
CPT/HCPCS: 31500; 36000; 36415; 36600; 51702; 70450; 71045; 80053; 80307; 81015; 82375; 82803; 82947; 83605; 83690; 83735; 83880; 84484; 85025; 87086; 93005; 93041; 94002; 94760; 94799; 96360; 96365; 96367; 96374; 96375; 96376; 99285; 99291; 99292; G0480; J1953; J2060; J2270; J2704; J3010; J3480

== ENCOUNTER 2022-09-24 18:50 | Observation (INO) | payer OTHER ==
[2022-09-24] MEDS ORDERED: BABY ASPIRIN 81 MG CHEW PO ONE (18:59)
[2022-09-24] MEDS ORDERED: MORPHINE SULFATE 4 MG INJ IV ONE (18:59)
[2022-09-24] MEDS ORDERED: Zofran 4 MG/2 ML VIAL IV ONE (18:59)
[2022-09-24] MEDS ORDERED: Zofran 4 MG/2 ML VIAL ONE (19:02)
[2022-09-24] MEDS ORDERED: MORPHINE SULFATE 4 MG INJ ONE (19:03)
[2022-09-24] MEDS ORDERED: BABY ASPIRIN 81 MG CHEW ONE (19:03)
[2022-09-24 19:04] LABS: Absolute Neutrophil Ct (ANC) 7.32 x10^3/uL (1.4-6.9); Basophil (Absolute #) 0.09 x10^3/uL (0-0.4); Eosinophil % 2.9 % (0.00-5.0); Eosinophil (Absolute #) 0.33 x10^3/uL (0-0.5); Hematocrit 41.8 % (35-47); Hemoglobin 13.6 g/dL (12.0-16.0); Lymphocyte (Absolute #) 2.39 x10^3/uL (1.0-4.6); Lymphocytes % 21.1 % (24.0-44.0); Mean Cell Volume 92.1 fL (78-100); Mean Corpuscular Hgb Concent. 32.5 g/dL (32-36); Mean Platelet Volume 9.4 fL (7.5-11.0); Monocyte (Absolute #) 1.15 x10^3/uL (0.0-1.3); Monocytes % 10.1 % (0.0-12.0); Neutrophil % 64.6 % (36.0-66.0); Platelet Count 481 x10^3/uL (150-450); Red Blood Count 4.54 x10^6/uL (4.1-5.4); Red Cell Distribution Width 13.4 % (11.5-14.0); White Blood Count 11.3 x10^3/uL (4.0-10.5)
--- NOTE | 2022-09-24 19:27 | ERPHSYRPT ---
- History of Present Illness Time Seen by Provider: 09/24/22 18:56 Historian: patient Exam Limitations: no limitations Patient Subjective Stated Complaint: pt here for chest pain for over an hour at home.states better at rest,pt had a recent stay in the hosptial for a seizure and resp arrest, pt is a poor histoiran Triage Nursing Assessment: pt arrived per ambulance alert, but forgetful at times which is normal for her she is anxious, resp easy, skin w/d/p,chest clear, no swelling to legs Physician History: 62 years old female with history of hypertension, hyperlipidemia, anxiety, hypothyroidism presented in the ER with chief complaint of left-sided chest pain nonradiating, dull aching moderate intensity without any significant aggravating or relieving factors, going off and on since morning getting worse for almost an hour. No difficulty breathing, palpitations/racing of heart. No fever chills or cough reported. Timing/Duration: today, constant, gradual onset, worse Activities at Onset: rest Quality: dullness Location: substernal Chest Pain Radiation: no radiation Severity of Pain-Max: moderate Severity of Pain-Current: moderate Modifying Factors: Improves With: nothing Associated Symptoms: denies symptoms Prior Chest Pain/Cardiac Workup: no prior cardiac workup Nitro Today/Relief: no nitro taken today Aspirin Treatment Today: unknown Allergies/Adverse Reactions: No Known Drug Allergies Allergy (Verified 08/27/22 08:21) Home Medications: Fluoxetine HCl 10 mg [Prozac 10 mg] 40 mg PO DAILY 05/30/14 [History] Levothyroxine Sodium 50 Mcg [Synthroid 50 Mcg] 50 mcg PO DAILY 08/15/22 [History] ALPRAZolam [Xanax 0.25 mg] 0.5 mg PO BID PRN 08/16/22 [History] Amlodipine Besylate 5 mg PO HS 08/16/22 [History] Cetirizine HCl [Allergy Relief] 10 mg PO DAILY 08/16/22 [History] Estradiol 1 mg [Estrace 1 mg] 1 mg PO DAILY 08/16/22 [History] Pravastatin Sodium 40 mg PO HS 08/16/22 [History] Hx Tetanus, Diphtheria Vaccination/Date Given: Yes Hx Influenza Vaccination/Date Given: No Hx Pneumococcal Vaccination/Date Given: No Travel Risk - International Travel Have you traveled outside of the country in past 3 weeks: No - Coronavirus Screening Are you exhibiting any of the following symptoms?: No - Vaccine Status Have you recieved a Covid-19 vaccination: Yes Home Visit Field Care Manager: Unknown - Vaccination Dates Date of 2cond Vaccination (if applicable): 2020 Dates if Unknown: UNK - Review of Systems Constitutional: No Symptoms Eyes: No Symptoms Ears, Nose, & Throat: No Symptoms Respiratory: No Symptoms Cardiac: Chest Pain Abdominal/Gastrointestinal: No Symptoms Genitourinary Symptoms: No Symptoms Musculoskeletal: No Symptoms Skin: No Symptoms Neurological: No Symptoms Psychological: No Symptoms Endocrine: No Symptoms Hematologic/Lymphatic: No Symptoms Immunological/Allergic: No Symptoms - Past Medical History Pertinent Past Medical History: Yes Neurological History: Migraines, Seizures ENT History: No Pertinent History Cardiac History: No Pertinent History Respiratory History: COPD Endocrine Medical History: No Pertinent History Musculoskeletal History: Arthritis GI Medical History: No Pertinent History History: No Pertinent History Psycho-Social History: Anxiety, Depression Female Reproductive Disorders: No Pertinent History Other Medical History: pt poor historian, seizures from withdrawal 08/2022 - Past Surgical History Past Surgical History: No - Social History Smoking Status: Current some day smoker Exposure to second hand smoke: No Drug Use: none Patient Lives Alone: No - Nursing Vital Signs Nursing Vital Signs: Initial Vital Signs Temperature 97.0 F 09/24/22 18:59 Pulse Rate 97 H 09/24/22 18:59 Respiratory Rate 20 09/24/22 18:59 Blood Pressure 129/84 09/24/22 18:59 O2 Sat by Pulse Oximetry 98 09/24/22 18:59 Pain Scale Pain Intensity 7 - Physical Exam General Appearance: no apparent distress Eye Exam: PERRL/EOMI Ears, Nose, Throat Exam: normal ENT inspection, pharynx normal Neck Exam: normal inspection, supple, full range of motion Respiratory Exam: normal breath sounds, lungs clear Cardiovascular Exam: regular rate/rhythm, normal heart sounds Gastrointestinal/Abdomen Exam: soft, normal bowel sounds, No tenderness Back Exam: normal inspection, normal range of motion Extremity Exam: normal inspection, normal range of motion Neurologic Exam: alert, oriented x 3, cooperative, oil scout II-XII nml as tested Skin Exam: normal color SpO2 Interpretation: normal SpO2: 98 O2 Delivery: Room Air - Course EKG Interpreted by Me: RATE (105), Sinus Tach, NORMAL AXIS, NORMAL INTERVALS, Non-specific ST Changes, Other (Anteroseptal T wave inversion) Ordered Tests: Active Orders 24 hr Category Date Time Status Print Washer STAT Care 09/24/22 18:59 Active EKG-ER Only STAT Care 09/24/22 18:59 Active IV Insertion STAT Care 09/24/22 18:59 Active Pulse Oximetry (ED) STAT Care 09/24/22 18:59 Active CHEST 1 VIEW (PORTABLE) Stat Exams 09/24/22 18:59 Completed CBC W DIFF Stat Lab 09/24/22 19:01 Completed CK-Creatinine Phosphokinase Stat Lab 09/24/22 19:01 Completed CMP Stat Lab 09/24/22 19:01 Completed D-DIMER QUANTITATIVE Stat Lab 09/24/22 19:00 Completed NT PRO BNP Stat Lab 09/24/22 19:01 Completed TROPONIN Q4H Lab 09/24/22 19:01 Completed TROPONIN Q4H Lab 09/24/22 23:00 Ordered TROPONIN Q4H Lab 09/25/22 03:00 Ordered Transfer Order Routine Transfer 09/24/22 Ordered Medication Summary Generic Name Dose Route Start Last Admin Trade Name Freq PRN Reason Stop Dose Admin Sodium Chloride 1,000 mls @ 125 mls/hr 09/24/22 21:30 Sodium Chloride 0.9% 1000 Ml IV 10/24/22 21:29 .Q8H DG Discontinued Medications Generic Name Dose Route Start Last Admin Trade Name Freq PRN Reason Stop Dose Admin Aspirin 324 mg 09/24/22 18:59 09/24/22 19:04 Aspirin 81 Mg Tab.Chew PO 09/24/22 19:00 Not Given STAT ONE Aspirin Confirm 09/24/22 19:03 Aspirin 81 Mg Tab.Chew Administered 09/24/22 19:04 Dose 324 mg .ROUTE .STK-MED ONE Lorazepam 1 mg 09/24/22 20:09 09/24/22 20:14 Lorazepam 2 Mg/1 Ml 2 Mg Vial IV 09/24/22 20:10 1 mg STAT ONE Administration Lorazepam Confirm 09/24/22 20:13 Lorazepam 2 Mg/1 Ml 2 Mg Vial Administered 09/24/22 20:14 Dose 2 mg .ROUTE .STK-MED ONE Morphine Sulfate 4 mg 09/24/22 18:59 09/24/22 19:06 Morphine Sulfate 4 Mg/Ml Injection IV 09/24/22 19:00 4 mg STAT ONE Administration Morphine Sulfate Confirm 09/24/22 19:03 Morphine Sulfate 4 Mg/Ml Injection Administered 09/24/22 19:04 Dose 4 mg .ROUTE .STK-MED ONE Ondansetron HCl 4 mg 09/24/22 18:59 09/24/22 19:06 Ondansetron Hcl 4 Mg/2 Ml Vial IV 09/24/22 19:00 4 mg STAT ONE Administration Ondansetron HCl Confirm 09/24/22 19:02 Ondansetron Hcl 4 Mg/2 Ml Vial Administered 09/24/22 19:03 Dose 4 mg .ROUTE .STK-MED ONE Lab/Rad Data: Laboratory Result Diagrams 09/24/22 19:01 09/24/22 19:01 Laboratory Results 09/24/22 09/24/22 09/24/22 Range/Units 20:40 19:01 19:01 WBC (4.0-10.5) x10^3/uL RBC (4.1-5.4) x10^6/uL Hgb (12.0-16.0) g/dL Hct (35-47) % MCV (78-100) fL MCH (26-32) pg MCHC (32-36) g/dL RDW (11.5-14.0) % Plt Count (150-450) x10^3/uL MPV (7.5-11.0) fL Gran % (36.0-66.0) % Immature Gran % (Auto) (0.00-0.4) % Nucleat RBC Rel Count (0.00-0.1) % Eos # (Auto) (0-0.5) x10^3/uL Immature Gran # (Auto) (0.00-0.03) x10^3u/L Absolute Lymphs (auto) (1.0-4.6) x10^3/uL Absolute Monos (auto) (0.0-1.3) x10^3/uL Absolute Nucleated RBC (0.00-0.01) x10^3u/L Lymphocytes % (24.0-44.0) % Monocytes % (0.0-12.0) % Eosinophils % (0.00-5.0) % Basophils % (0.0-0.4) % Absolute Granulocytes (1.4-6.9) x10^3/uL Basophils # (0-0.4) x10^3/uL D-Dimer (0.0-0.50) mg/L Sodium 128 L (137-145) mmol/L Potassium 3.4 L (3.5-5.1) mmol/L Chloride 96 L (98-107) mmol/L Carbon Dioxide 23 (22-30) mmol/L Anion Gap 12.6 (5-15) MEQ/L BUN 19 H (7-17) mg/dL Creatinine 0.42 L (0.52-1.04) mg/dL Estimated GFR > 60.0 ML/MIN Glucose 117 H (74-106) mg/dL Calcium 9.3 (8.4-10.2) mg/dL Total Bilirubin 0.30 (0.2-1.3) mg/dL AST 24 (14-36) U/L ALT 19 (0-35) U/L Alkaline Phosphatase 238 H (38-126) U/L Creatine Kinase < 20 L (30-135) U/L Troponin I < 0.012 (0.000-0.034) ng/mL NT-Pro-B Natriuret Pep 419 (0-900) pg/mL Serum Total Protein 6.8 (6.3-8.2) g/dL Albumin 3.6 (3.5-5.0) g/dL Influenza Type A Ag NEGATIVE (NEGATIVE) Influenza Type B Ag NEGATIVE (NEGATIVE) RSV (PCR) NEGATIVE (Negative) SARS-CoV-2 (PCR) NEGATIVE (NEGATIVE) 09/24/22 09/24/22 Range/Units 19:01 19:00 WBC 11.3 H (4.0-10.5) x10^3/uL RBC 4.54 (4.1-5.4) x10^6/uL Hgb 13.6 (12.0-16.0) g/dL Hct 41.8 (35-47) % MCV 92.1 (78-100) fL MCH 30.0 (26-32) pg MCHC 32.5 (32-36) g/dL RDW 13.4 (11.5-14.0) % Plt Count 481 H (150-450) x10^3/uL MPV 9.4 (7.5-11.0) fL Gran % 64.6 (36.0-66.0) % Immature Gran % (Auto) 0.5 H (0.00-0.4) % Nucleat RBC Rel Count 0.0 (0.00-0.1) % Eos # (Auto) 0.33 (0-0.5) x10^3/uL Immature Gran # (Auto) 0.06 H (0.00-0.03) x10^3u/L Absolute Lymphs (auto) 2.39 (1.0-4.6) x10^3/uL Absolute Monos (auto) 1.15 (0.0-1.3) x10^3/uL Absolute Nucleated RBC 0.00 (0.00-0.01) x10^3u/L Lymphocytes % 21.1 L (24.0-44.0) % Monocytes % 10.1 (0.0-12.0) % Eosinophils % 2.9 (0.00-5.0) % Basophils % 0.8 (0.0-0.4) % Absolute Granulocytes 7.32 H (1.4-6.9) x10^3/uL Basophils # 0.09 (0-0.4) x10^3/uL D-Dimer < 0.19 (0.0-0.50) mg/L Sodium (137-145) mmol/L Potassium (3.5-5.1) mmol/L Chloride (98-107) mmol/L Carbon Dioxide (22-30) mmol/L Anion Gap (5-15) MEQ/L BUN (7-17) mg/dL Creatinine (0.52-1.04) mg/dL Estimated GFR ML/MIN Glucose (74-106) mg/dL Calcium (8.4-10.2) mg/dL Total Bilirubin (0.2-1.3) mg/dL AST (14-36) U/L ALT (0-35) U/L Alkaline Phosphatase (38-126) U/L Creatine Kinase (30-135) U/L Troponin I (0.000-0.034) ng/mL NT-Pro-B Natriuret Pep (0-900) pg/mL Serum Total Protein (6.3-8.2) g/dL Albumin (3.5-5.0) g/dL Influenza Type A Ag (NEGATIVE) Influenza Type B Ag (NEGATIVE) RSV (PCR) (Negative) SARS-CoV-2 (PCR) (NEGATIVE) - Progress Progress: improved Air Movement: good Progress Note: 09/24/22 21:25 62-year-old is evaluated for chest pain. EKG showed sinus tach with anterolateral T wave inversions. Given symptomatic treatment for pain, on reevaluation feeling much better. Work-up showed normal white count and negative initial troponin and D-dimer. Chest x-ray no acute findings. Has mildly low sodium and started on gentle hydration. Patient does not have any cardiac work-up done in the recent past, discussed with Dr. Dobbs and patient is being admitted for observation. Blood Culture(s) Obtained: No Antibiotics given: No Discussed with : Iram Will see patient in: hospital (observation) Counseled pt/family regarding: lab results, diagnosis, rad results - Departure Departure Disposition: Observation Clinical Impression: Chest pain, rule out acute myocardial infarction Condition: Stable Critical Care Time: No Referrals: JAIMIE KANG [COURTESY STAFF] - Follow up/PCP as directed
[2022-09-24 19:28] LABS: ALBUMIN 3.6 g/dL (3.5-5.0); ALKALINE PHOSPHATASE 238 U/L (38-126); ANION GAP 12.6 MEQ/L (5-15); BLOOD UREA NITROGEN 19 mg/dL (7-17); CHLORIDE 96 mmol/L (98-107); CK-Creatinine Phosphokinase < 20 U/L (30-135); Calcium 9.3 mg/dL (8.4-10.2); Carbon Dioxide 23 mmol/L (22-30); Creatinine 1 0.42 mg/dL (0.52-1.04); EST GLOMERULAR FILTRATION RATE > 60.0 ML/MIN; Glucose 117 mg/dL (74-106); NT PRO BNP 419 pg/mL (0-900); Potassium 3.4 mmol/L (3.5-5.1); SGOT/AST 24 U/L (14-36); SGPT/ALT 19 U/L (0-35); SODIUM 128 mmol/L (137-145); Total Protein 6.8 g/dL (6.3-8.2)
[2022-09-24] MEDS ORDERED: Ativan 2 MG/1 ML VIAL IV ONE (20:09)
--- NOTE | 2022-09-24 20:11 | XRAY ---
Indication: Chest pain. 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 No focal infiltrate, consolidation, or large effusion. Heart not enlarged. Bony thorax intact again with mild osteopenia and degenerative changes. Impression: Continued nonacute chest with chronic features.
[2022-09-24] MEDS ORDERED: Ativan 2 MG/1 ML VIAL ONE (20:13)
[2022-09-24 21:17] LABS: INFLUENZA A NEGATIVE (NEGATIVE); INFLUENZA B NEGATIVE (NEGATIVE); RESPIRATORY SYNCTIAL VIRUS NEGATIVE (Negative); SARS-CoV-2 Xpert Express NEGATIVE (NEGATIVE)
[2022-09-24] MEDS: Sodium Chloride 0.9% 1000 ML 1,000 ML IV SCH (22:11)
[2022-09-24] MEDS ORDERED: DUONEB 0.5-3 MG/3 ml Neb IH PRN (22:20)
[2022-09-24] MEDS ORDERED: Zofran 4 MG/2 ML VIAL IV PRN (22:20)
[2022-09-24] MEDS ORDERED: TYLENOL 325 MG PO PRN (22:20)
[2022-09-24] MEDS ORDERED: MORPHINE SULFATE 2 MG INJ IV PRN (22:20)
[2022-09-24] MEDS ORDERED: BUSPAR 5 MG PO ONE (23:42)
[2022-09-24] MEDS ORDERED: ZOCOR 20MG PO ONE (23:42)
[2022-09-24] MEDS ORDERED: Protonix 40MG Tablet PO ONE (23:43)
[2022-09-24] MEDS ORDERED: Ativan 1 MG PO ONE (23:44)
[2022-09-25 04:04] LABS: ALBUMIN 3.1 g/dL (3.5-5.0); ALKALINE PHOSPHATASE 198 U/L (38-126); ANION GAP 7.9 MEQ/L (5-15); BLOOD UREA NITROGEN 14 mg/dL (7-17); CHLORIDE 100 mmol/L (98-107); Calcium 8.8 mg/dL (8.4-10.2); Carbon Dioxide 25 mmol/L (22-30); Creatinine 1 0.52 mg/dL (0.52-1.04); EST GLOMERULAR FILTRATION RATE > 60.0 ML/MIN; Glucose 103 mg/dL (74-106); Potassium 3.2 mmol/L (3.5-5.1); SGOT/AST 18 U/L (14-36); SGPT/ALT 16 U/L (0-35); SODIUM 129 mmol/L (137-145)
[2022-09-25 04:35] LABS: Absolute Neutrophil Ct (ANC) 5.62 x10^3/uL (1.4-6.9); Basophil (Absolute #) 0.08 x10^3/uL (0-0.4); Hematocrit 37.5 % (35-47); Lymphocyte (Absolute #) 2.75 x10^3/uL (1.0-4.6); Lymphocytes % 27.4 % (24.0-44.0); Mean Cell Volume 93.1 fL (78-100); Mean Corpuscular Hemoglobin 29.8 pg (26-32); Mean Platelet Volume 9.8 fL (7.5-11.0); Monocyte (Absolute #) 1.12 x10^3/uL (0.0-1.3); Monocytes % 11.1 % (0.0-12.0); Neutrophil % 55.9 % (36.0-66.0); Platelet Count 442 x10^3/uL (150-450); Red Blood Count 4.03 x10^6/uL (4.1-5.4); Red Cell Distribution Width 13.5 % (11.5-14.0); White Blood Count 10.1 x10^3/uL (4.0-10.5)
[2022-09-25] MEDS: Sodium Chloride 0.9% 1000 ML 1,000 ML IV SCH (06:49)
[2022-09-25] MEDS ORDERED: PATIENT OWN MEDICATION IH PRN (07:00)
[2022-09-25 07:16] VITALS: BP 123/61
[2022-09-25] MEDS ORDERED: PROTONIX 40 MG IV IV SCH (10:00)
[2022-09-25] MEDS ORDERED: FLUZONE QUAD 2022-2023 SYRINGE IM ONE (10:00)
[2022-09-25] MEDS ORDERED: Klor Con PO ONE (10:06)
[2022-09-25] MEDS ORDERED: BUSPAR 5 MG PO SCH (11:00)
[2022-09-25] MEDS ORDERED: Protonix 40MG Tablet PO SCH (11:00)
[2022-09-25] MEDS ORDERED: SYNTHROID 50 MCG PO SCH (11:00)
[2022-09-25] MEDS ORDERED: NORVASC 5 MG PO SCH (11:00)
[2022-09-25] MEDS ORDERED: CLARITIN 10 MG PO SCH (11:00)
[2022-09-25] MEDS ORDERED: Klor Con PO SCH (11:00)
[2022-09-25] MEDS ORDERED: ZOLOFT 50 MG TABLET PO SCH (11:00)
[2022-09-25] MEDS ORDERED: VITAMIN B-1 100 MG PO SCH (11:00)
[2022-09-25] MEDS ORDERED: FOLATE 1 MG PO SCH (11:00)
[2022-09-25 11:58] VITALS: PULSE 97; O2SAT 96
[2022-09-25] MEDS ORDERED: NON-FORMULARY ITEM (Buspirone Hcl [Buspirone Hcl] 30 MG Tablet) PO SCH (22:00)
[2022-09-25] MEDS ORDERED: ZOCOR 20MG PO SCH (22:00)
[2022-09-25] MEDS ORDERED: NON-FORMULARY ITEM (Pravastatin Sodium [Pravastatin Sodium] 40 MG Tablet) PO SCH (22:00)
[2022-09-26] MEDS ORDERED: NON-FORMULARY ITEM (Cetirizine Hcl [Allergy Relief] 10 MG Capsule) PO SCH (10:00)
== END 2022-09-25 13:10 | disposition home or self-care (01) ==
LOC: ED 18:50 → MED SURG 22:14
PROVIDERS: ADMIT Family Medicine; ATTEND Family Medicine
DX: R07.9 Chest pain, unspecified (principal); I10 Essential (primary) hypertension; E78.5 Hyperlipidemia, unspecified; E03.9 Hypothyroidism, unspecified; Z79.899 Other long term (current) drug therapy; Z72.0 Tobacco use
CPT/HCPCS: 0241U; 36000; 36415; 71045; 80053; 82550; 83880; 84484; 85025; 85379; 93005; 93041; 93268; 94760; 96374; 96375; 99285; G0378; J2060; J2270; J2405; A9270-GY

== ENCOUNTER 2022-09-26 11:08 | Observation (INO) | payer OTHER ==
[2022-09-26 11:29] LABS: Absolute Neutrophil Ct (ANC) 6.17 x10^3/uL (1.4-6.9); Basophil (Absolute #) 0.12 x10^3/uL (0-0.4); Eosinophil (Absolute #) 0.39 x10^3/uL (0-0.5); Hematocrit 38.6 % (35-47); Hemoglobin 12.6 g/dL (12.0-16.0); Lymphocyte (Absolute #) 2.05 x10^3/uL (1.0-4.6); Lymphocytes % 21.1 % (24.0-44.0); Mean Cell Volume 91.7 fL (78-100); Mean Corpuscular Hemoglobin 29.9 pg (26-32); Mean Corpuscular Hgb Concent. 32.6 g/dL (32-36); Mean Platelet Volume 10.1 fL (7.5-11.0); Monocyte (Absolute #) 0.92 x10^3/uL (0.0-1.3); Monocytes % 9.5 % (0.0-12.0); Neutrophil % 63.7 % (36.0-66.0); Platelet Count 418 x10^3/uL (150-450); Red Blood Count 4.21 x10^6/uL (4.1-5.4); Red Cell Distribution Width 13.7 % (11.5-14.0); White Blood Count 9.7 x10^3/uL (4.0-10.5)
--- NOTE | 2022-09-26 11:48 | ERPHSYRPT ---
- History of Present Illness Time Seen by Provider: 09/26/22 11:15 Historian: patient Exam Limitations: no limitations Patient Subjective Stated Complaint: C/O chest pain all morning long. States, "I might have had pain yesterday too but I can't really remember my yesterday." Triage Nursing Assessment: Patient brought into ED in a w/c. She was wheeled over to the ED from ultrasound here at the hospital. Patient was in radiology for an abdominal ultrasound when she reported to staff that she was having chest pain. Patient is alert and oriented. She is anxious and speaking rapidly. No SOB; 02 sats 100% on room air. Skin tone normal. Afebrile. Timing/Duration: today Activities at Onset: none Quality: aching Location: substernal Chest Pain Radiation: no radiation Severity of Pain-Max: moderate Severity of Pain-Current: mild Modifying Factors: Improves With: nothing Associated Symptoms: denies symptoms Prior Chest Pain/Cardiac Workup: angina Nitro Today/Relief: no nitro taken today Aspirin Treatment Today: no aspirin today Allergies/Adverse Reactions: No Known Drug Allergies Allergy (Verified 09/26/22 11:08) Home Medications: Levothyroxine Sodium 50 Mcg [Synthroid 50 Mcg] 50 mcg PO DAILY 08/15/22 [History] Amlodipine Besylate 5 mg PO DAILY 08/16/22 [History] Cetirizine HCl [Allergy Relief] 10 mg PO DAILY 08/16/22 [History] Pravastatin Sodium 40 mg PO HS 08/16/22 [History] Buspirone HCl 15 mg PO BID 09/24/22 [History] Folic Acid 1 mg PO DAILY 09/24/22 [History] Sertraline HCl 50 mg [Zoloft 50 mg Tablet] 50 mg PO DAILY 09/24/22 [History] Thiamine HCl 100 mg [Vitamin B-1 100 mg] 100 mg PO DAILY 09/24/22 [History] Urea [Ure-Na] 15 g PO BID 09/26/22 [History] Hx Tetanus, Diphtheria Vaccination/Date Given: Yes Hx Influenza Vaccination/Date Given: Yes (08/17/22) Hx Pneumococcal Vaccination/Date Given: No Immunizations Up to Date: Yes Travel Risk - International Travel Have you traveled outside of the country in past 3 weeks: No - Coronavirus Screening Are you exhibiting any of the following symptoms?: No Close contact with a COVID-19 positive Pt in past 14-21 Days: No - Vaccine Status Have you recieved a Covid-19 vaccination: Yes Consultant Technology: Unknown - Vaccination Dates Date of 2cond Vaccination (if applicable): 2020 Dates if Unknown: UNK - Review of Systems Constitutional: No Symptoms, No Fever, No Chills Eyes: No Symptoms Ears, Nose, & Throat: No Symptoms Respiratory: No Symptoms, No Cough, No Dyspnea Cardiac: No Symptoms, No Chest Pain, No Edema, No Syncope Abdominal/Gastrointestinal: No Symptoms, No Abdominal Pain, No Nausea, No Vomiting, No Diarrhea Genitourinary Symptoms: No Symptoms, No Dysuria Musculoskeletal: No Symptoms, No Back Pain, No Neck Pain Skin: No Symptoms, No Rash Neurological: No Symptoms, No Dizziness, No Focal Weakness, No Sensory Changes Psychological: No Symptoms Endocrine: No Symptoms Hematologic/Lymphatic: No Symptoms Immunological/Allergic: No Symptoms All Other Systems: Reviewed and Negative - Past Medical History Pertinent Past Medical History: Yes Neurological History: Migraines, Seizures ENT History: No Pertinent History Cardiac History: High Cholesterol, Hypertension Respiratory History: COPD Endocrine Medical History: Hypothyroidism Musculoskeletal History: Arthritis GI Medical History: GERD History: No Pertinent History Psycho-Social History: Anxiety, Depression Female Reproductive Disorders: No Pertinent History Other Medical History: pt poor historian, seizures from withdrawal 08/2022 - Past Surgical History Past Surgical History: No - Social History Smoking Status: Former smoker Exposure to second hand smoke: No Drug Use: none Patient Lives Alone: No - Nursing Vital Signs Nursing Vital Signs: Initial Vital Signs Temperature 97.7 F 09/26/22 11:09 Pulse Rate 100 H 09/26/22 11:09 Respiratory Rate 25 H 09/26/22 11:09 Blood Pressure 138/93 09/26/22 11:09 O2 Sat by Pulse Oximetry 100 09/26/22 11:09 Pain Scale Pain Intensity 4 - Physical Exam General Appearance: no apparent distress, alert Eye Exam: PERRL/EOMI, eyes nml inspection Ears, Nose, Throat Exam: normal ENT inspection, TMs normal, pharynx normal, moist mucous membranes Neck Exam: normal inspection, non-tender, supple, full range of motion Respiratory Exam: normal breath sounds, lungs clear, airway intact, No respiratory distress Cardiovascular Exam: regular rate/rhythm, normal heart sounds, normal peripheral pulses Gastrointestinal/Abdomen Exam: soft, normal bowel sounds, No tenderness, No mass Back Exam: normal inspection, No CVA tenderness, No vertebral tenderness Extremity Exam: normal inspection, normal range of motion Neurologic Exam: alert, oriented x 3, cooperative, normal mood/affect, sensation nml, No motor deficits Skin Exam: normal color, warm, dry SpO2 Interpretation: normal SpO2: 100 O2 Delivery: Room Air - Course Nursing assessment & vital signs reviewed: Yes EKG Interpreted by Me: RATE (99), Sinus Rhythm, NORMAL AXIS, NORMAL INTERVALS (Abnormal T waves consider ischemia, lateral leads) Ordered Tests: Active Orders 24 hr Category Date Time Status Wind Turbine Installer STAT Care 09/26/22 11:24 Active EKG-ER Only STAT Care 09/26/22 11:24 Active IV Insertion STAT Care 09/26/22 11:24 Active Pulse Oximetry (ED) STAT Care 09/26/22 11:24 Active CHEST 1 VIEW (PORTABLE) Stat Exams 09/26/22 11:46 Completed CBC W DIFF Stat Lab 09/26/22 11:23 Completed CMP Stat Lab 09/26/22 11:23 Completed D-DIMER QUANTITATIVE Stat Lab 09/26/22 11:55 Completed PROTIME WITH INR Stat Lab 09/26/22 11:55 Completed PTT Stat Lab 09/26/22 11:55 Completed PTT Stat Lab 09/26/22 18:00 Received TROPONIN Q4H Lab 09/26/22 11:23 Completed TROPONIN Q4H Lab 09/26/22 15:30 Completed TROPONIN Q4H Lab 09/26/22 19:30 Ordered Transfer Order Routine Transfer 09/26/22 Ordered Medication Summary Generic Name Dose Route Start Last Admin Trade Name Freq PRN Reason Stop Dose Admin Nitroglycerin/Dextrose 250 mls @ 1.5 mls/hr 09/26/22 11:52 09/26/22 12:12 Ntg 0.2mg/Ml In D5w Glass IV 10/26/22 11:51 5 mcg/min .Q24H PRN 1.5 mls/hr CHEST PAIN Administration Protocol 5 MCG/MIN Discontinued Medications Generic Name Dose Route Start Last Admin Trade Name Freq PRN Reason Stop Dose Admin Aspirin 324 mg 09/26/22 11:57 09/26/22 12:03 Aspirin 81 Mg Tab.Chew PO 09/26/22 11:58 324 mg STAT ONE Administration Aspirin Confirm 09/26/22 12:02 Aspirin 81 Mg Tab.Chew Administered 09/26/22 12:03 Dose 324 mg .ROUTE .STK-MED ONE Heparin Sodium (Beef Lung) 5,000 unit 09/26/22 13:25 09/26/22 13:26 Heparin 5000 Units/0.5 Ml 5,000 Unit/0.5 Ml Syr IV 09/26/22 13:26 5,000 unit STAT ONE Administration Heparin Sodium (Beef Lung) Confirm 09/26/22 13:23 Heparin 5000 Units/0.5 Ml 5,000 Unit/0.5 Ml Syr Administered 09/26/22 13:24 Dose 5,000 unit .ROUTE .STK-MED ONE Nitroglycerin/Dextrose Confirm 09/26/22 12:10 Ntg 0.2mg/Ml In D5w Glass Administered 09/26/22 12:11 Dose 250 mls @ ud IV .STK-MED ONE Heparin Sodium/Dextrose Confirm 09/26/22 13:24 Heparin 25,000 Units/D5w: Use Order Set Trell Administered 09/26/22 13:25 Dose 25,000 units in 250 mls @ ud IV .STK-MED ONE Morphine Sulfate 2 mg 09/26/22 12:01 09/26/22 12:04 Morphine Sulfate 2 Mg/Ml Inj IV 09/26/22 12:02 2 mg STAT ONE Administration Morphine Sulfate Confirm 09/26/22 12:03 Morphine Sulfate 2 Mg/Ml Inj Administered 09/26/22 12:04 Dose 2 mg .ROUTE .STK-MED ONE Morphine Sulfate 4 mg 09/26/22 13:25 09/26/22 13:27 Morphine Sulfate 4 Mg/Ml Injection IV 09/26/22 13:26 4 mg STAT ONE Administration Morphine Sulfate Confirm 09/26/22 13:26 Morphine Sulfate 4 Mg/Ml Injection Administered 09/26/22 13:27 Dose 4 mg .ROUTE .STK-MED ONE Lab/Rad Data: Laboratory Result Diagrams 09/26/22 11:23 09/26/22 11:23 Laboratory Results 09/26/22 09/26/22 09/26/22 Range/Units Unknown 16:35 15:30 WBC (4.0-10.5) x10^3/uL RBC (4.1-5.4) x10^6/uL Hgb (12.0-16.0) g/dL Hct (35-47) % MCV (78-100) fL MCH (26-32) pg MCHC (32-36) g/dL RDW (11.5-14.0) % Plt Count (150-450) x10^3/uL MPV (7.5-11.0) fL Gran % (36.0-66.0) % Immature Gran % (Auto) (0.00-0.4) % Nucleat RBC Rel Count (0.00-0.1) % Eos # (Auto) (0-0.5) x10^3/uL Immature Gran # (Auto) (0.00-0.03) x10^3u/L Absolute Lymphs (auto) (1.0-4.6) x10^3/uL Absolute Monos (auto) (0.0-1.3) x10^3/uL Absolute Nucleated RBC (0.00-0.01) x10^3u/L Lymphocytes % (24.0-44.0) % Monocytes % (0.0-12.0) % Eosinophils % (0.00-5.0) % Basophils % (0.0-0.4) % Absolute Granulocytes (1.4-6.9) x10^3/uL Basophils # (0-0.4) x10^3/uL PT (9.4-12.5) SECONDS INR (0.8-3.0) APTT Cancelled (25.1-36.5) SECONDS D-Dimer (0.0-0.50) mg/L Sodium (137-145) mmol/L Potassium (3.5-5.1) mmol/L Chloride (98-107) mmol/L Carbon Dioxide (22-30) mmol/L Anion Gap (5-15) MEQ/L BUN (7-17) mg/dL Creatinine (0.52-1.04) mg/dL Estimated GFR ML/MIN Glucose (74-106) mg/dL Calcium (8.4-10.2) mg/dL Total Bilirubin (0.2-1.3) mg/dL AST (14-36) U/L ALT (0-35) U/L Alkaline Phosphatase (38-126) U/L Troponin I < 0.012 (0.000-0.034) ng/mL Serum Total Protein (6.3-8.2) g/dL Albumin (3.5-5.0) g/dL Influenza Type A Ag NEGATIVE (NEGATIVE) Influenza Type B Ag NEGATIVE (NEGATIVE) RSV (PCR) NEGATIVE (Negative) SARS-CoV-2 (PCR) NEGATIVE (NEGATIVE) 09/26/22 09/26/22 09/26/22 Range/Units 11:55 11:23 11:23 WBC (4.0-10.5) x10^3/uL RBC (4.1-5.4) x10^6/uL Hgb (12.0-16.0) g/dL Hct (35-47) % MCV (78-100) fL MCH (26-32) pg MCHC (32-36) g/dL RDW (11.5-14.0) % Plt Count (150-450) x10^3/uL MPV (7.5-11.0) fL Gran % (36.0-66.0) % Immature Gran % (Auto) (0.00-0.4) % Nucleat RBC Rel Count (0.00-0.1) % Eos # (Auto) (0-0.5) x10^3/uL Immature Gran # (Auto) (0.00-0.03) x10^3u/L Absolute Lymphs (auto) (1.0-4.6) x10^3/uL Absolute Monos (auto) (0.0-1.3) x10^3/uL Absolute Nucleated RBC (0.00-0.01) x10^3u/L Lymphocytes % (24.0-44.0) % Monocytes % (0.0-12.0) % Eosinophils % (0.00-5.0) % Basophils % (0.0-0.4) % Absolute Granulocytes (1.4-6.9) x10^3/uL Basophils # (0-0.4) x10^3/uL PT 11.8 (9.4-12.5) SECONDS INR 1.13 (0.8-3.0) APTT 30.4 (25.1-36.5) SECONDS D-Dimer < 0.19 (0.0-0.50) mg/L Sodium 129 L (137-145) mmol/L Potassium 3.7 (3.5-5.1) mmol/L Chloride 102 (98-107) mmol/L Carbon Dioxide 19 L (22-30) mmol/L Anion Gap 11.9 (5-15) MEQ/L BUN 29 H (7-17) mg/dL Creatinine 0.40 L (0.52-1.04) mg/dL Estimated GFR > 60.0 ML/MIN Glucose 109 H (74-106) mg/dL Calcium 9.2 (8.4-10.2) mg/dL Total Bilirubin 0.40 (0.2-1.3) mg/dL AST 20 (14-36) U/L ALT 15 (0-35) U/L Alkaline Phosphatase 235 H (38-126) U/L Troponin I < 0.012 (0.000-0.034) ng/mL Serum Total Protein 7.0 (6.3-8.2) g/dL Albumin 3.4 L (3.5-5.0) g/dL Influenza Type A Ag (NEGATIVE) Influenza Type B Ag (NEGATIVE) RSV (PCR) (Negative) SARS-CoV-2 (PCR) (NEGATIVE) 09/26/22 Range/Units 11:23 WBC 9.7 (4.0-10.5) x10^3/uL RBC 4.21 (4.1-5.4) x10^6/uL Hgb 12.6 (12.0-16.0) g/dL Hct 38.6 (35-47) % MCV 91.7 (78-100) fL MCH 29.9 (26-32) pg MCHC 32.6 (32-36) g/dL RDW 13.7 (11.5-14.0) % Plt Count 418 (150-450) x10^3/uL MPV 10.1 (7.5-11.0) fL Gran % 63.7 (36.0-66.0) % Immature Gran % (Auto) 0.5 H (0.00-0.4) % Nucleat RBC Rel Count 0.0 (0.00-0.1) % Eos # (Auto) 0.39 (0-0.5) x10^3/uL Immature Gran # (Auto) 0.05 H (0.00-0.03) x10^3u/L Absolute Lymphs (auto) 2.05 (1.0-4.6) x10^3/uL Absolute Monos (auto) 0.92 (0.0-1.3) x10^3/uL Absolute Nucleated RBC 0.00 (0.00-0.01) x10^3u/L Lymphocytes % 21.1 L (24.0-44.0) % Monocytes % 9.5 (0.0-12.0) % Eosinophils % 4.0 (0.00-5.0) % Basophils % 1.2 (0.0-0.4) % Absolute Granulocytes 6.17 (1.4-6.9) x10^3/uL Basophils # 0.12 (0-0.4) x10^3/uL PT (9.4-12.5) SECONDS INR (0.8-3.0) APTT (25.1-36.5) SECONDS D-Dimer (0.0-0.50) mg/L Sodium (137-145) mmol/L Potassium (3.5-5.1) mmol/L Chloride (98-107) mmol/L Carbon Dioxide (22-30) mmol/L Anion Gap (5-15) MEQ/L BUN (7-17) mg/dL Creatinine (0.52-1.04) mg/dL Estimated GFR ML/MIN Glucose (74-106) mg/dL Calcium (8.4-10.2) mg/dL Total Bilirubin (0.2-1.3) mg/dL AST (14-36) U/L ALT (0-35) U/L Alkaline Phosphatase (38-126) U/L Troponin I (0.000-0.034) ng/mL Serum Total Protein (6.3-8.2) g/dL Albumin (3.5-5.0) g/dL Influenza Type A Ag (NEGATIVE) Influenza Type B Ag (NEGATIVE) RSV (PCR) (Negative) SARS-CoV-2 (PCR) (NEGATIVE) - Progress Progress: improved Air Movement: good Progress Note: I spoke to María who advised starting patient on heparin, nitro and aspirin after reviewing patient's EKGs. 09/26/22 12:[address] Lan at [facility] who declined transfer as they only have ICU beds available. He states that per their criteria our patient is not a candidate for their ICU bed. 09/26/22 13:[address] Gutierrez yi at [facility] who accepts transfer. Plan of care discussed with patient. She agrees to transfer to [facility] for further evaluation and treatment. Portions of this note were created with voice recognition technology. There may be grammatical, spelling, punctuation or sound alike errors 09/26/22 18:42 [facility] advises that they do not have any beds currently available. Case discussed with Dr. Díaz who accepts admission to observation. Patient will be admitted to Dr. Rinku juarez. Patient agrees to admission [facility] for further ev aluation and treatment. Blood Culture(s) Obtained: No Antibiotics given: No Counseled pt/family regarding: lab results, diagnosis, need for follow-up, rad results - Departure Departure Disposition: Observation Clinical Impression: Elevated alkaline phosphatase level, Hyponatremia, ACS (acute coronary syndrome), Morgagni hernia, Lung granuloma Condition: Stable Critical Care Time: No Referrals: YARITZA MCFARLAND MD [Primary Care Provider] - Follow up/PCP as directed
[2022-09-26] MEDS ORDERED: Ntg 0.2MG/Ml in D5W GLASS*** 250 ML IV PRN (11:52)
[2022-09-26] MEDS ORDERED: BABY ASPIRIN 81 MG CHEW PO ONE (11:57)
[2022-09-26] MEDS ORDERED: MORPHINE SULFATE 2 MG INJ IV ONE (12:01)
[2022-09-26] MEDS ORDERED: BABY ASPIRIN 81 MG CHEW ONE (12:02)
[2022-09-26] MEDS ORDERED: MORPHINE SULFATE 2 MG INJ ONE (12:03)
[2022-09-26] MEDS ORDERED: Ntg 0.2MG/Ml in D5W GLASS*** 250 ML IV ONE (12:10)
[2022-09-26 12:20] LABS: ALBUMIN 3.4 g/dL (3.5-5.0); ALKALINE PHOSPHATASE 235 U/L (38-126); ANION GAP 11.9 MEQ/L (5-15); BLOOD UREA NITROGEN 29 mg/dL (7-17); CHLORIDE 102 mmol/L (98-107); Calcium 9.2 mg/dL (8.4-10.2); Carbon Dioxide 19 mmol/L (22-30); EST GLOMERULAR FILTRATION RATE > 60.0 ML/MIN; Glucose 109 mg/dL (74-106); Potassium 3.7 mmol/L (3.5-5.1); SGOT/AST 20 U/L (14-36); SGPT/ALT 15 U/L (0-35); SODIUM 129 mmol/L (137-145)
[2022-09-26 12:23] LABS: INFLUENZA A NEGATIVE (NEGATIVE); INFLUENZA B NEGATIVE (NEGATIVE); RESPIRATORY SYNCTIAL VIRUS NEGATIVE (Negative); SARS-CoV-2 Xpert Express NEGATIVE (NEGATIVE)
[2022-09-26 12:41] LABS: D-DIMER QUANTITATIVE < 0.19 mg/L (0.0-0.50); INR 1.13 (0.8-3.0); PROTIME 11.8 SECONDS (9.4-12.5); PTT 30.4 SECONDS (25.1-36.5)
--- NOTE | 2022-09-26 12:42 | XRAY ---
Indication: Chest pain and cough. Comparison: September 24, 2022 Portable chest again demonstrates CT proven large Morganii hernia with herniated omental fat and colon in medial right lung base less than before. Remaining heart and lungs unremarkable again with incidental left lung calcified granuloma. No new/acute findings.
[2022-09-26] MEDS ORDERED: HEPARIN 5000 UNITS/0.5 ML (HIGH RISK MED) ONE (13:23)
[2022-09-26] MEDS ORDERED: Heparin 25,000 units/D5W: USE ORDER SET PROTO 25,000 UNITS/250 ML BAG IV ONE (13:24)
[2022-09-26] MEDS ORDERED: MORPHINE SULFATE 4 MG INJ IV ONE (13:25)
[2022-09-26] MEDS ORDERED: HEPARIN 5000 UNITS/0.5 ML (HIGH RISK MED) IV ONE (13:25)
[2022-09-26] MEDS ORDERED: MORPHINE SULFATE 4 MG INJ ONE (13:26)
[2022-09-26] MEDS: Heparin 25,000 units/D5W: USE ORDER SET PROTO 25,000 UNITS/250 ML BAG IV SCH (13:30)
[2022-09-26] MEDS ORDERED: Senokot-S Tablet PO PRN (19:24)
[2022-09-26] MEDS ORDERED: MILK OF MAGNESIA 30 ML PO PRN (19:24)
[2022-09-26] MEDS ORDERED: MAALOX ES 30 ML UNIT DOSE PO PRN (19:24)
[2022-09-26] MEDS ORDERED: HEPARIN 5000 UNITS/0.5 ML (HIGH RISK MED) IV PRN ×2 (19:42)
[2022-09-26] MEDS: MORPHINE SULFATE 2 MG INJ IV PRN ×3 (19:57→22:20)
[2022-09-26] MEDS: TYLENOL 325 MG PO PRN (19:57)
[2022-09-26 20:33] LABS: Hematocrit 35.2 % (35-47); Hemoglobin 11.5 g/dL (12.0-16.0); Mean Cell Volume 92.9 fL (78-100); Mean Corpuscular Hemoglobin 30.3 pg (26-32); Mean Corpuscular Hgb Concent. 32.7 g/dL (32-36); Mean Platelet Volume 9.8 fL (7.5-11.0); Platelet Count 412 x10^3/uL (150-450); Red Blood Count 3.79 x10^6/uL (4.1-5.4); Red Cell Distribution Width 13.5 % (11.5-14.0); White Blood Count 9.7 x10^3/uL (4.0-10.5)
[2022-09-26 20:56] LABS: INR 1.18 (0.8-3.0); PROTIME 12.3 SECONDS (9.4-12.5); PTT 62.1 SECONDS (25.1-36.5)
[2022-09-27] MEDS: Ativan 2 MG/1 ML VIAL IV PRN ×3 (00:14→22:24)
[2022-09-27] MEDS: TYLENOL 325 MG PO PRN ×2 (05:45→19:44)
[2022-09-27 05:50] LABS: Hematocrit 33.8 % (35-47); Hemoglobin 10.9 g/dL (12.0-16.0); Mean Cell Volume 93.4 fL (78-100); Mean Corpuscular Hemoglobin 30.1 pg (26-32); Mean Corpuscular Hgb Concent. 32.2 g/dL (32-36); Mean Platelet Volume 9.2 fL (7.5-11.0); Platelet Count 392 x10^3/uL (150-450); Red Blood Count 3.62 x10^6/uL (4.1-5.4); Red Cell Distribution Width 13.7 % (11.5-14.0); White Blood Count 11.3 x10^3/uL (4.0-10.5)
[2022-09-27 06:41] LABS: Risk Ratio 3.5
[2022-09-27] MEDS: Carafate SUSPENSION 1000 MG/10 ML PO SCH ×4 (09:17→22:25)
[2022-09-27] MEDS ORDERED: PROTONIX 40 MG IV IV SCH (10:00)
[2022-09-27] MEDS: MORPHINE SULFATE 2 MG INJ IV PRN (10:54)
--- NOTE | 2022-09-27 13:26 | XRAY ---
Indication: Chest pain. Hernia. Multiple contiguous axial images obtained through the abdomen and pelvis prior to and following 80 cc Isovue 370 contrast as ordered. Comparison: August 24, 2022 Lung bases demonstrates minimal subsegmental atelectasis/scarring. No infiltrate or effusion. Heart not enlarged. Stable moderate size hiatal hernia with partial intrathoracic stomach and Morgagni hernia with herniated omental fat and loop of transverse colon.. Noncontrasted images demonstrates stable tiny hepatic/splenic calcified granulomas. No new visceral calcifications/calculi. Stable fatty liver. No free fluid/air. Noncontrasted stomach and bowel loops appear nonobstructed again with normal appendix. Colon now demonstrates radiopacities throughout either ingested medication, bismuth, or barium. There remains scattered colonic diverticulosis without diverticulitis. Urinary bladder demonstrates new Joe balloon catheter. Postcontrast images demonstrates normal visceral enhancement and renal excretion. Remaining liver, gallbladder, pancreas, spleen, adrenal glands, kidneys, ureters, bladder, and uterus are unremarkable. Again minimal aortoiliac calcifications. No AAA or pathologic retroperitoneal lymphadenopathy. Osseous structures demonstrates new subacute to chronic appearing T10/T11 superior endplate fractures with 25-50% height loss. Impression: 1. New subacute to chronic appearing T10/T11 superior endplate fractures. 2. Stable chronic findings including hiatal hernia with partial intrathoracic stomach, Morgagni hernia, colonic diverticulosis, fatty liver, and old granulomatous disease. 3. Remaining CT abdomen/pelvis with and without contrast exam is negative.
[2022-09-27] MEDS: Heparin 25,000 units/D5W: USE ORDER SET PROTO 25,000 UNITS/250 ML BAG IV SCH (14:35)
--- NOTE | 2022-09-27 16:54 | PCM.HP ---
History of Present Illness - Chief Complaint Chief Complaint: ACS History of Present Illness: is a 62 year old female patient of Dr Dobbs who represented to ER with substernal chest pain . Patient developed chest pain while in radiology for abdominal US. PMHx includes HTN,hypercholeste rolemia,COPD,GERD,HH,Arthritis,Hypothyroid,Migraines, seizure from withdrawl. Patient is admitted to ICU on heparin drip with Dg ACS. - Review of Systems Constitutional: No Symptoms Eyes: No Symptoms Ears, Nose, & Throat: No Symptoms Respiratory: No Symptoms Cardiac: Chest Pain Abdominal/Gastrointestinal: Other (GERD) Genitourinary Symptoms: No Symptoms Musculoskeletal: Joint Pain Skin: No Symptoms Neurological: No Symptoms Psychological: Alcohol Abuse, Anxiety, Depression Endocrine: No Symptoms Hematologic/Lymphatic: No Symptoms Immunological/Allergic: No Symptoms Medications & Allergies Home Medications: Home Medication List Levothyroxine Sodium 50 Mcg [Synthroid 50 Mcg] 50 mcg PO DAILY 08/15/22 [History Confirmed 09/26/22] Amlodipine Besylate 5 mg PO DAILY 08/16/22 [History Confirmed 09/26/22] Cetirizine HCl [Allergy Relief] 10 mg PO DAILY 08/16/22 [History Confirmed 09/26/22] Pravastatin Sodium 40 mg PO HS 08/16/22 [History Confirmed 09/26/22] PANTOPRAZOLE 40 mg Tablet [Protonix 40MG Tablet] 40 mg PO BID #60 tablet 08/18/22 [Rx Confirmed 09/26/22] Potassium Chloride [Klor-Con M10] 20 meq PO DAILY 30 Days #30 tablet 08/18/22 [Rx Confirmed 09/26/22] Buspirone HCl 15 mg PO BID 09/24/22 [History Confirmed 09/26/22] Folic Acid 1 mg PO DAILY 09/24/22 [History Confirmed 09/26/22] Sertraline HCl 50 mg [Zoloft 50 mg Tablet] 50 mg PO DAILY 09/24/22 [History Confirmed 09/26/22] Thiamine HCl 100 mg [Vitamin B-1 100 mg] 100 mg PO DAILY 09/24/22 [History Confirmed 09/26/22] Urea [Ure-Na] 15 g PO BID 09/26/22 [History Confirmed 09/26/22] Allergies/Adverse Reactions: Allergies Allergy/AdvReac Type Severity Reaction Status Date / Time No Known Drug Allergies Allergy Verified 09/26/22 11:08 - Past Medical History Past Medical History: Yes Neurological History: Migraines, Seizures ENT History: No Pertinent History Cardiac History: High Cholesterol, Hypertension Respiratory History: COPD Endocrine Medical History: Hypothyroidism Musculoskelatal History: Arthritis GI Medical History: GERD History: No Pertinent History Pyscho-Social History: Anxiety, Depression Reproductive Disorders: No Pertinent History Comment: pt poor historian, seizures from withdrawal 08/2022 - Female History Are you now?: No - Past Surgical History Past Surgical History: No - Social History Smoking Status: Former smoker Exposure to second hand smoke: No Alcohol: Daily Drug Use: none - Physical Exam Vital Signs: Vital Signs - 24 hr Temp Pulse Resp BP BP Pulse Ox 09/27/22 16:00 92 H 09/27/22 12:00 92 H 09/27/22 11:21 97.3 F 92 H 17 133/72 94 L 09/27/22 07:51 96 H 20 107/64 93 L 09/27/22 07:33 98 H 09/27/22 07:00 97.9 F 100 H 22 125/84 93 L 09/27/22 06:07 106 H 22 138/86 09/27/22 06:00 97 F 106 H 22 134/86 93 L 09/27/22 05:20 106 H 19 140/88 09/27/22 05:00 106 H 19 140/88 90 L 09/27/22 04:00 97.8 F 113 H 18 138/78 93 L 09/27/22 02:56 107 H 18 121/83 09/27/22 02:50 107 H 121/83 93 L 09/27/22 02:01 109 H 20 133/86 09/27/22 01:34 109 H 20 133/86 92 L 09/27/22 01:09 114 H 18 130/7 09/27/22 01:00 98 F 114 H 20 130/76 94 L 09/26/22 23:43 104 H 18 120/84 95 09/26/22 23:09 105 H 15 112/80 94 L 09/26/22 23:00 107 H 15 122/84 95 09/26/22 22:53 107 H 15 122/84 95 09/26/22 22:34 105 H 16 119/82 09/26/22 22:15 105 H 20 119/82 95 09/26/22 21:54 97.5 F 100 H 125/85 100 09/26/22 21:30 108 H 16 113/85 09/26/22 20:45 102 H 14 129/79 09/26/22 20:00 109 H 19 144/80 95 09/26/22 19:45 104 H 22 148/89 09/26/22 18:45 100 09/26/22 18:12 100 H 13 122/91 09/26/22 17:37 97.5 F 105 H 20 125/85 98 09/26/22 17:12 103 H 18 124/87 General Appearance: no apparent distress Neurologic Exam: alert (oriented oriented to place), cooperative, No motor deficits, No sensory deficit Eye Exam: eyes nml inspection Ears, Nose, Throat Exam: normal ENT inspection Neck Exam: normal inspection Respiratory Exam: normal breath sounds, diminished breath sounds (bases) Cardiovascular Exam: tachycardia (rate 103,regular) Gastrointestinal/Abdomen Exam: soft, tenderness (epig and LUQ), distention (epig) Back Exam: normal inspection Extremity Exam: normal inspection, other (clubbing fingers) Results - Labs Lab/Micro Results: Lab Results-Last 24 Hours 09/26/22 09/26/22 09/26/22 Range/Units 16:35 18:00 20:15 WBC (4.0-10.5) x10^3/uL RBC (4.1-5.4) x10^6/uL Hgb (12.0-16.0) g/dL Hct (35-47) % MCV (78-100) fL MCH (26-32) pg MCHC (32-36) g/dL RDW (11.5-14.0) % Plt Count (150-450) x10^3/uL MPV (7.5-11.0) fL PT (9.4-12.5) SECONDS INR (0.8-3.0) APTT Cancelled 112.3 H* Troponin I < 0.012 (0.000-0.034) ng/mL Triglycerides (30-150) mg/dL Cholesterol (50-200) mg/dL LDL Cholesterol (30-100) mg/dL HDL Cholesterol (40-60) mg/dL Heart Disease Risk Ratio 09/26/22 09/26/22 09/26/22 Range/Units 20:15 20:15 23:45 WBC 9.7 (4.0-10.5) x10^3/uL RBC 3.79 L (4.1-5.4) x10^6/uL Hgb 11.5 L (12.0-16.0) g/dL Hct 35.2 (35-47) % MCV 92.9 (78-100) fL MCH 30.3 (26-32) pg MCHC 32.7 (32-36) g/dL RDW 13.5 (11.5-14.0) % Plt Count 412 (150-450) x10^3/uL MPV 9.8 (7.5-11.0) fL PT 12.3 (9.4-12.5) SECONDS INR 1.18 (0.8-3.0) APTT 62.1 H Troponin I < 0.012 (0.000-0.034) ng/mL Triglycerides (30-150) mg/dL Cholesterol (50-200) mg/dL LDL Cholesterol (30-100) mg/dL HDL Cholesterol (40-60) mg/dL Heart Disease Risk Ratio 09/27/22 09/27/22 09/27/22 Range/Units 01:50 05:45 05:45 WBC (4.0-10.5) x10^3/uL RBC (4.1-5.4) x10^6/uL Hgb (12.0-16.0) g/dL Hct (35-47) % MCV (78-100) fL MCH (26-32) pg MCHC (32-36) g/dL RDW (11.5-14.0) % Plt Count (150-450) x10^3/uL MPV (7.5-11.0) fL PT (9.4-12.5) SECONDS INR (0.8-3.0) APTT 61.3 H Troponin I < 0.012 (0.000-0.034) ng/mL Triglycerides 132 (30-150) mg/dL Cholesterol 155 (50-200) mg/dL LDL Cholesterol 87 (30-100) mg/dL HDL Cholesterol 44 (40-60) mg/dL Heart Disease Risk Ratio 3.5 09/27/22 09/27/22 Range/Units 05:45 05:45 WBC 11.3 H (4.0-10.5) x10^3/uL RBC 3.62 L (4.1-5.4) x10^6/uL Hgb 10.9 L (12.0-16.0) g/dL Hct 33.8 L (35-47) % MCV 93.4 (78-100) fL MCH 30.1 (26-32) pg MCHC 32.2 (32-36) g/dL RDW 13.7 (11.5-14.0) % Plt Count 392 (150-450) x10^3/uL MPV 9.2 (7.5-11.0) fL PT (9.4-12.5) SECONDS INR (0.8-3.0) APTT 64.6 H Troponin I (0.000-0.034) ng/mL Triglycerides (30-150) mg/dL Cholesterol (50-200) mg/dL LDL Cholesterol (30-100) mg/dL HDL Cholesterol (40-60) mg/dL Heart Disease Risk Ratio - Radiology Impressions Radiology Exams & Impressions: Radiology Procedures Category Date Time Status ABDOMEN AND PELVIS W&WO CONTRA [CT] Routine Exams 09/27/22 12:17 Completed CHEST 1 VIEW (PORTABLE) Stat Exams 09/26/22 11:46 Completed - Other Procedures and Tests Respiratory Therapy 09/28/22 05:00 EKG DAILY 09/29/22 05:00 EKG DAILY Assessment/Plan (1) ACS (acute coronary syndrome) Current Visit: Yes Status: Acute Assessment & Plan: serial troponins not elevated,is wait listed for transfer to 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
[2022-09-27] MEDS: Klor Con PO SCH (17:27)
[2022-09-27] MEDS: SYNTHROID 50 MCG PO SCH (17:28)
[2022-09-27] MEDS: VITAMIN B-1 100 MG PO SCH (17:28)
[2022-09-27] MEDS: FOLATE 1 MG PO SCH (17:28)
[2022-09-27] MEDS: CLARITIN 10 MG PO SCH (17:28)
[2022-09-27] MEDS: NORVASC 5 MG PO SCH (17:28)
[2022-09-27] MEDS: ZOLOFT 50 MG TABLET PO SCH (17:28)
[2022-09-27] MEDS ORDERED: NON-FORMULARY ITEM (Buspirone Hcl [Buspirone Hcl] 30 MG Tablet) PO SCH (22:00)
[2022-09-27] MEDS ORDERED: NON-FORMULARY ITEM (Pravastatin Sodium [Pravastatin Sodium] 40 MG Tablet) PO SCH (22:00)
[2022-09-27] MEDS: URE-NA PO SCH (22:23)
[2022-09-27] MEDS: ZOCOR 20MG PO SCH (22:24)
[2022-09-27] MEDS: BUSPAR 5 MG PO SCH (22:24)
[2022-09-27] MEDS: Protonix 40MG Tablet PO SCH (22:24)
[2022-09-28 05:01] LABS: Absolute Neutrophil Ct (ANC) 3.76 x10^3/uL (1.4-6.9); Basophil (Absolute #) 0.08 x10^3/uL (0-0.4); Hematocrit 34.3 % (35-47); Lymphocyte (Absolute #) 2.02 x10^3/uL (1.0-4.6); Lymphocytes % 27.1 % (24.0-44.0); Mean Corpuscular Hemoglobin 29.8 pg (26-32); Mean Corpuscular Hgb Concent. 32.1 g/dL (32-36); Mean Platelet Volume 9.8 fL (7.5-11.0); Monocyte (Absolute #) 0.95 x10^3/uL (0.0-1.3); Monocytes % 12.7 % (0.0-12.0); Neutrophil % 50.4 % (36.0-66.0); Platelet Count 401 x10^3/uL (150-450); Red Blood Count 3.69 x10^6/uL (4.1-5.4); Red Cell Distribution Width 13.5 % (11.5-14.0); White Blood Count 7.5 x10^3/uL (4.0-10.5)
[2022-09-28 05:33] LABS: ALKALINE PHOSPHATASE 175 U/L (38-126); ANION GAP 6.9 MEQ/L (5-15); BLOOD UREA NITROGEN 16 mg/dL (7-17); CHLORIDE 101 mmol/L (98-107); Calcium 8.6 mg/dL (8.4-10.2); Carbon Dioxide 25 mmol/L (22-30); Creatinine 1 0.38 mg/dL (0.52-1.04); EST GLOMERULAR FILTRATION RATE > 60.0 ML/MIN; Glucose 109 mg/dL (74-106); Potassium 3.3 mmol/L (3.5-5.1); SGOT/AST 23 U/L (14-36); SGPT/ALT 16 U/L (0-35); SODIUM 129 mmol/L (137-145); Total Protein 6.1 g/dL (6.3-8.2)
[2022-09-28] MEDS: Ativan 2 MG/1 ML VIAL IV PRN ×2 (07:00→17:18)
[2022-09-28] MEDS: Carafate SUSPENSION 1000 MG/10 ML PO SCH ×4 (08:25→22:43)
[2022-09-28] MEDS ORDERED: NON-FORMULARY ITEM (Cetirizine Hcl [Allergy Relief] 10 MG Capsule) PO SCH (10:00)
[2022-09-28] MEDS: BUSPAR 5 MG PO SCH ×2 (10:14→22:42)
[2022-09-28] MEDS: CLARITIN 10 MG PO SCH (10:14)
[2022-09-28] MEDS: FOLATE 1 MG PO SCH (10:14)
[2022-09-28] MEDS: Klor Con PO SCH (10:14)
[2022-09-28] MEDS: Protonix 40MG Tablet PO SCH ×2 (10:15→22:43)
[2022-09-28] MEDS: SYNTHROID 50 MCG PO SCH (10:15)
[2022-09-28] MEDS: VITAMIN B-1 100 MG PO SCH (10:15)
[2022-09-28] MEDS: URE-NA PO SCH ×2 (10:15→22:43)
[2022-09-28] MEDS: ZOLOFT 50 MG TABLET PO SCH (10:15)
[2022-09-28] MEDS: NORVASC 5 MG PO SCH (10:15)
[2022-09-28] MEDS: MORPHINE SULFATE 2 MG INJ IV PRN ×2 (11:10→15:26)
--- NOTE | 2022-09-28 13:51 | PCM.CONS ---
History of Present Illness - Reason for Consult Chief Complaint: ACS Requesting Provider: YARITZA MCFARLAND Consulting Provider: KESHA SMITH MD History of Present Illness: is a 62 year old female. hx per chart review and d/w primary 62yo female difficult to get much history states she was recently in the hospital and had a seizer. this wasn't at this hospital and it seems like she had extensive ETOh history and had withdrawal seizure. she says she has bad dementia and can't remember weeke to week. but states she gets this twinge of pain in her chest can get up to a 4-5/10 in severerity. this has been going on for maybe weeks. to ED. cardiac workup negative. 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 No N/V. had a normal BM yesterday. + flatus today. pain is essentially gone today maybe a little discomfort. no other complaints. "History of Present Illness: is a 62 year old female patient of Dr Mcfarland who represented to ER with substernal chest pain . Patient developed chest pain while in radiology for abdominal US. PMHx includes HTN,hypercholesterolemia,COPD,GERD,HH,Arthritis,Hypothyroid,Migraines, seizure from withdrawl. Patient is admitted to ICU on heparin drip with Dg ACS. - Review of Systems Constitutional: No Symptoms Eyes: No Symptoms Ears, Nose, & Throat: No Symptoms Respiratory: No Symptoms Cardiac: Chest Pain Abdominal/Gastrointestinal: Other (GERD) Genitourinary Symptoms: No Symptoms Musculoskeletal: Joint Pain Skin: No Symptoms Neurological: No Symptoms Psychological: Alcohol Abuse, Anxiety, Depression Endocrine: No Symptoms Hematologic/Lymphatic: No Symptoms Immunological/Allergic: No Symptoms Medications & Allergies Home Medications: Home Medication List Levothyroxine Sodium 50 Mcg [Synthroid 50 Mcg] 50 mcg PO DAILY 08/15/22 [History Confirmed 09/26/22] Amlodipine Besylate 5 mg PO DAILY 08/16/22 [History Confirmed 09/26/22] Cetirizine HCl [Allergy Relief] 10 mg PO DAILY 08/16/22 [History Confirmed 09/26/22] Pravastatin Sodium 40 mg PO HS 08/16/22 [History Confirmed 09/26/22] PANTOPRAZOLE 40 mg Tablet [Protonix 40MG Tablet] 40 mg PO BID #60 tablet 08/18/22 [Rx Confirmed 09/26/22] Potassium Chloride [Klor-Con M10] 20 meq PO DAILY 30 Days #30 tablet 08/18/22 [Rx Confirmed 09/26/22] Buspirone HCl 15 mg PO BID 09/24/22 [History Confirmed 09/26/22] Folic Acid 1 mg PO DAILY 09/24/22 [History Confirmed 09/26/22] Sertraline HCl 50 mg [Zoloft 50 mg Tablet] 50 mg PO DAILY 09/24/22 [History Confirmed 09/26/22] Thiamine HCl 100 mg [Vitamin B-1 100 mg] 100 mg PO DAILY 09/24/22 [History Confirmed 09/26/22] Urea [Ure-Na] 15 g PO BID 09/26/22 [History Confirmed 09/26/22] Allergies/Adverse Reactions: Allergies Allergy/AdvReac Type Severity Reaction Status Date / Time No Known Drug Allergies Allergy Verified 09/26/22 11:08 - Past Medical History Past Medical History: Yes Neurological History: Migraines, Seizures ENT History: No Pertinent History Cardiac History: High Cholesterol, Hypertension Respiratory History: COPD Endocrine Medical History: Hypothyroidism Musculoskelatal History: Arthritis GI Medical History: GERD History: No Pertinent History Pyscho-Social History: Anxiety, Depression Reproductive Disorders: No Pertinent History Comment: pt poor historian, seizures from withdrawal 08/2022 - Female History Are you now?: No - Past Surgical History Past Surgical History: No - Social History Smoking Status: Former smoker Exposure to second hand smoke: No Alcohol: Daily Drug Use: none" Medications & Allergies Home Medications: Home Medication List Levothyroxine Sodium 50 Mcg [Synthroid 50 Mcg] 50 mcg PO DAILY 08/15/22 [History Confirmed 09/26/22] Amlodipine Besylate 5 mg PO DAILY 08/16/22 [History Confirmed 09/26/22] Cetirizine HCl [Allergy Relief] 10 mg PO DAILY 08/16/22 [History Confirmed 09/26/22] Pravastatin Sodium 40 mg PO HS 08/16/22 [History Confirmed 09/26/22] PANTOPRAZOLE 40 mg Tablet [Protonix 40MG Tablet] 40 mg PO BID #60 tablet 08/18/22 [Rx Confirmed 09/26/22] Potassium Chloride [Klor-Con M10] 20 meq PO DAILY 30 Days #30 tablet 08/18/22 [Rx Confirmed 09/26/22] Buspirone HCl 15 mg PO BID 09/24/22 [History Confirmed 09/26/22] Folic Acid 1 mg PO DAILY 09/24/22 [History Confirmed 09/26/22] Sertraline HCl 50 mg [Zoloft 50 mg Tablet] 50 mg PO DAILY 09/24/22 [History Confirmed 09/26/22] Thiamine HCl 100 mg [Vitamin B-1 100 mg] 100 mg PO DAILY 09/24/22 [History Confirmed 09/26/22] Urea [Ure-Na] 15 g PO BID 09/26/22 [History Confirmed 09/26/22] Meloxicam 7.5 mg PO DAILY 10 Days #10 tablet 09/28/22 [Rx] Allergies/Adverse Reactions: Allergies Allergy/AdvReac Type Severity Reaction Status Date / Time No Known Drug Allergies Allergy Verified 09/26/22 11:08 - Past Medical History Past Medical History: Yes Neurological History: Migraines, Seizures ENT History: No Pertinent History Cardiac History: High Cholesterol, Hypertension Respiratory History: COPD Endocrine Medical History: Hypothyroidism Musculoskelatal History: Arthritis GI Medical History: GERD History: No Pertinent History Pyscho-Social History: Anxiety, Depression Reproductive Disorders: No Pertinent History Comment: pt poor historian, seizures from withdrawal 08/2022 - Female History Are you now?: No - Past Surgical History Past Surgical History: No - Social History Smoking Status: Former smoker Exposure to second hand smoke: No Alcohol: Daily Drug Use: none - Physical Exam Vital Signs: Vital Signs - 24 hr Temp Pulse Resp BP Pulse Ox 09/28/22 11:34 97.9 F 109 H 16 141/71 95 09/28/22 07:38 97.9 F 107 H 16 138/73 93 L 09/28/22 04:00 97.7 F 108 H 20 147/67 95 09/27/22 23:57 97.7 F 95 H 18 132/65 95 09/27/22 22:24 100 H 20 09/27/22 20:00 98.4 F 103 H 19 134/75 98 09/27/22 16:00 97.9 F 101 H 23 162/72 96 General Appearance: no apparent distress Neurologic Exam: alert, oriented x 3 Eye Exam: eyes nml inspection, No scleral icterus Ears, Nose, Throat Exam: moist mucous membranes Neck Exam: normal inspection Respiratory Exam: other (pursed lip breathing), No respiratory distress Cardiovascular Exam: regular rate/rhythm, capillary refill <2 sec Gastrointestinal/Abdomen Exam: soft, No tenderness, No distention, No mass Pelvic Exam: not done Rectal Exam: deferred Extremity Exam: normal inspection Skin Exam: normal color, warm, dry Results - Labs Lab/Micro Results: Lab Results-Last 24 Hours 09/28/22 09/28/22 Range/Units 05:05 05:05 WBC 7.5 (4.0-10.5) x10^3/uL RBC 3.69 L (4.1-5.4) x10^6/uL Hgb 11.0 L (12.0-16.0) g/dL Hct 34.3 L (35-47) % MCV 93.0 (78-100) fL MCH 29.8 (26-32) pg MCHC 32.1 (32-36) g/dL RDW 13.5 (11.5-14.0) % Plt Count 401 (150-450) x10^3/uL MPV 9.8 (7.5-11.0) fL Gran % 50.4 (36.0-66.0) % Immature Gran % (Auto) 0.7 H (0.00-0.4) % Nucleat RBC Rel Count 0.0 (0.00-0.1) % Eos # (Auto) 0.60 H (0-0.5) x10^3/uL Immature Gran # (Auto) 0.05 H (0.00-0.03) x10^3u/L Absolute Lymphs (auto) 2.02 (1.0-4.6) x10^3/uL Absolute Monos (auto) 0.95 (0.0-1.3) x10^3/uL Absolute Nucleated RBC 0.00 (0.00-0.01) x10^3u/L Lymphocytes % 27.1 (24.0-44.0) % Monocytes % 12.7 H (0.0-12.0) % Eosinophils % 8.0 H (0.00-5.0) % Basophils % 1.1 (0.0-0.4) % Absolute Granulocytes 3.76 (1.4-6.9) x10^3/uL Basophils # 0.08 (0-0.4) x10^3/uL Sodium 129 L (137-145) mmol/L Potassium 3.3 L (3.5-5.1) mmol/L Chloride 101 (98-107) mmol/L Carbon Dioxide 25 (22-30) mmol/L Anion Gap 6.9 (5-15) MEQ/L BUN 16 (7-17) mg/dL Creatinine 0.38 L (0.52-1.04) mg/dL Estimated GFR > 60.0 ML/MIN Glucose 109 H (74-106) mg/dL Calcium 8.6 (8.4-10.2) mg/dL Total Bilirubin 0.30 (0.2-1.3) mg/dL AST 23 (14-36) U/L ALT 16 (0-35) U/L Alkaline Phosphatase 175 H (38-126) U/L Serum Total Protein 6.1 L (6.3-8.2) g/dL Albumin 3.0 L (3.5-5.0) g/dL - Radiology Impressions Radiology Exams & Impressions: Radiology Procedures Category Date Time Status ABDOMEN AND PELVIS W&WO CONTRA [CT] Routine Exams 09/27/22 12:17 Completed - Other Procedures and Tests Respiratory Therapy 09/29/22 05:00 EKG DAILY Assessment/Plan (1) Upper abdominal pain Current Visit: Yes Status: Acute Assessment & Plan: 62yo female with chest pain likely from morgagni hernia containing colon, also separate hiatal hernia. she has no obstructive symptoms is tolerating liquids, is having bowel movements, has mild twinges of pain, benign exam, ct with hernia containing colon without any stranding or concern for strangulation/ischemia all consistent with -symptomatic diaphgragmatic hernia containing transverse colon without acute complication. -discussed with primary. usually I would defer this complex hernia to [facility] for repair. She does not appear to have any urgent/emergent need for surgery so they would likely set her up electively and all the hospitals are full so I do not believe they would accept her given the nonacute clinical picture. -f/u within 1 week in office for us to help set her up with surgery in [facility]. -PO challenge. we need to know if she is having any concerning sx with that.
[2022-09-28] MEDS: TYLENOL 325 MG PO PRN (20:35)
[2022-09-28] MEDS: ZOCOR 20MG PO SCH (22:42)
[2022-09-29 07:20] VITALS: BP 141/77; PULSE 93; O2SAT 97
[2022-09-29] MEDS: TYLENOL 325 MG PO PRN (07:44)
[2022-09-29] MEDS: Carafate SUSPENSION 1000 MG/10 ML PO SCH (07:45)
[2022-09-29] MEDS: Klor Con PO SCH (09:33)
[2022-09-29] MEDS: VITAMIN B-1 100 MG PO SCH (09:33)
[2022-09-29] MEDS: BUSPAR 5 MG PO SCH (09:34)
[2022-09-29] MEDS: ZOLOFT 50 MG TABLET PO SCH (09:34)
[2022-09-29] MEDS: FOLATE 1 MG PO SCH (09:34)
[2022-09-29] MEDS: Protonix 40MG Tablet PO SCH (09:34)
[2022-09-29] MEDS: NORVASC 5 MG PO SCH (09:34)
[2022-09-29] MEDS: SYNTHROID 50 MCG PO SCH (09:35)
[2022-09-29] MEDS: CLARITIN 10 MG PO SCH (09:35)
[2022-09-29] MEDS: URE-NA PO SCH (09:35)
[2022-09-29] MEDS: MORPHINE SULFATE 2 MG INJ IV PRN (10:42)
== END 2022-09-29 11:29 | disposition home or self-care (01) ==
LOC: ED 11:08 → OBSVTOIN 19:14 → INTOOBSV 19:14 → ICU 19:14 → MED SURG 09-27 14:04
PROVIDERS: ADMIT General Practice; ATTEND Family Medicine
DX: I24.9 Acute ischemic heart disease, unspecified (principal); R10.10 Upper abdominal pain, unspecified; K44.9 Diaphragmatic hernia without obstruction or gangrene; I10 Essential (primary) hypertension; F10.10 Alcohol abuse, uncomplicated; J44.9 Chronic obstructive pulmonary disease, unspecified; E78.00 Pure hypercholesterolemia, unspecified; Z79.899 Other long term (current) drug therapy; Z20.828 Contact with and (suspected) exposure to other viral communicable diseases
CPT/HCPCS: 0241U; 36000; 36415; 71045; 74178; 80053; 80061; 83721; 84484; 85025; 85027; 85379; 85610; 85730; 93005; 93041; 93268; 94760; 96365; 96374; 96375; 96376; 99285; G0378; J1644; J2060; J2270; A9270-GY

== ENCOUNTER 2022-09-30 06:24 | Observation (INO) | payer OTHER ==
[2022-09-30 07:10] LABS: Absolute Neutrophil Ct (ANC) 8.46 x10^3/uL (1.4-6.9); Basophil (Absolute #) 0.06 x10^3/uL (0-0.4); Eosinophil % 3.3 % (0.00-5.0); Eosinophil (Absolute #) 0.37 x10^3/uL (0-0.5); Hematocrit 33.7 % (35-47); Lymphocyte (Absolute #) 1.55 x10^3/uL (1.0-4.6); Lymphocytes % 13.8 % (24.0-44.0); Mean Cell Volume 91.6 fL (78-100); Mean Corpuscular Hemoglobin 29.9 pg (26-32); Mean Corpuscular Hgb Concent. 32.6 g/dL (32-36); Monocyte (Absolute #) 0.75 x10^3/uL (0.0-1.3); Monocytes % 6.7 % (0.0-12.0); Platelet Count 337 x10^3/uL (150-450); Red Blood Count 3.68 x10^6/uL (4.1-5.4); Red Cell Distribution Width 13.4 % (11.5-14.0); White Blood Count 11.3 x10^3/uL (4.0-10.5)
--- NOTE | 2022-09-30 07:30 | ERPHSYRPT ---
- History of Present Illness Time Seen by Provider: 09/30/22 06:31 Historian: patient, EMS Exam Limitations: no limitations Patient Subjective Stated Complaint: ems states "Pt started having chest pain in bed that started this am." Triage Nursing Assessment: pt presents to ED via E4, pt alert and oriented x3, pt c/o sternal chest pain and epigastric pain that started this am while laying in bed, pt unsure of what time, pt anxious, respirations easy, skin pwd, lung sounds clear, vitals wnl at this time, pt afebrile Physician History: 62 yo wf w mid-sternal chest pain x 2 days. Pt released from [place] yesterday after admit for same problem. Pain does not radiate, and nothing makes it better or worse. Pain is 4/10 and described as stabbing. It is accompanied by dyspnea/nausea wo vomiting/diaphoresis. She denies h/o MN/CAD but does have HTN/hyperlipidemia/smoked 1/2 ppd until 1.5 yrs ago. Pt denies cough/coryz a/fever. Timing/Duration: other (2 days) Quality: stabbing Location: substernal Chest Pain Radiation: no radiation Severity of Pain-Max: severe Severity of Pain-Current: moderate Modifying Factors: Improves With: nothing Associated Symptoms: nausea, shortness of breath Prior Chest Pain/Cardiac Workup: non-cardiac Nitro Today/Relief: no nitro taken today Aspirin Treatment Today: no aspirin today Allergies/Adverse Reactions: No Known Drug Allergies Allergy (Verified 09/30/22 06:32) Home Medications: Levothyroxine Sodium 50 Mcg [Synthroid 50 Mcg] 50 mcg PO DAILY 08/15/22 [History] Amlodipine Besylate 5 mg PO DAILY 08/16/22 [History] Cetirizine HCl [Allergy Relief] 10 mg PO DAILY 08/16/22 [History] Pravastatin Sodium 40 mg PO HS 08/16/22 [History] Buspirone HCl 15 mg PO BID 09/24/22 [History] Folic Acid 1 mg PO DAILY 09/24/22 [History] Sertraline HCl 50 mg [Zoloft 50 mg Tablet] 50 mg PO DAILY 09/24/22 [History] Thiamine HCl 100 mg [Vitamin B-1 100 mg] 100 mg PO DAILY 09/24/22 [History] Urea [Ure-Na] 15 g PO BID 09/26/22 [History] Hx Tetanus, Diphtheria Vaccination/Date Given: Yes Hx Influenza Vaccination/Date Given: Yes (08/17/22) Hx Pneumococcal Vaccination/Date Given: No Immunizations Up to Date: Yes Travel Risk - International Travel Have you traveled outside of the country in past 3 weeks: No - Coronavirus Screening Are you exhibiting any of the following symptoms?: No Close contact with a COVID-19 positive Pt in past 14-21 Days: No - Vaccine Status Have you recieved a Covid-19 vaccination: Yes Quality Assurance Tech: Unknown - Vaccination Dates Date of 2cond Vaccination (if applicable): 2020 Dates if Unknown: UNK - Review of Systems Constitutional: No Symptoms Eyes: No Symptoms Ears, Nose, & Throat: No Symptoms Respiratory: No Symptoms, Dyspnea Cardiac: No Symptoms, Chest Pain Abdominal/Gastrointestinal: No Symptoms Genitourinary Symptoms: No Symptoms Musculoskeletal: No Symptoms Skin: No Symptoms Neurological: No Symptoms Psychological: No Symptoms Endocrine: No Symptoms Hematologic/Lymphatic: No Symptoms Immunological/Allergic: No Symptoms - Past Medical History Pertinent Past Medical History: Yes Neurological History: Migraines, Seizures ENT History: No Pertinent History Cardiac History: High Cholesterol, Hypertension Respiratory History: COPD Endocrine Medical History: Hypothyroidism Musculoskeletal History: Arthritis GI Medical History: GERD, Hernia History: No Pertinent History Psycho-Social History: Anxiety Female Reproductive Disorders: No Pertinent History Other Medical History: pt poor historian, seizures from withdrawal 08/2022 - Past Surgical History Past Surgical History: No - Social History Smoking Status: Former smoker Exposure to second hand smoke: No Drug Use: none Patient Lives Alone: No - Nursing Vital Signs Nursing Vital Signs: Initial Vital Signs Temperature 97.5 F 09/30/22 06:33 Pulse Rate 100 H 09/30/22 06:33 Respiratory Rate 15 09/30/22 06:33 Blood Pressure 110/83 09/30/22 06:33 O2 Sat by Pulse Oximetry 98 09/30/22 06:33 Pain Scale Pain Intensity 0 Mildly tachy - Physical Exam General Appearance: no apparent distress, anxiety Eye Exam: PERRL/EOMI, eyes nml inspection Ears, Nose, Throat Exam: normal ENT inspection, TMs normal, pharynx normal, moist mucous membranes Neck Exam: normal inspection, non-tender, supple, full range of motion, No meningismus, No mass, No Brudzinski, No Kernig's Respiratory Exam: normal breath sounds, lungs clear, airway intact Cardiovascular Exam: regular rate/rhythm, normal heart sounds, normal peripheral pulses, capillary refill <2 sec, No murmur Gastrointestinal/Abdomen Exam: soft, normal bowel sounds, No tenderness Back Exam: normal inspection, normal range of motion, No CVA tenderness Extremity Exam: normal inspection, normal range of motion Neurologic Exam: alert, oriented x 3, cooperative, mixer operator tablets II-XII nml as tested, normal mood/affect, nml cerebellar function, nml station & gait, sensation nml, No motor deficits, No sensory deficit Skin Exam: normal color, warm, dry Lymphatic Exam: No adenopathy SpO2 Interpretation: normal SpO2: 98 O2 Delivery: Room Air - Course Nursing assessment & vital signs reviewed: Yes EKG Interpreted by Me: RATE (NSR/Rate97/Prolonged QTc/Inverted Twaves anterolateral leads/Possible old septal MN) - Radiology Exams Chest X-ray Interpretation: Discussed w/ radiologist (Large hiatal hernia) Ordered Tests: Active Orders 24 hr Category Date Time Status Bedrest with BRP/BSC ROUTINE Activity 09/30/22 17:08 Active Code Status Order ROUTINE Care 09/30/22 17:08 Active IV Care Q6H Care 09/30/22 17:08 Active IV Insertion STAT Care 09/30/22 06:[address] in Observation ROUTINE Care 09/30/22 17:08 Active Vital Signs Q4H Care 09/30/22 17:08 Active Heart-Healthy Diet Diet 09/30/22 Dinner Active CHEST 1 VIEW (PORTABLE) Stat Exams 09/30/22 06:51 Completed Alcohol [ETHYL ALCOHOL] Stat Lab 09/30/22 09:00 Completed CBC W DIFF AM.LAB Lab 10/01/22 04:00 Ordered CBC W DIFF Stat Lab 09/30/22 06:45 Completed CMP AM.LAB Lab 10/01/22 04:00 Ordered CMP Stat Lab 09/30/22 06:45 Completed D-DIMER QUANTITATIVE Stat Lab 09/30/22 06:45 Completed NT PRO BNP Stat Lab 09/30/22 06:45 Completed PROTIME WITH INR Stat Lab 09/30/22 06:45 Completed PTT Q4H Lab 09/30/22 14:16 Completed PTT Stat Lab 09/30/22 06:45 Completed TROPONIN Q4H Lab 09/30/22 06:45 Completed TROPONIN Q4H Lab 09/30/22 08:42 Completed TROPONIN Q4H Lab 09/30/22 14:16 Completed Transfer Order Routine Transfer 09/30/22 Completed Medication Summary Generic Name Dose Route Start Last Admin Trade Name Lucretia PRN Reason Stop Dose Admin Buspirone HCl 15 mg 09/30/22 22:00 Buspirone Hcl 5 Mg Tablet PO 09/30/22 22:01 ONCE ONE Sodium Chloride 1,000 mls @ 50 mls/hr 09/30/22 10:30 09/30/22 10:22 Sodium Chloride 0.9% 1000 Ml IV 10/30/22 10:29 50 mls/hr .Q20H DG Administration Lorazepam 1 mg 09/30/22 17:22 09/30/22 17:46 Lorazepam 2 Mg/1 Ml 2 Mg Vial IV 10/30/22 17:21 1 mg Q2H PRN PRN Administration ANXIETY/AGITATION Pantoprazole Sodium 40 mg 09/30/22 22:00 Protonix (Pantoprazole) 40 Mg Tablet PO 09/30/22 22:01 ONCE ONE Potassium Bicarbonate 25 meq 09/30/22 22:00 Potassium Bicarbonate 25 Meq Tab PO 09/30/22 22:01 ONCE ONE Simvastatin 40 mg 09/30/22 22:00 Simvastatin 20 Mg Tablet PO 09/30/22 22:01 ONCE ONE Urea 15 gm 09/30/22 22:00 Urea 15 Gm Powd.Pack PO 09/30/22 22:01 ONCE ONE Discontinued Medications Generic Name Dose Route Start Last Admin Trade Name Lucretia PRN Reason Stop Dose Admin Aspirin 324 mg 09/30/22 07:35 09/30/22 07:43 Aspirin 81 Mg Tab.Chew PO 09/30/22 07:36 324 mg STAT ONE Administration Aspirin Confirm 09/30/22 07:41 Aspirin 81 Mg Tab.Chew Administered 09/30/22 07:42 Dose 324 mg .ROUTE .STK-MED ONE Enoxaparin Sodium 70 mg 09/30/22 19:30 09/30/22 19:53 Enoxaparin Sodium 80 Mg/0.8 Ml Syringe SQ 09/30/22 19:31 70 mg 1XONLY ONE Administration Heparin Sodium (Beef Lung) 5,000 unit 09/30/22 10:06 09/30/22 10:28 Heparin 5000 Units/0.5 Ml 5,000 Unit/0.5 Ml Syr IV 09/30/22 10:07 5,000 unit STAT ONE Administration Heparin Sodium (Beef Lung) Confirm 09/30/22 10:19 Heparin 5000 Units/0.5 Ml 5,000 Unit/0.5 Ml Syr Administered 09/30/22 10:20 Dose 5,000 unit .ROUTE .STK-MED ONE Heparin Sodium/Dextrose 25,000 units in 250 mls @ 10 mls/hr 09/30/22 10:30 09/30/22 10:32 Heparin 25,000 Units/D5w: Use Order Set Trell IV 10/30/22 10:29 1,000 units/hr .Q24H DG 10 mls/hr Administration Protocol 1,000 UNITS/HR Lorazepam 1 mg 09/30/22 07:35 09/30/22 07:43 Lorazepam 2 Mg/1 Ml 2 Mg Vial IV 09/30/22 07:36 1 mg STAT ONE Administration Lorazepam Confirm 09/30/22 07:42 Lorazepam 2 Mg/1 Ml 2 Mg Vial Administered 09/30/22 07:43 Dose 2 mg .ROUTE .STK-MED ONE Lab/Rad Data: Laboratory Result Diagrams 09/30/22 06:45 09/30/22 06:45 Laboratory Results 09/30/22 09/30/22 09/30/22 Range/Units 14:16 14:16 09:00 WBC (4.0-10.5) x10^3/uL RBC (4.1-5.4) x10^6/uL Hgb (12.0-16.0) g/dL Hct (35-47) % MCV (78-100) fL MCH (26-32) pg MCHC (32-36) g/dL RDW (11.5-14.0) % Plt Count (150-450) x10^3/uL MPV (7.5-11.0) fL Gran % (36.0-66.0) % Immature Gran % (Auto) (0.00-0.4) % Nucleat RBC Rel Count (0.00-0.1) % Eos # (Auto) (0-0.5) x10^3/uL Immature Gran # (Auto) (0.00-0.03) x10^3u/L Absolute Lymphs (auto) (1.0-4.6) x10^3/uL Absolute Monos (auto) (0.0-1.3) x10^3/uL Absolute Nucleated RBC (0.00-0.01) x10^3u/L Lymphocytes % (24.0-44.0) % Monocytes % (0.0-12.0) % Eosinophils % (0.00-5.0) % Basophils % (0.0-0.4) % Absolute Granulocytes (1.4-6.9) x10^3/uL Basophils # (0-0.4) x10^3/uL PT (9.4-12.5) SECONDS INR (0.8-3.0) APTT 102.5 H* (25.1-36.5) SECONDS D-Dimer (0.0-0.50) mg/L Sodium (137-145) mmol/L Potassium (3.5-5.1) mmol/L Chloride (98-107) mmol/L Carbon Dioxide (22-30) mmol/L Anion Gap (5-15) MEQ/L BUN (7-17) mg/dL Creatinine (0.52-1.04) mg/dL Estimated GFR ML/MIN Glucose (74-106) mg/dL Calcium (8.4-10.2) mg/dL Total Bilirubin (0.2-1.3) mg/dL AST (14-36) U/L ALT (0-35) U/L Alkaline Phosphatase (38-126) U/L Troponin I < 0.012 (0.000-0.034) ng/mL NT-Pro-B Natriuret Pep (0-900) pg/mL Serum Total Protein (6.3-8.2) g/dL Albumin (3.5-5.0) g/dL Ethyl Alcohol < 10 (0-10) mg/dL 09/30/22 09/30/22 09/30/22 Range/Units 08:42 06:45 06:45 WBC (4.0-10.5) x10^3/uL RBC (4.1-5.4) x10^6/uL Hgb (12.0-16.0) g/dL Hct (35-47) % MCV (78-100) fL MCH (26-32) pg MCHC (32-36) g/dL RDW (11.5-14.0) % Plt Count (150-450) x10^3/uL MPV (7.5-11.0) fL Gran % (36.0-66.0) % Immature Gran % (Auto) (0.00-0.4) % Nucleat RBC Rel Count (0.00-0.1) % Eos # (Auto) (0-0.5) x10^3/uL Immature Gran # (Auto) (0.00-0.03) x10^3u/L Absolute Lymphs (auto) (1.0-4.6) x10^3/uL Absolute Monos (auto) (0.0-1.3) x10^3/uL Absolute Nucleated RBC (0.00-0.01) x10^3u/L Lymphocytes % (24.0-44.0) % Monocytes % (0.0-12.0) % Eosinophils % (0.00-5.0) % Basophils % (0.0-0.4) % Absolute Granulocytes (1.4-6.9) x10^3/uL Basophils # (0-0.4) x10^3/uL PT 11.2 (9.4-12.5) SECONDS INR 1.06 (0.8-3.0) APTT 28.8 (25.1-36.5) SECONDS D-Dimer (0.0-0.50) mg/L Sodium (137-145) mmol/L Potassium (3.5-5.1) mmol/L Chloride (98-107) mmol/L Carbon Dioxide (22-30) mmol/L Anion Gap (5-15) MEQ/L BUN (7-17) mg/dL Creatinine (0.52-1.04) mg/dL Estimated GFR ML/MIN Glucose (74-106) mg/dL Calcium (8.4-10.2) mg/dL Total Bilirubin (0.2-1.3) mg/dL AST (14-36) U/L ALT (0-35) U/L Alkaline Phosphatase (38-126) U/L Troponin I < 0.012 < 0.012 (0.000-0.034) ng/mL NT-Pro-B Natriuret Pep (0-900) pg/mL Serum Total Protein (6.3-8.2) g/dL Albumin (3.5-5.0) g/dL Ethyl Alcohol (0-10) mg/dL 09/30/22 09/30/22 09/30/22 Range/Units 06:45 06:45 06:45 WBC 11.3 H (4.0-10.5) x10^3/uL RBC 3.68 L (4.1-5.4) x10^6/uL Hgb 11.0 L (12.0-16.0) g/dL Hct 33.7 L (35-47) % MCV 91.6 (78-100) fL MCH 29.9 (26-32) pg MCHC 32.6 (32-36) g/dL RDW 13.4 (11.5-14.0) % Plt Count 337 (150-450) x10^3/uL MPV 11.0 (7.5-11.0) fL Gran % 75.0 H (36.0-66.0) % Immature Gran % (Auto) 0.7 H (0.00-0.4) % Nucleat RBC Rel Count 0.0 (0.00-0.1) % Eos # (Auto) 0.37 (0-0.5) x10^3/uL Immature Gran # (Auto) 0.08 H (0.00-0.03) x10^3u/L Absolute Lymphs (auto) 1.55 (1.0-4.6) x10^3/uL Absolute Monos (auto) 0.75 (0.0-1.3) x10^3/uL Absolute Nucleated RBC 0.00 (0.00-0.01) x10^3u/L Lymphocytes % 13.8 L (24.0-44.0) % Monocytes % 6.7 (0.0-12.0) % Eosinophils % 3.3 (0.00-5.0) % Basophils % 0.5 (0.0-0.4) % Absolute Granulocytes 8.46 H (1.4-6.9) x10^3/uL Basophils # 0.06 (0-0.4) x10^3/uL PT (9.4-12.5) SECONDS INR (0.8-3.0) APTT (25.1-36.5) SECONDS D-Dimer < 0.19 (0.0-0.50) mg/L Sodium 131 L (137-145) mmol/L Potassium 3.3 L (3.5-5.1) mmol/L Chloride 101 (98-107) mmol/L Carbon Dioxide 22 (22-30) mmol/L Anion Gap 11.2 (5-15) MEQ/L BUN 7 (7-17) mg/dL Creatinine 0.39 L (0.52-1.04) mg/dL Estimated GFR > 60.0 ML/MIN Glucose 111 H (74-106) mg/dL Calcium 8.8 (8.4-10.2) mg/dL Total Bilirubin 0.40 (0.2-1.3) mg/dL AST 26 (14-36) U/L ALT 17 (0-35) U/L Alkaline Phosphatase 183 H (38-126) U/L Troponin I (0.000-0.034) ng/mL NT-Pro-B Natriuret Pep 216 (0-900) pg/mL Serum Total Protein 6.2 L (6.3-8.2) g/dL Albumin 3.2 L (3.5-5.0) g/dL Ethyl Alcohol (0-10) mg/dL - Progress Progress: improved Progress Note: 09/30/22 09:37 ASA 324mg po Ativan 1mg IV 09/30/22 09:[address] Dobbs, wants to [facility]. States that she just became a pt 2 wks ago and has been admitted and ruled out x2. Pt accepted by Dr. Boss, wants to start heparin. Hospitalist accepted pt for Dr. Boss 09/30/22 10:25 09/30/22 15:08 Bed did not become available at [facility], so Dr. Dobbs graciously accepted pt for observation. Counseled pt/family regarding: lab results, diagnosis, rad results - Departure Departure Disposition: Observation Clinical Impression: Chest pain Condition: Stable Critical Care Time: No
[2022-09-30 07:31] LABS: ALBUMIN 3.2 g/dL (3.5-5.0); ALKALINE PHOSPHATASE 183 U/L (38-126); ANION GAP 11.2 MEQ/L (5-15); BLOOD UREA NITROGEN 7 mg/dL (7-17); CHLORIDE 101 mmol/L (98-107); Calcium 8.8 mg/dL (8.4-10.2); Carbon Dioxide 22 mmol/L (22-30); Creatinine 1 0.39 mg/dL (0.52-1.04); EST GLOMERULAR FILTRATION RATE > 60.0 ML/MIN; Glucose 111 mg/dL (74-106); NT PRO BNP 216 pg/mL (0-900); Potassium 3.3 mmol/L (3.5-5.1); SGOT/AST 26 U/L (14-36); SGPT/ALT 17 U/L (0-35); SODIUM 131 mmol/L (137-145); Total Protein 6.2 g/dL (6.3-8.2)
[2022-09-30] MEDS ORDERED: BABY ASPIRIN 81 MG CHEW PO ONE (07:35)
[2022-09-30] MEDS ORDERED: Ativan 2 MG/1 ML VIAL IV ONE (07:35)
[2022-09-30] MEDS ORDERED: BABY ASPIRIN 81 MG CHEW ONE (07:41)
[2022-09-30] MEDS ORDERED: Ativan 2 MG/1 ML VIAL ONE (07:42)
--- NOTE | 2022-09-30 09:06 | XRAY ---
Indication: Chest pain. Comparison: September 26, 2022 Portable chest again demonstrates CT proven large Morganii hernia with herniated omental fat and colon in medial right lung base more than before. Remaining heart and lungs normal again with incidental left lung calcified granuloma. No new/acute findings.
[2022-09-30] MEDS ORDERED: HEPARIN 5000 UNITS/0.5 ML (HIGH RISK MED) IV ONE (10:06)
[2022-09-30 10:18] LABS: INR 1.06 (0.8-3.0); PROTIME 11.2 SECONDS (9.4-12.5); PTT 28.8 SECONDS (25.1-36.5)
[2022-09-30] MEDS ORDERED: HEPARIN 5000 UNITS/0.5 ML (HIGH RISK MED) ONE (10:19)
[2022-09-30] MEDS: Sodium Chloride 0.9% 1000 ML 1,000 ML IV SCH (10:22)
[2022-09-30] MEDS ORDERED: Heparin 25,000 units/D5W: USE ORDER SET PROTO 25,000 UNITS/250 ML BAG IV SCH (10:30)
[2022-09-30 15:19] LABS: INFLUENZA A NEGATIVE (NEGATIVE); INFLUENZA B NEGATIVE (NEGATIVE); RESPIRATORY SYNCTIAL VIRUS NEGATIVE (Negative); SARS-CoV-2 Xpert Express NEGATIVE (NEGATIVE)
[2022-09-30] MEDS: Ativan 2 MG/1 ML VIAL IV PRN (17:46)
[2022-09-30] MEDS ORDERED: ENOXAPARIN SODIUM SQ ONE (19:30)
[2022-09-30] MEDS ORDERED: ZOCOR 20MG PO ONE (22:00)
[2022-09-30] MEDS ORDERED: URE-NA PO ONE (22:00)
[2022-09-30] MEDS ORDERED: K-LYTE PO ONE (22:00)
[2022-09-30] MEDS ORDERED: Protonix 40MG Tablet PO ONE (22:00)
[2022-09-30] MEDS ORDERED: BUSPAR 5 MG PO ONE (22:00)
[2022-10-01] MEDS: Sodium Chloride 0.9% 1000 ML 1,000 ML IV SCH (04:28)
[2022-10-01 05:57] LABS: Absolute Neutrophil Ct (ANC) 5.39 x10^3/uL (1.4-6.9); Basophil (Absolute #) 0.08 x10^3/uL (0-0.4); Eosinophil % 8.5 % (0.00-5.0); Eosinophil (Absolute #) 0.76 x10^3/uL (0-0.5); Hematocrit 33.5 % (35-47); Hemoglobin 10.8 g/dL (12.0-16.0); Lymphocyte (Absolute #) 1.86 x10^3/uL (1.0-4.6); Lymphocytes % 20.7 % (24.0-44.0); Mean Cell Volume 93.6 fL (78-100); Mean Corpuscular Hemoglobin 30.2 pg (26-32); Mean Corpuscular Hgb Concent. 32.2 g/dL (32-36); Mean Platelet Volume 9.9 fL (7.5-11.0); Monocyte (Absolute #) 0.81 x10^3/uL (0.0-1.3); Neutrophil % 60.1 % (36.0-66.0); Platelet Count 385 x10^3/uL (150-450); Red Blood Count 3.58 x10^6/uL (4.1-5.4); Red Cell Distribution Width 13.7 % (11.5-14.0)
[2022-10-01 06:22] LABS: ALBUMIN 2.9 g/dL (3.5-5.0); ALKALINE PHOSPHATASE 155 U/L (38-126); ANION GAP 8.8 MEQ/L (5-15); BLOOD UREA NITROGEN 13 mg/dL (7-17); CHLORIDE 100 mmol/L (98-107); Calcium 8.6 mg/dL (8.4-10.2); Carbon Dioxide 25 mmol/L (22-30); EST GLOMERULAR FILTRATION RATE > 60.0 ML/MIN; Glucose 97 mg/dL (74-106); Potassium 3.4 mmol/L (3.5-5.1); SGOT/AST 21 U/L (14-36); SGPT/ALT 16 U/L (0-35); SODIUM 130 mmol/L (137-145); Total Protein 5.8 g/dL (6.3-8.2)
[2022-10-01] MEDS: Ativan 2 MG/1 ML VIAL IV PRN ×4 (07:58→18:25)
[2022-10-01] MEDS ORDERED: NON-FORMULARY ITEM (Cetirizine Hcl [Allergy Relief] 10 MG Capsule) PO SCH (10:00)
[2022-10-01] MEDS ORDERED: SYNTHROID 50 MCG PO SCH (10:00)
[2022-10-01] MEDS ORDERED: FOLATE 1 MG PO SCH (10:00)
[2022-10-01] MEDS ORDERED: NON-FORMULARY ITEM (Buspirone Hcl [Buspirone Hcl] 30 MG Tablet) PO SCH (10:00)
[2022-10-01] MEDS ORDERED: CLARITIN 10 MG PO SCH (10:00)
[2022-10-01] MEDS ORDERED: NORVASC 5 MG PO SCH (10:00)
[2022-10-01] MEDS ORDERED: URE-NA PO SCH (10:00)
[2022-10-01] MEDS ORDERED: MELOXICAM PO SCH (10:00)
[2022-10-01] MEDS ORDERED: Klor Con PO SCH (10:00)
[2022-10-01] MEDS ORDERED: VITAMIN B-1 100 MG PO SCH (10:00)
[2022-10-01] MEDS ORDERED: ZOLOFT 50 MG TABLET PO SCH (10:00)
[2022-10-01] MEDS ORDERED: Protonix 40MG Tablet PO SCH (10:00)
[2022-10-01] MEDS ORDERED: BUSPAR 5 MG PO SCH (10:00)
[2022-10-01] MEDS ORDERED: TYLENOL 325 MG PO PRN (16:50)
[2022-10-01] MEDS ORDERED: TYLENOL 325 MG ONE (16:51)
[2022-10-01 17:03] VITALS: BP 143/79; PULSE 86; O2SAT 97
[2022-10-01] MEDS ORDERED: ZOCOR 20MG PO SCH (22:00)
[2022-10-01] MEDS ORDERED: NON-FORMULARY ITEM (Pravastatin Sodium [Pravastatin Sodium] 40 MG Tablet) PO SCH (22:00)
--- NOTE | 2022-10-01 22:40 | PCM.SSS ---
History of Present Illness - Chief Complaint Chief Complaint: Chest Pain History of Present Illness: is a 62 year old female patient of Dr Mcfarland who has been readmitted for chest pain with nausea,3rd time in one week.Serial troponins were not elevated. Patient was discharged 09/29/22 with plan for complex hernia repair in [place]. Patient has Hx alcohol abuse and is a poor historian but C/O heaviness mid chest with nausea, denies diaphoresis or vomiting. States ate scrambled eggs this morning and has a good appetite. 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 - Review of Systems Constitutional: No Symptoms Eyes: No Symptoms Ears, Nose, & Throat: No Symptoms Respiratory: Short Of Breath Cardiac: Chest Pain Abdominal/Gastrointestinal: Nausea Genitourinary Symptoms: No Symptoms Musculoskeletal: No Symptoms Skin: No Symptoms Neurological: No Symptoms Psychological: Alcohol Abuse Medications & Allergies Home Medications: Home Medication List Levothyroxine Sodium 50 Mcg [Synthroid 50 Mcg] 50 mcg PO DAILY 08/15/22 [History Confirmed 09/30/22] Amlodipine Besylate 5 mg PO DAILY 08/16/22 [History Confirmed 09/30/22] Cetirizine HCl [Allergy Relief] 10 mg PO DAILY 08/16/22 [History Confirmed 09/30/22] Pravastatin Sodium 40 mg PO HS 08/16/22 [History Confirmed 09/30/22] PANTOPRAZOLE 40 mg Tablet [Protonix 40MG Tablet] 40 mg PO BID #60 tablet 08/18/22 [Rx Confirmed 09/30/22] Potassium Chloride [Klor-Con M10] 20 meq PO DAILY 30 Days #30 tablet 08/18/22 [Rx Confirmed 09/30/22] Buspirone HCl 15 mg PO BID 09/24/22 [History Confirmed 09/30/22] Folic Acid 1 mg PO DAILY 09/24/22 [History Confirmed 09/30/22] Sertraline HCl 50 mg [Zoloft 50 mg Tablet] 50 mg PO DAILY 09/24/22 [History Confirmed 09/30/22] Thiamine HCl 100 mg [Vitamin B-1 100 mg] 100 mg PO DAILY 09/24/22 [History Confirmed 09/30/22] Urea [Ure-Na] 15 g PO BID 09/26/22 [History Confirmed 09/30/22] Meloxicam 7.5 mg PO DAILY 10 Days #10 tablet 09/28/22 [Rx Confirmed 09/30/22] Allergies/Adverse Reactions: Allergies Allergy/AdvReac Type Severity Reaction Status Date / Time No Known Drug Allergies Allergy Verified 09/30/22 06:32 - Past Medical History Past Medical History: Yes Neurological History: Migraines, Seizures ENT History: No Pertinent History Cardiac History: High Cholesterol, Hypertension Respiratory History: COPD Endocrine Medical History: Hypothyroidism Musculoskelatal History: Arthritis GI Medical History: GERD, Hernia History: No Pertinent History Pyscho-Social History: Anxiety Reproductive Disorders: No Pertinent History Comment: pt poor historian, seizures from withdrawal 08/2022 - Past Surgical History Past Surgical History: No - Social History Smoking Status: Former smoker Exposure to second hand smoke: No Alcohol: None Drug Use: none - Physical Exam Vital Signs: Vital Signs - 24 hr Temp Pulse Resp BP BP Pulse Ox 10/01/22 16:00 97.8 F 86 16 143/79 97 10/01/22 13:18 85 149/80 10/01/22 11:55 98.2 F 85 18 149/80 98 10/01/22 06:58 97.5 F 89 17 162/79 97 10/01/22 04:00 97.9 F 97 H 18 129/64 97 09/30/22 23:30 97.9 F 88 17 111/56 97 General Appearance: no apparent distress Neurologic Exam: alert (oriented to peron and place,memory loss), cooperative, normal mood/affect Eye Exam: eyes nml inspection Ears, Nose, Throat Exam: normal ENT inspection Neck Exam: normal inspection Respiratory Exam: diminished breath sounds Cardiovascular Exam: regular rate/rhythm, other (no pitting edema no calf tenderness) Gastrointestinal/Abdomen Exam: soft, normal bowel sounds, tenderness Pelvic Exam: not done Rectal Exam: not done Back Exam: normal inspection Extremity Exam: normal inspection Results - Labs Lab/Micro Results: Lab Results-Last 24 Hours 10/01/22 10/01/22 10/01/22 Range/Units 05:32 05:32 05:32 WBC 9.0 (4.0-10.5) x10^3/uL RBC 3.58 L (4.1-5.4) x10^6/uL Hgb 10.8 L (12.0-16.0) g/dL Hct 33.5 L (35-47) % MCV 93.6 (78-100) fL MCH 30.2 (26-32) pg MCHC 32.2 (32-36) g/dL RDW 13.7 (11.5-14.0) % Plt Count 385 (150-450) x10^3/uL MPV 9.9 (7.5-11.0) fL Gran % 60.1 (36.0-66.0) % Immature Gran % (Auto) 0.8 H (0.00-0.4) % Nucleat RBC Rel Count 0.0 (0.00-0.1) % Eos # (Auto) 0.76 H (0-0.5) x10^3/uL Immature Gran # (Auto) 0.07 H (0.00-0.03) x10^3u/L Absolute Lymphs (auto) 1.86 (1.0-4.6) x10^3/uL Absolute Monos (auto) 0.81 (0.0-1.3) x10^3/uL Absolute Nucleated RBC 0.00 (0.00-0.01) x10^3u/L Lymphocytes % 20.7 L (24.0-44.0) % Monocytes % 9.0 (0.0-12.0) % Eosinophils % 8.5 H (0.00-5.0) % Basophils % 0.9 (0.0-0.4) % Absolute Granulocytes 5.39 (1.4-6.9) x10^3/uL Basophils # 0.08 (0-0.4) x10^3/uL Sodium 130 L (137-145) mmol/L Potassium 3.4 L (3.5-5.1) mmol/L Chloride 100 (98-107) mmol/L Carbon Dioxide 25 (22-30) mmol/L Anion Gap 8.8 (5-15) MEQ/L BUN 13 (7-17) mg/dL Creatinine 0.40 L (0.52-1.04) mg/dL Estimated GFR > 60.0 ML/MIN Glucose 97 (74-106) mg/dL Calcium 8.6 (8.4-10.2) mg/dL Total Bilirubin 0.30 (0.2-1.3) mg/dL AST 21 (14-36) U/L ALT 16 (0-35) U/L Alkaline Phosphatase 155 H (38-126) U/L Serum Total Protein 5.8 L (6.3-8.2) g/dL Albumin 2.9 L (3.5-5.0) g/dL TSH 3rd Generation 1.950 (0.47-4.68) mIU/L - Radiology Impressions Radiology Exams & Impressions: Radiology Procedures Category Date Time Status CHEST 1 VIEW (PORTABLE) Stat Exams 09/30/22 06:51 Completed Assessment/Plan (1) Chest pain, rule out acute myocardial infarction Status: Chronic Assessment & Plan: await transfer for higher level of care will need cardiac clearance prior to complex hernia surgery. Code(s): R07.9 - CHEST PAIN, UNSPECIFIED (2) Morgagni hernia Status: Chronic Code(s): Q79.0 - CONGENITAL DIAPHRAGMATIC HERNIA (3) Alcohol abuse Status: Chronic Code(s): F10.10 - ALCOHOL ABUSE, UNCOMPLICATED (4) Tobacco abuse Status: Chronic Code(s): Z72.0 - TOBACCO USE (5) Memory impairment of gradual onset Status: Acute Code(s): R41.3 - OTHER AMNESIA Hospital Summary - Hospital Course Hospital Course: discharged for higher level of care- see HPI - Vitals & Intake/Output Vital Signs: Vital Signs Temperature 97.8 F 10/01/22 16:00 Pulse Rate 86 10/01/22 16:00 Respiratory Rate 16 10/01/22 16:00 Blood Pressure 143/79 10/01/22 16:00 O2 Sat by Pulse Oximetry 97 10/01/22 16:00 Intake & Output: Intake & Output 09/29/22 09/30/22 10/01/22 10/02/22 11:59 11:59 11:59 11:59 Intake Total 2852 750 Balance 2852 750 Weight 72.6 kg 68 kg - Lab Result Diagrams: 10/01/22 05:32 10/01/22 05:32 Lab Results-Last 24 Hrs: Lab Results-Last 24 Hours 10/01/22 10/01/22 10/01/22 Range/Units 05:32 05:32 05:32 WBC 9.0 (4.0-10.5) x10^3/uL RBC 3.58 L (4.1-5.4) x10^6/uL Hgb 10.8 L (12.0-16.0) g/dL Hct 33.5 L (35-47) % MCV 93.6 (78-100) fL MCH 30.2 (26-32) pg MCHC 32.2 (32-36) g/dL RDW 13.7 (11.5-14.0) % Plt Count 385 (150-450) x10^3/uL MPV 9.9 (7.5-11.0) fL Gran % 60.1 (36.0-66.0) % Immature Gran % (Auto) 0.8 H (0.00-0.4) % Nucleat RBC Rel Count 0.0 (0.00-0.1) % Eos # (Auto) 0.76 H (0-0.5) x10^3/uL Immature Gran # (Auto) 0.07 H (0.00-0.03) x10^3u/L Absolute Lymphs (auto) 1.86 (1.0-4.6) x10^3/uL Absolute Monos (auto) 0.81 (0.0-1.3) x10^3/uL Absolute Nucleated RBC 0.00 (0.00-0.01) x10^3u/L Lymphocytes % 20.7 L (24.0-44.0) % Monocytes % 9.0 (0.0-12.0) % Eosinophils % 8.5 H (0.00-5.0) % Basophils % 0.9 (0.0-0.4) % Absolute Granulocytes 5.39 (1.4-6.9) x10^3/uL Basophils # 0.08 (0-0.4) x10^3/uL Sodium 130 L (137-145) mmol/L Potassium 3.4 L (3.5-5.1) mmol/L Chloride 100 (98-107) mmol/L Carbon Dioxide 25 (22-30) mmol/L Anion Gap 8.8 (5-15) MEQ/L BUN 13 (7-17) mg/dL Creatinine 0.40 L (0.52-1.04) mg/dL Estimated GFR > 60.0 ML/MIN Glucose 97 (74-106) mg/dL Calcium 8.6 (8.4-10.2) mg/dL Total Bilirubin 0.30 (0.2-1.3) mg/dL AST 21 (14-36) U/L ALT 16 (0-35) U/L Alkaline Phosphatase 155 H (38-126) U/L Serum Total Protein 5.8 L (6.3-8.2) g/dL Albumin 2.9 L (3.5-5.0) g/dL TSH 3rd Generation 1.950 (0.47-4.68) mIU/L - Radiology Exams Ordered Rad Exams-Entire Visit: Radiology Procedures Category Date Time Status CHEST 1 VIEW (PORTABLE) Stat Exams 09/30/22 06:51 Completed - Procedures and Test Procedures and Tests throughout Hospitalization: Therapy Orders & Screens 10/01/22 06:41 EKG ROUTINE Comment: Diagnosis: Chest Pain - Discharge Disposition: DC TO [facility] Condition: Stable Prescriptions: No Action Levothyroxine Sodium 50 Mcg [Synthroid 50 Mcg] 50 mcg PO DAILY Cetirizine HCl [Allergy Relief] 10 mg PO DAILY Pravastatin Sodium 40 mg PO HS Amlodipine Besylate 5 mg PO DAILY PANTOPRAZOLE 40 mg Tablet [Protonix 40MG Tablet] 40 mg PO BID #60 tablet Potassium Chloride [Klor-Con M10] 20 meq PO DAILY 30 Days #30 tablet Thiamine HCl 100 mg [Vitamin B-1 100 mg] 100 mg PO DAILY Sertraline HCl 50 mg [Zoloft 50 mg Tablet] 50 mg PO DAILY Buspirone HCl 15 mg PO BID Folic Acid 1 mg PO DAILY Urea [Ure-Na] 15 g PO BID Meloxicam 7.5 mg PO DAILY 10 Days #10 tablet Follow up with: YARITZA MCFARLAND MD [Primary Care Provider] -
== END 2022-10-01 18:29 | disposition home or self-care (01) ==
LOC: ED 06:24 → MED SURG 16:56
PROVIDERS: ADMIT Family Medicine; ATTEND Family Medicine
DX: R07.9 Chest pain, unspecified (principal); Q79.0 Congenital diaphragmatic hernia; F10.10 Alcohol abuse, uncomplicated; R41.3 Other amnesia; I10 Essential (primary) hypertension; E78.5 Hyperlipidemia, unspecified; Z72.0 Tobacco use; Z79.899 Other long term (current) drug therapy; Z20.828 Contact with and (suspected) exposure to other viral communicable diseases
CPT/HCPCS: 0241U; 36000; 36415; 71045; 80053; 83880; 84443; 84484; 85025; 85379; 85610; 85730; 93005; 96365; 96374; 99285; G0480; 80307; 93268; 96375; J1644; J1650; J2060; A9270-GY; G0378

== ENCOUNTER 2022-10-04 05:00 | Emergency (ER) | payer OTHER ==
[2022-10-04 05:46] LABS: Absolute Neutrophil Ct (ANC) 7.14 x10^3/uL (1.4-6.9); Basophil (Absolute #) 0.08 x10^3/uL (0-0.4); Eosinophil % 5.4 % (0.00-5.0); Hematocrit 34.2 % (35-47); Hemoglobin 11.2 g/dL (12.0-16.0); Lymphocyte (Absolute #) 2.53 x10^3/uL (1.0-4.6); Lymphocytes % 22.6 % (24.0-44.0); Mean Cell Volume 91.7 fL (78-100); Mean Corpuscular Hgb Concent. 32.7 g/dL (32-36); Mean Platelet Volume 10.3 fL (7.5-11.0); Monocyte (Absolute #) 0.75 x10^3/uL (0.0-1.3); Monocytes % 6.7 % (0.0-12.0); Neutrophil % 63.8 % (36.0-66.0); Platelet Count 464 x10^3/uL (150-450); Red Blood Count 3.73 x10^6/uL (4.1-5.4); Red Cell Distribution Width 13.2 % (11.5-14.0); White Blood Count 11.2 x10^3/uL (4.0-10.5)
--- NOTE | 2022-10-04 05:48 | ERPHSYRPT ---
- History of Present Illness Historian: patient, EMS Exam Limitations: no limitations Patient Subjective Stated Complaint: pt states "my chest has been hurting since I got released from the [facility]" Triage Nursing Assessment: pt presents to ED via ambulance, alert and oriented x3, skin pwd, pt c/o substernal chest pain since she got released from [facility], pt discharged from [facility] on 10/03/22 around noon. pt extremely anxious in triage, pt keeps repeating "I need something for my nerves." Physician History: 62 yo wf who was discharged from [facility] yesterday for chest pain after brief stay at [place] until bed opened up presents w substernal chest pain. Pain is 6/10 and has been up to 10/10. Nothing makes the pain better or worse, and it is described as "pressure". It is accompanied by dyspnea/nausea/vomiting wo diaphoresis. Pt states that the pain has a duration of 16 hours but has never been pain free over the last several days. Pt has been ruled out by Dr. Mcfarland several times for the same problem. Timing/Duration: other (16 hours/chronic) Activities at Onset: rest, sleep Quality: pressure Location: substernal Chest Pain Radiation: no radiation Severity of Pain-Max: severe Severity of Pain-Current: moderate Modifying Factors: Improves With: nothing Associated Symptoms: nausea, vomiting, shortness of breath Prior Chest Pain/Cardiac Workup: non-cardiac Nitro Today/Relief: no nitro taken today Aspirin Treatment Today: no aspirin today Allergies/Adverse Reactions: No Known Drug Allergies Allergy (Verified 10/04/22 05:08) Home Medications: Levothyroxine Sodium 50 Mcg [Synthroid 50 Mcg] 50 mcg PO DAILY 08/15/22 [History] Amlodipine Besylate 5 mg PO DAILY 08/16/22 [History] Cetirizine HCl [Allergy Relief] 10 mg PO DAILY 08/16/22 [History] Pravastatin Sodium 40 mg PO HS 08/16/22 [History] Buspirone HCl 15 mg PO BID 09/24/22 [History] Folic Acid 1 mg PO DAILY 09/24/22 [History] Sertraline HCl 50 mg [Zoloft 50 mg Tablet] 50 mg PO DAILY 09/24/22 [History] Thiamine HCl 100 mg [Vitamin B-1 100 mg] 100 mg PO DAILY 09/24/22 [History] Aspirin [Aspirin EC] 81 mg PO DAILY 10/04/22 [History] Carvedilol 3.125 mg [Coreg 3.125 MG] 3.125 mg PO BID 10/04/22 [History] Thiamine HCl 100 mg [Vitamin B-1 100 mg] 100 mg PO DAILY 10/04/22 [History] Hx Tetanus, Diphtheria Vaccination/Date Given: (unknown) Hx Influenza Vaccination/Date Given: Yes (08/17/22) Hx Pneumococcal Vaccination/Date Given: No Immunizations Up to Date: No Travel Risk - International Travel Have you traveled outside of the country in past 3 weeks: No - Coronavirus Screening Are you exhibiting any of the following symptoms?: No Close contact with a COVID-19 positive Pt in past 14-21 Days: No - Vaccine Status Have you recieved a Covid-19 vaccination: Yes [employer] Superintendent: Unknown - Vaccination Dates Dates if Unknown: unknown Comment: does not remember what kind or when or if she got boosters - Review of Systems Constitutional: No Symptoms Eyes: No Symptoms Ears, Nose, & Throat: No Symptoms Respiratory: No Symptoms, Dyspnea Cardiac: No Symptoms, Chest Pain Abdominal/Gastrointestinal: No Symptoms, Vomiting Genitourinary Symptoms: No Symptoms Musculoskeletal: No Symptoms Skin: No Symptoms Neurological: No Symptoms Psychological: No Symptoms Endocrine: No Symptoms Hematologic/Lymphatic: No Symptoms Immunological/Allergic: No Symptoms - Past Medical History Pertinent Past Medical History: Yes Neurological History: Migraines, Seizures ENT History: No Pertinent History Cardiac History: High Cholesterol, Hypertension Respiratory History: COPD Endocrine Medical History: Hypothyroidism Musculoskeletal History: Arthritis GI Medical History: GERD, Hernia History: No Pertinent History Psycho-Social History: Anxiety Female Reproductive Disorders: No Pertinent History Other Medical History: pt poor historian, seizures from withdrawal 08/2022 - Past Surgical History Past Surgical History: No - Social History Smoking Status: Former smoker Exposure to second hand smoke: No Drug Use: none Patient Lives Alone: No - Nursing Vital Signs Nursing Vital Signs: Initial Vital Signs Temperature 98.0 F 10/04/22 05:09 Pulse Rate 86 10/04/22 05:09 Respiratory Rate 18 10/04/22 05:09 Blood Pressure 126/80 10/04/22 05:09 O2 Sat by Pulse Oximetry 100 10/04/22 05:09 Pain Scale Pain Intensity 0 WNL - Physical Exam General Appearance: no apparent distress, anxiety Eye Exam: PERRL/EOMI Ears, Nose, Throat Exam: normal ENT inspection, TMs normal, pharynx normal, moist mucous membranes Neck Exam: normal inspection, non-tender, supple, full range of motion, No meningismus, No mass, No Brudzinski, No Kernig's Respiratory Exam: normal breath sounds, lungs clear, airway intact, No chest tenderness, No respiratory distress Cardiovascular Exam: regular rate/rhythm, normal heart sounds, normal peripheral pulses, capillary refill <2 sec, No murmur Gastrointestinal/Abdomen Exam: soft, normal bowel sounds, No tenderness Back Exam: normal inspection, normal range of motion, No CVA tenderness, No vertebral tenderness Extremity Exam: normal inspection, normal range of motion Neurologic Exam: alert, oriented x 3, cooperative, electronic equipment installer II-XII nml as tested, normal mood/affect Skin Exam: normal color, warm, dry Lymphatic Exam: No adenopathy SpO2 Interpretation: normal SpO2: 100 O2 Delivery: Room Air - Course Nursing assessment & vital signs reviewed: Yes EKG Interpreted by Me: RATE (NSR/Rate86/shimon-lateral flipped T waves/No change from previous EKG) - Radiology Exams Chest X-ray Interpretation: Interpreted by me (Nothing acute per ER read) Ordered Tests: Active Orders 24 hr Category Date Time Status EKG-ER Only STAT Care 10/04/22 05:39 Active IV Insertion STAT Care 10/04/22 06:07 Active CHEST 1 VIEW (PORTABLE) Stat Exams 10/04/22 05:39 Taken CBC W DIFF Stat Lab 10/04/22 05:20 Completed CMP Stat Lab 10/04/22 05:20 Completed NT PRO BNP Stat Lab 10/04/22 05:20 Completed PROTIME WITH INR Stat Lab 10/04/22 05:20 Completed PTT Stat Lab 10/04/22 05:20 Completed TROPONIN Q4H Lab 10/04/22 05:20 Completed TROPONIN Q4H Lab 10/04/22 09:45 Ordered TROPONIN Q4H Lab 10/04/22 13:45 Ordered Medication Summary Discontinued Medications Generic Name Dose Route Start Last Admin Trade Name Freq PRN Reason Stop Dose Admin Ketorolac Tromethamine 15 mg 10/04/22 06:42 10/04/22 06:44 Ketorolac Tromethamine 30 Mg/Ml Inj IV 10/04/22 06:43 15 mg STAT ONE Administration Ketorolac Tromethamine Confirm 10/04/22 06:43 Ketorolac Tromethamine 30 Mg/Ml Inj Administered 10/04/22 06:44 Dose 30 mg .ROUTE .STK-MED ONE Lab/Rad Data: Laboratory Result Diagrams 10/04/22 05:20 10/04/22 05:20 Laboratory Results 10/04/22 10/04/22 10/04/22 Range/Units 05:20 05:20 05:20 WBC (4.0-10.5) x10^3/uL RBC (4.1-5.4) x10^6/uL Hgb (12.0-16.0) g/dL Hct (35-47) % MCV (78-100) fL MCH (26-32) pg MCHC (32-36) g/dL RDW (11.5-14.0) % Plt Count (150-450) x10^3/uL MPV (7.5-11.0) fL Gran % (36.0-66.0) % Immature Gran % (Auto) (0.00-0.4) % Nucleat RBC Rel Count (0.00-0.1) % Eos # (Auto) (0-0.5) x10^3/uL Immature Gran # (Auto) (0.00-0.03) x10^3u/L Absolute Lymphs (auto) (1.0-4.6) x10^3/uL Absolute Monos (auto) (0.0-1.3) x10^3/uL Absolute Nucleated RBC (0.00-0.01) x10^3u/L Lymphocytes % (24.0-44.0) % Monocytes % (0.0-12.0) % Eosinophils % (0.00-5.0) % Basophils % (0.0-0.4) % Absolute Granulocytes (1.4-6.9) x10^3/uL Basophils # (0-0.4) x10^3/uL PT 11.0 (9.4-12.5) SECONDS INR 1.04 (0.8-3.0) APTT 27.8 (25.1-36.5) SECONDS Sodium 133 L (137-145) mmol/L Potassium 3.6 (3.5-5.1) mmol/L Chloride 102 (98-107) mmol/L Carbon Dioxide 23 (22-30) mmol/L Anion Gap 11.1 (5-15) MEQ/L BUN < 2 L (7-17) mg/dL Creatinine 0.44 L (0.52-1.04) mg/dL Estimated GFR > 60.0 ML/MIN Glucose 100 (74-106) mg/dL Calcium 8.8 (8.4-10.2) mg/dL Total Bilirubin 0.30 (0.2-1.3) mg/dL AST 26 (14-36) U/L ALT 18 (0-35) U/L Alkaline Phosphatase 168 H (38-126) U/L Troponin I < 0.012 (0.000-0.034) ng/mL NT-Pro-B Natriuret Pep 295 (0-900) pg/mL Serum Total Protein 6.5 (6.3-8.2) g/dL Albumin 3.2 L (3.5-5.0) g/dL 10/04/22 Range/Units 05:20 WBC 11.2 H (4.0-10.5) x10^3/uL RBC 3.73 L (4.1-5.4) x10^6/uL Hgb 11.2 L (12.0-16.0) g/dL Hct 34.2 L (35-47) % MCV 91.7 (78-100) fL MCH 30.0 (26-32) pg MCHC 32.7 (32-36) g/dL RDW 13.2 (11.5-14.0) % Plt Count 464 H (150-450) x10^3/uL MPV 10.3 (7.5-11.0) fL Gran % 63.8 (36.0-66.0) % Immature Gran % (Auto) 0.8 H (0.00-0.4) % Nucleat RBC Rel Count 0.0 (0.00-0.1) % Eos # (Auto) 0.60 H (0-0.5) x10^3/uL Immature Gran # (Auto) 0.09 H (0.00-0.03) x10^3u/L Absolute Lymphs (auto) 2.53 (1.0-4.6) x10^3/uL Absolute Monos (auto) 0.75 (0.0-1.3) x10^3/uL Absolute Nucleated RBC 0.00 (0.00-0.01) x10^3u/L Lymphocytes % 22.6 L (24.0-44.0) % Monocytes % 6.7 (0.0-12.0) % Eosinophils % 5.4 H (0.00-5.0) % Basophils % 0.7 (0.0-0.4) % Absolute Granulocytes 7.14 H (1.4-6.9) x10^3/uL Basophils # 0.08 (0-0.4) x10^3/uL PT (9.4-12.5) SECONDS INR (0.8-3.0) APTT (25.1-36.5) SECONDS Sodium (137-145) mmol/L Potassium (3.5-5.1) mmol/L Chloride (98-107) mmol/L Carbon Dioxide (22-30) mmol/L Anion Gap (5-15) MEQ/L BUN (7-17) mg/dL Creatinine (0.52-1.04) mg/dL Estimated GFR ML/MIN Glucose (74-106) mg/dL Calcium (8.4-10.2) mg/dL Total Bilirubin (0.2-1.3) mg/dL AST (14-36) U/L ALT (0-35) U/L Alkaline Phosphatase (38-126) U/L Troponin I (0.000-0.034) ng/mL NT-Pro-B Natriuret Pep (0-900) pg/mL Serum Total Protein (6.3-8.2) g/dL Albumin (3.5-5.0) g/dL - Progress Progress Note: 10/04/22 06:43 Pt stable w still negative troponin after several days of chest pain and unchanged EKG. She was evaluated by [facility] and discharged yesterday. 10/04/22 06:51 15mg IV Toradol Counseled pt/family regarding: lab results, diagnosis, need for follow-up, rad results - Departure Departure Disposition: Home Clinical Impression: Chest pain Condition: Stable Critical Care Time: No Referrals: YARITZA MCFARLAND MD [Primary Care Provider] - Follow up/PCP as directed Instructions: Chest Pain (DC) Additional Instructions: Follow up with your family MD Return to ER for increasing pain or shortness of breath
[2022-10-04 05:54] LABS: INR 1.04 (0.8-3.0); PTT 27.8 SECONDS (25.1-36.5)
[2022-10-04 06:33] LABS: ALBUMIN 3.2 g/dL (3.5-5.0); ALKALINE PHOSPHATASE 168 U/L (38-126); ANION GAP 11.1 MEQ/L (5-15); CHLORIDE 102 mmol/L (98-107); Calcium 8.8 mg/dL (8.4-10.2); Carbon Dioxide 23 mmol/L (22-30); Creatinine 1 0.44 mg/dL (0.52-1.04); EST GLOMERULAR FILTRATION RATE > 60.0 ML/MIN; Glucose 100 mg/dL (74-106); NT PRO BNP 295 pg/mL (0-900); Potassium 3.6 mmol/L (3.5-5.1); SGOT/AST 26 U/L (14-36); SGPT/ALT 18 U/L (0-35); SODIUM 133 mmol/L (137-145); Total Protein 6.5 g/dL (6.3-8.2)
[2022-10-04 06:36] LABS: BLOOD UREA NITROGEN < 2 mg/dL (7-17)
[2022-10-04] MEDS ORDERED: TORAdol 30 mg Injection ONE (06:43)
[2022-10-04] MEDS: TORAdol 30 mg Injection IV ONE (06:44)
[2022-10-04 06:49] VITALS: BP 127/87; PULSE 86
[2022-10-04 06:52] VITALS: O2SAT 100
--- NOTE | 2022-10-04 09:15 | XRAY ---
Indication: Chest pain. Comparison: September 30, 2022 Portable chest unchanged again demonstrating CT proven large Morganii hernia with herniated omental fat and colon in medial right lung base. Remaining heart and lungs unremarkable again with incidental left lung calcified granuloma. No new/acute findings.
== END 2022-10-04 06:54 | disposition home or self-care (01) ==
LOC: ED 05:00
DX: R07.9 Chest pain, unspecified (principal); R06.00 Dyspnea, unspecified; R11.2 Nausea with vomiting, unspecified; E78.5 Hyperlipidemia, unspecified; I10 Essential (primary) hypertension; Z79.899 Other long term (current) drug therapy
CPT/HCPCS: 36000; 36415; 71045; 80053; 83880; 84484; 85025; 85610; 85730; 93005; 96374; 99284; J1885